=== PATIENT | female | born 1940 | race Caucasian/White ===

== ENCOUNTER 2018-06-25 12:13 | Inpatient (IN) | payer MEDICARE, SELFPAY ==
[2018-06-25] VITALS (18 sets, daily range): BP systolic 97–203; BP diastolic 53–118; PULSE 103–148; RESP 14–50; TEMP 36.4–36.7; O2SAT 97–100; BMI 19.2
--- NOTE | 2018-06-25 | DI.ECHO.S_ITS ---
[facility] +---------+ : : [address] : : : [place], [place] : : : : [id number] : : : : Phone: [phone]+ Echocardiogram Report + + :Name: TJ CACERES Study Date: 06/26/2018 Height: 62 in : :[facility] Exam Location: [facility] Weight: 105 lb : : Gender: Female BSA: 1.5 m2 : :: 1940 Age: 77 yrs BP: 168/95 mmHg: :Reason For Study: Atrial Fibrillation : :Ordering Physician: Yassine : :Hospitalist Performed By: Lea Ramirez : :Referring: JUNE CORTÉS : + + Interpretation Summary 1) Mild concentric left ventricular hypertrophy with normal size and low normal systolic function (EF 50-55%). 2) Mildly enlarged right ventricular size with normal function. 3) Both atria are severely dilated. 4) The right ventricular systolic pressure is estimated to be at least 41 mmHg based on an estimated right atrial pressure of 8 mm Hg. 5) No prior Echo available for comparison. Procedure: A two-dimensional transthoracic echocardiogram with color flow and Doppler was performed. The study quality was technically good. There is no prior echocardiogram noted for this patient. The patient was in atrial fibrillation with rapid ventricular response during the exam with a heart rate exceeding 100 bpm. Left Ventricle: The left ventricle is normal in size. There is mild concentric left ventricular hypertrophy. ([id number] variability due to atrial fibrillation). Left ventricular systolic function is low normal. The ejection fraction is estimated to be 50-55%. Diastolic function could not be accurately assessed due to atrial fibrillation. Right Ventricle: The right ventricle is mildly dilated. The right ventricular systolic function is normal. Atria: Both atria are severely dilated. The interatrial septum is intact with no evidence for an atrial septal defect. Mitral Valve: The mitral valve is normal in structure and function. There is mild mitral regurgitation. Aortic Valve: The aortic valve is trileaflet. The aortic valve opens well. There is no aortic valve stenosis. No aortic regurgitation is present. Tricuspid Valve: The tricuspid valve is normal in structure and function. There is mild tricuspid regurgitation. The right ventricular systolic pressure is estimated to be at least 41 mmHg based on an estimated right atrial pressure of 8 mm Hg. Pulmonic Valve: The pulmonic valve is normal in structure and function. There is a trace or physiologic amount of pulmonic regurgitation. Great Vessels: The aortic root is normal size. The ascending aorta is normal in size. The IVC is dilated (diameter is greater than 2.1 cm) yet it collapses greater than 50% with a sniff. This suggests a right atrial pressure of 8 mm Hg. Pericardium/ Pleura There is no pericardial effusion. There is no pleural effusion. MMode/2D Measurements & Calculations LVIDd: 4.7 cm LVOT diam: 2.1 cm LVIDs: 2.9 cm Ao root diam: 3.5 cm FS: 38.4 % Ao Arch Diam (Prox Trans): 3.3 cm IVSd: 0.88 cm LVPWd: 1.2 cm LV nelson. diameter/BSA (cm/m^2): 3.2 LV sys. diameter/BSA (cm/m^2): 2.0 LA A2 area: 25.9 cm2 RA long axis: 5.4 cm LA A4 area: 30.6 cm2 RA area: 21.0 cm2 LA length (vol): 6.3 cm RA vol: 69.3 ml LA vol: 106.8 ml RA : 47.7 ml/m2 LA vol index: 73.5 ml/m2 IVC diam: 2.1 cm TAPSE: 1.8 cm Doppler Measurements & Calculations Ao V2 max: 92.6 cm/sec LVOT Max Johnie: 82.7 cm/sec Ao V2 mean: 55.7 cm/sec LV V1 max P.7 mmHg Ao max P.4 mmHg LV V1 VTI: 13.3 cm Ao mean P.4 mmHg AGUSTÍN(I,D): 2.8 cm2 Ao V2 VTI: 15.8 cm AGUSTÍN(V,D): 3.0 cm2 sev ratio: 0.84 AGUSTÍN indexed to BSA (cm^2/m^2): 1.9 TR max johnie: 285.4 cm/sec TR max P.6 mmHg Reading Physician:05:44 PM
--- NOTE | 2018-06-25 12:35 | ED_ITS ---
HPI - Arrhythmia/Palpitations General Chief Complaint: Arrhythmia/Palpitations Stated Complaint: AFIB,SICK Time Seen by Provider: 06/25/18 12:34 Source: patient and family Mode of arrival: ambulatory Limitations: no limitations History of Present Illness HPI narrative: Patient is a 77-year-old female with a history of paroxysmal atrial fibrillation here for palpitations and shortness of breath and chest pressure. She states that she occasionally gets atrial fibrillation. She is unsure exactly when she went into her current episode of atrial fibrillation however has felt more symptoms today. Patient is on warfarin for this. She has had atrial fibrillation in the past requiring IV medications at admission to the hospital. She states she has been taking her medications. Related Data Home Medications Medication Instructions Recorded Confirmed amiodarone 1 tab PO DAILY 06/25/18 06/25/18 gabapentin 1 cap PO BEDTIME 06/25/18 06/25/18 metoprolol succinate 1 tab PO BID 06/25/18 06/25/18 ondansetron 1 tab PO Q4-6H PRN 06/25/18 06/25/18 oxycodone-acetaminophen 2 tab PO BID 06/25/18 06/25/18 paroxetine HCl 1 tab PO DAILY 06/25/18 06/25/18 warfarin 1 tab PO QPM 06/25/18 06/25/18 Allergies Allergy/AdvReac Type Severity Reaction Status Date / Time Latex, Natural Rubber Allergy Mild Hives Verified 06/25/18 12:33 Review of Systems Constitutional Reports fatigue and Denies fever(s) Cardiovascular Reports chest pain, Reports rapid heart rate, Reports irregular heart rhythm, Reports lightheadedness, Reports palpitations and Reports dyspnea Respiratory Reports dyspnea Gastrointestinal Gastrointestinal: Denies abdominal pain, Denies nausea and Denies vomiting Musculoskeletal Denies myalgias and Denies arthralgias Integumentary/Breasts Denies lesions and Denies rash Endocrine Reports fatigue and Reports palpitations Hematologic/Lymphatic Denies easy bleeding and Denies easy bruising [facility] Medical History Atrial fibrillation with RVR (Acute) Chronic anticoagulation (Acute) History of stroke (Acute) Expressive aphasia (Acute) Chronic back pain (Acute) CVA (cerebrovascular accident) (Acute) Dysarthria (Acute) Smoker (Acute) Surgical History Hx of cholecystectomy (Acute) Social History household members: family and children Smoking Status: Current some day smoker Exam Initial Vital Signs Initial Vital Signs: Vital Signs Temperature 97.5 F L 06/25/18 12:29 Pulse Rate 148 H 06/25/18 12:29 Respiratory Rate 50 H 06/25/18 12:29 Blood Pressure 179/103 H 06/25/18 12:29 Pulse Oximetry 97 06/25/18 12:29 Const General: cooperative and well groomed Orientation: alert, awake and oriented x3 HENMT Head: normal to inspection and normocephalic Resp Effort & Inspection: normal respiratory effort Auscultation: clear to auscultation bilaterally Cardio Rate: tachycardic Rhythm: abnormal rhythm irregularly irregular Pulses: radial pulses present GI Inspection: non-distended Palpation: soft and No tender Skin Lesions: no lesions Rashes: no rashes Neuro General: alert, awake and oriented x3 Extrem General: normal to inspection and capillary refill normal Psych Appearance: grossly normal and well kempt Course Orders Ordered: ED Orders 06/25/18 12:30 B Type Natriuretic Peptide Stat Basic Metabolic Panel Stat Complete Blood Count AUTO DIFF Stat Troponin I Stat 06/25/18 12:36 XR chest 1V Stat 06/25/18 13:02 Prothrombin Time INR Stat 06/25/18 16:20 Consult to Dietitian, Adult Routine 06/25/18 17:38 Hepatic (Liver) Panel Routine Magnesium Urgent 06/26/18 05:00 Basic Metabolic Panel Routine Complete Blood Count AUTO DIFF Routine Prothrombin Time INR Routine Acetaminophen (Tylenol) 650 mg PO Q6HR PRN PRN Reason: As Needed for Fever/Mild Pain Amiodarone HCl (Cordarone) 200 mg PO DAILY TEVIN Gabapentin (Neurontin) 300 mg PO BEDTIME TEVIN Sodium Chloride (Normal Saline 0.9%) 1,000 mls @ 50 mls/hr IV CONT TEVIN Last Infusion: 06/25/18 15:54 Dose: 100 mls/hr Admin: 06/25/18 12:49 Dose: 100 mls/hr Amiodarone HCl/Dextrose (Nexterone) 360 mg in 200 mls @ 33.333 mls/hr IV NOW ONE; Protocol Stop: 06/25/18 22:24 Last Admin: 06/25/18 16:52 Dose: 33.3 ml/hr, 33.3 mls/hr Amiodarone HCl/Dextrose (Nexterone) 360 mg in 200 mls @ 16.7 mls/hr IV CONT TEVIN ; Protocol Stop: 07/26/18 10:24 Potassium Chloride 40 meq/ (Sodium Chloride) 520 mls @ 130 mls/hr IV NOW ONE Stop: 06/25/18 20:29 Last Admin: 06/25/18 17:43 Dose: 130 mls/hr Magnesium Hydroxide (Milk Of Magnesia) 30 ml PO BID TEVIN Metoprolol Succinate (Toprol Xl) 50 mg PO BID [facility] Last Admin: 06/25/18 18:08 Dose: 50 mg Morphine Sulfate (Morphine) 1 mg IV Q4HR PRN PRN Reason: Pain, Moderate (4-6) Ondansetron HCl (Zofran) 4 mg IV Q4HR PRN PRN Reason: Nausea And Vomiting Last Admin: 06/25/18 17:43 Dose: 4 mg Oxycodone/Acetaminophen (Percocet 5/325) 2 tab PO BID [facility] Paroxetine HCl (Paxil) 10 mg PO DAILY [facility] Warfarin Sodium (Coumadin) 4 mg PO QPM [facility] Last Admin: 06/25/18 18:08 Dose: 4 mg Discontinued Medications Diltiazem HCl (Cardizem) 10 mg IV NOW ONE Stop: 06/25/18 12:36 Last Admin: 06/25/18 12:49 Dose: 10 mg Enoxaparin Sodium (Lovenox) 40 mg SUBCUT NOW ONE Stop: 06/25/18 18:16 Last Admin: 06/25/18 18:16 Dose: 40 mg Diltiazem HCl 125 mg/ Dextrose 125 mls @ 5 mls/hr IV TITRATE [facility]; Protocol Last Titration: 06/25/18 16:00 Dose: 0 mg/hr, 0 mls/hr Titration: 06/25/18 15:53 Dose: 25 mg/hr, 25 mls/hr Titration: 06/25/18 15:23 Dose: 25 mg/hr, 25 mls/hr Titration: 06/25/18 15:00 Dose: 20 mg/hr, 20 mls/hr Titration: 06/25/18 14:10 Dose: 15 mg/hr, 15 mls/hr Titration: 06/25/18 13:53 Dose: 10 mg/hr, 10 mls/hr Admin: 06/25/18 13:03 Dose: 5 mg/hr, 5 mls/hr Amiodarone HCl/Dextrose (Nexterone) 150 mg in 100 mls @ 600 mls/hr IV NOW ONE; Protocol Stop: 06/25/18 16:24 Last Infusion: 06/25/18 16:52 Dose: 0 mls/hr Admin: 06/25/18 16:21 Dose: 600 mls/hr Ondansetron HCl (Zofran) 4 mg IV NOW ONE Stop: 06/25/18 12:36 Last Admin: 06/25/18 12:49 Dose: 4 mg Ondansetron HCl (Zofran) 4 mg IV NOW ONE Stop: 06/25/18 13:56 Last Admin: 06/25/18 13:57 Dose: 4 mg Oxycodone/Acetaminophen (Percocet 5/325) 1 tab PO NOW ONE Stop: 06/25/18 15:33 Last Admin: 06/25/18 15:40 Dose: 1 tab Vital Signs - 8 hr 06/25/18 12:29 06/25/18 12:49 06/25/18 12:51 Temperature 97.5 F L Pulse Rate 148 H 129 H 137 H Respiratory Rate 50 H 28 H Blood Pressure 179/103 H 202/105 H Blood Pressure [Right Arm] 203/108 H Pulse Oximetry 97 98 06/25/18 13:03 06/25/18 14:07 06/25/18 15:07 Temperature Pulse Rate 120 H 134 H 115 H Respiratory Rate 18 14 Blood Pressure 171/100 H Blood Pressure [Right Arm] 186/111 H 97/53 L Pulse Oximetry 100 100 06/25/18 15:45 06/25/18 16:00 06/25/18 16:35 Temperature 98.0 F Pulse Rate 145 H 135 H 135 H Respiratory Rate 26 H Blood Pressure 163/92 H 159/107 H 184/104 H Blood Pressure [Right Arm] Pulse Oximetry 06/25/18 18:08 06/25/18 19:20 06/25/18 19:21 Temperature Pulse Rate 126 H 114 H Respiratory Rate Blood Pressure 158/118 H 168/103 H Blood Pressure [Right Arm] Pulse Oximetry 99 MDM - Arrhythmia/Palpitations Lab Data Attestation: I reviewed the patient's lab results. Result diagrams: 06/25/18 12:30 06/25/18 12:30 Lab Results 06/25/18 06/25/18 06/25/18 Range/Units 12:30 12:30 13:02 WBC 14.0 H (4.5-11.0) X10^3/uL RBC 4.69 (4.0-5.2) X10^6/uL Hgb 14.7 (12.0-16.0) g/dL Hct 43.3 (36-46) % MCV 92.2 (80-100) fL MCH 31.4 (26-34) PG MCHC 34.1 (30-36) % RDW 14.7 (11.6-14.8) % Plt Count 395 (150-400) X10^3/uL Neut % (Auto) 75.0 (50-75) % Lymph % (Auto) 16.4 L (25-40) % [place] % (Auto) 8.3 (3-14) % Eos % (Auto) 0.0 L (2-4) % Baso % (Auto) 0.3 (0-2) % Neut # (Auto) 61833 H (6387-2132) /uL PT 20.6 H (10.1-12.7) SECONDS INR 1.9 H (0.9-1.3) Sodium 140 (137-145) mmol/L Potassium 3.6 (3.4-5.1) mmol/L Chloride 100 (98-107) mmol/L Carbon Dioxide 18 L (22-32) mmol/L BUN 27 H (7-17) mg/dL Creatinine 1.00 (0.52-1.04) mg/dL Estimated GFR 53.8 L (>60) mL/min BUN/Creatinine Ratio 27.0 H (6-22) Glucose 164 H (80-110) mg/dL Calcium 10.0 (8.4-10.2) mg/dL Magnesium (1.6-2.3) mg/dL Total Bilirubin (0.2-1.3) mg/dL Conjugated Bilirubin (0.0-0.3) md/dL Unconjugated Bilirubin (0.0-1.1) mg/dL AST (14-36) IU/L ALT (9-52) IU/L Alkaline Phosphatase (38-126) U/L Troponin I < 0.012 (0.01-0.034) ng/mL B-Natriuretic Peptide 194.0 H (<100) Total Protein (6.3-8.2) g/dL Albumin (3.5-5.0) g/dL Globulin (1.7-4.1) g/dL Albumin/Globulin Ratio (1.0-2.8) 06/25/18 06/25/18 Range/Units 17:38 17:38 WBC (4.5-11.0) X10^3/uL RBC (4.0-5.2) X10^6/uL Hgb (12.0-16.0) g/dL Hct (36-46) % MCV (80-100) fL MCH (26-34) PG MCHC (30-36) % RDW (11.6-14.8) % Plt Count (150-400) X10^3/uL Neut % (Auto) (50-75) % Lymph % (Auto) (25-40) % [place] % (Auto) (3-14) % Eos % (Auto) (2-4) % Baso % (Auto) (0-2) % Neut # (Auto) (0900-0431) /uL PT (10.1-12.7) SECONDS INR (0.9-1.3) Sodium (137-145) mmol/L Potassium (3.4-5.1) mmol/L Chloride (98-107) mmol/L Carbon Dioxide (22-32) mmol/L BUN (7-17) mg/dL Creatinine (0.52-1.04) mg/dL Estimated GFR (>60) mL/min BUN/Creatinine Ratio (6-22) Glucose (80-110) mg/dL Calcium (8.4-10.2) mg/dL Magnesium 1.6 (1.6-2.3) mg/dL Total Bilirubin 0.8 (0.2-1.3) mg/dL Conjugated Bilirubin 0.0 (0.0-0.3) md/dL Unconjugated Bilirubin 0.6 (0.0-1.1) mg/dL AST 23 (14-36) IU/L ALT 22 (9-52) IU/L Alkaline Phosphatase 75 (38-126) U/L Troponin I (0.01-0.034) ng/mL B-Natriuretic Peptide (<100) Total Protein 7.5 (6.3-8.2) g/dL Albumin 4.5 (3.5-5.0) g/dL Globulin 3.0 (1.7-4.1) g/dL Albumin/Globulin Ratio 1.5 (1.0-2.8) Imaging Data Chest x-ray: Radiologist's impression: PROCEDURE: XR CHEST 1V INDICATIONS: Palpitations TECHNIQUE: One view of the chest was acquired. COMPARISON: None. FINDINGS: Surgical changes and devices: None. Lungs and pleura: Hyperinflation. There is mild diffuse interstitial prominence. No pleural effusions or pneumothorax. Lungs are clear. Mediastinum: Mediastinal contours appear normal. Heart size is normal. Bones and chest wall: No suspicious bony lesions. Overlying soft tissues appear unremarkable. Severe scoliosis. There is an old right eighth rib fracture. IMPRESSION: 1. No acute cardiopulmonary disease. 2. Hyperinflation suggesting COPD. 3. Mild diffuse interstitial prominence. Dictated by: Beltran Mckenzie M.D. on 06/25/2018 at 14:20 Approved by: Beltran Mckenzie M.D. on 06/25/2018 at 14:21 ECG Data Attestation: I personally reviewed and interpreted this ECG as follows: Prior ECG tracings: not available for review Interpretation: Atrial fibrillation Ventricular rate of 135 Normal axis Normal QRS Occasional PVCs Nonspecific ST T wave changes MDM Narrative Medical decision making narrative: 77-year-old female with known paroxysmal AFib currently in AFib with RVR. Parents and is on amiodarone. She states she has been taking his medication. Unsure as to when today's episode started. She is also taking Coumadin. She was started on diltiazem which improved her heart rate. Discussed the case with Dr. Cramer they will admit for further evaluation and treatment. I discussed the admission with the patient the family were bedside. They expressed understanding and agreement plan Discharge Plan Departure Patient Disposition: Admitted As Inpatient Clinical Impression: Atrial fibrillation with RVR Discharge Date/Time: 06/25/18 15:59 Interventions: ED Discharge Assessment Last Done: 06/25/18 15:56 Admit Date/Time: 06/25/18 14:36 Admit Provider: Dickson Cramer
[2018-06-25] MEDS: dilTIAZem 5 MG/ML SDV 10 MG IV (12:49)
[2018-06-25] MEDS: SODIUM CHLORIDE 0.9% 1,000 ML 100 ML IV (12:49)
[2018-06-25] MEDS: ONDANSETRON 4 MG/2 ML INJ IV ×3 (12:49→17:43)
[2018-06-25 12:56] LABS: Add Manual Diff / Slide Review NO; Basophils Percent Auto 0.3 % (0-2); Hematocrit 43.3 % (36-46); Hemoglobin 14.7 g/dL (12.0-16.0); Lymphocytes Percent Auto 16.4 % (25-40); Mean Corpuscular HGB Conc 34.1 % (30-36); Mean Corpuscular Hemoglobin 31.4 PG (26-34); Mean Corpuscular Volume 92.2 fL (80-100); Monocytes Percent Auto 8.3 % (3-14); Neutrophils Absolute Auto 10500 /uL (3000-5900); Platelet Count 395 X10^3/uL (150-400); Red Blood Cell Count 4.69 X10^6/uL (4.0-5.2); Red Cell Distribution Width 14.7 % (11.6-14.8)
[2018-06-25 13:02] LABS: Blood Urea Nitrogen 27 mg/dL (7-17); Carbon Dioxide 18 mmol/L (22-32); Chloride 100 mmol/L (98-107); Estimated Glomerular Filt Rate 53.8 mL/min (>60); Glucose 164 mg/dL (80-110); HEMOLYSIS 31 (0-50); Potassium 3.6 mmol/L (3.4-5.1); Sodium 140 mmol/L (137-145)
[2018-06-25] MEDS: dilTIAZem 125 MG in DEXTROSE 5 % IN WATER 100 ML IV (13:03)
[2018-06-25 13:15] LABS: Troponin I < 0.012 ng/mL (0.01-0.034)
[2018-06-25 13:16] LABS: INR 1.9 (0.9-1.3); Prothrombin Time 20.6 SECONDS (10.1-12.7)
[2018-06-25] MEDS: OXYCODONE/ACETAMINOPHEN 5/325 TABLET 1 TAB PO (15:40)
[2018-06-25] MEDS: AMIODARONE 150 MG/100 ML PIGGYBACK 600 MG IV (16:21)
[2018-06-25] MEDS: AMIODARONE 360 MG/200 ML PIGGYBACK 33.3 MG IV (16:52)
--- NOTE | 2018-06-25 17:11 | P.HP_ITS ---
History of Present Illness Date Patient Seen: 06/25/18 Time Patient Seen: 16:50 Chief complaint: AFIB,SICK Narrative: Patient is a 77-year-old female presented to emergency department due to complaints heart fluttering, nausea and vomiting. She has a history of paroxysmal atrial fibrillation for which she is on amiodarone, metoprolol and warfarin. She recently moved to the area and previously was living in [facility]. She has history of stroke back in January 2018 associated with atrial fibrillation and with resultant mild expressive aphasia. She has had 2 previous cardioversions. She denies history of coronary artery disease or CHF. Current symptoms began 2 days ago with sensation of fluttering in her chest, and recurrent nausea and vomiting. The nausea and vomiting has historically been present when she is in atrial fibrillation. She states she has missed a few medication doses recently. She has had fluctuations in INR with recent adjustment of her warfarin. Most recently INR was around 6.0 and PCP lowered her warfarin dose about 5 days ago. On initial ER evaluation, patient was noted to be very uncomfortable, tachypneic , hypertensive with ventricular rate in the 140s. She was given IV diltiazem and started on IV diltiazem drip titrated to 25 milligrams/hour but without improvement in her rate control. She had some more vomiting on way to the ICU. Also complaining of some chronic back pain for which she takes Percocet at home. Patient History Medical History Atrial fibrillation with RVR (Acute) Chronic anticoagulation (Acute) History of stroke (Acute) Expressive aphasia (Acute) Chronic back pain (Acute) CVA (cerebrovascular accident) (Acute) Dysarthria (Acute) Smoker (Acute) Surgical History Hx of cholecystectomy (Acute) Family & Social History Family History: Reviewed 06/25/18 by Dickson Cramer MD Social History: household members family,children Prior Living Arrangements House Safety & Behavioral: Feels Safe in Current Yes Environment Been Physically Hurt or No Threatened By a Person Suicidal Ideation Description None Tobacco & Substance use: Tobacco type cigarettes Smoking Status Current some day smoker alcohol intake frequency 0-2 drinks per day Substance Use Type does not use Meds Home Medications Medication Instructions Recorded Confirmed Type amiodarone 1 tab PO DAILY 06/25/18 06/25/18 History gabapentin 1 cap PO BEDTIME 06/25/18 06/25/18 History metoprolol succinate 1 tab PO BID 06/25/18 06/25/18 History ondansetron 1 tab PO Q4-6H PRN 06/25/18 06/25/18 History oxycodone-acetaminophen 1 tab PO BID 06/25/18 06/25/18 History paroxetine HCl 1 tab PO DAILY 06/25/18 06/25/18 History warfarin 1 tab PO QPM 06/25/18 06/25/18 History Allergies Allergy/AdvReac Type Severity Reaction Status Date / Time Latex, Natural Rubber Allergy Mild Hives Verified 06/25/18 12:33 Review of Systems Review of Systems All systems reviewed & are unremarkable except as noted in HPI and below Exam Vital Signs (past 8 hours): - 06/25/18 12:29 06/25/18 12:49 06/25/18 12:51 Temperature 97.5 F L Pulse Rate 148 H 129 H 137 H Respiratory Rate 50 H 28 H Blood Pressure 179/103 H 202/105 H Blood Pressure [Right Arm] 203/108 H Pulse Oximetry 97 98 06/25/18 13:03 06/25/18 14:07 06/25/18 15:07 Temperature Pulse Rate 120 H 134 H 115 H Respiratory Rate 18 14 Blood Pressure 171/100 H Blood Pressure [Right Arm] 186/111 H 97/53 L Pulse Oximetry 100 100 06/25/18 15:45 06/25/18 16:00 06/25/18 16:35 Temperature 98.0 F Pulse Rate 145 H 135 H 135 H Respiratory Rate 26 H Blood Pressure 163/92 H 159/107 H 184/104 H Blood Pressure [Right Arm] Pulse Oximetry Oxygen Delivery Method Room Air Narrative Exam Narrative: GENERAL: Thin alert elderly female in obvious distress, anxious appearing, labored breathing HEAD: Atraumatic. Normocephalic. EYES: Pupils equal, round and reactive. Extraocular motions intact. No scleral icterus. No injection or drainage. NECK: Trachea midline. No JVD or lymphadenopathy. CARDIOVASCULAR: Normal S1 and S2, irregularly irregular rhythm with rapid ventricular rate, no murmur RESPIRATORY: Clear to auscultation bilaterally. GASTROINTESTINAL: Abdomen nondistended, soft, non-tender. No hepato- splenomegaly, or palpable masses. EXTREMITIES: No edema. NEUROLOGICAL: Alert, well oriented, speech with mild expressive aphasia, normal bilateral upper and lower extremity strength SKIN: warm, dry, no rash Objective Imaging Chest x-ray: Radiologist's impression: 1. No acute cardiopulmonary disease. 2. Hyperinflation suggesting COPD. 3. Mild diffuse interstitial prominence. ECG: Atrial fibrillation with RVR, diffuse ST depression and T-wave abnormalities likely rate related Labs Result Diagrams: 06/25/18 12:30 06/25/18 12:30 Labs: Laboratory Results - last 24 hr 06/25/18 06/25/18 06/25/18 12:30 12:30 13:02 WBC 14.0 H RBC 4.69 Hgb 14.7 Hct 43.3 MCV 92.2 MCH 31.4 MCHC 34.1 RDW 14.7 Plt Count 395 Neut % (Auto) 75.0 Lymph % (Auto) 16.4 L [place] % (Auto) 8.3 Eos % (Auto) 0.0 L Baso % (Auto) 0.3 Neut # (Auto) 62060 H PT 20.6 H INR 1.9 H Sodium 140 Potassium 3.6 Chloride 100 Carbon Dioxide 18 L BUN 27 H Creatinine 1.00 Estimated GFR 53.8 L BUN/Creatinine Ratio 27.0 H Glucose 164 H Calcium 10.0 Troponin I < 0.012 B-Natriuretic Peptide 194.0 H Assessment & Plan Plan: Assessment/Plan Narrative: 1. Paroxysmal atrial fibrillation with RVR: Patient with severe symptoms associated with tachycardia, unsuccessful rate control with Cardizem drip. Plan : Admit to ICU. Ordered amiodarone bolus 150 mg IV followed by continuous infusion of 360 mg over 6 hr and then 360 mg over 12 hr. Continue oral amiodarone 200 mg daily and metoprolol XL 50 mg b.i.d. per home routine. Continue warfarin 4 mg q.p.m. which was a recent dose adjustment for her. Lovenox 40 mg subcu daily until her INR is above 2.0 due to her history of embolic stroke. Potassium chloride rider 40 mEq to get serum potassium above 4.0. Transthoracic echo. Add on labs for magnesium, TSH, and hepatic function panel. 2. Intractable nausea and vomiting due to atrial fibrillation: Provide maintenance IV fluids, Zofran 4 mg IV q.4 hours as needed. 3. Chronic back pain with opioid dependency: Continue routine Percocet twice daily. In addition morphine 2 mg IV every 4 hr as needed while unable to take p.o.. 4. Code status: Patient wishes full code 5. Leukocytosis, presumed acute due to nausea and vomiting: Recheck CBC in a.m.. 6. Acute nonfasting hyperglycemia: Likely stress related. Recheck metabolic panel in a.m.. Patient is critically ill and meets criteria for critical care management due to requirement of IV drip requiring continuous cardiac monitoring. Total critical care floor management of 60 min during course of today's encounter. Quality VTE Deep Vein Thrombosis/Pulmonary Embolism Present on Admission: No
[2018-06-25] MEDS: POTASSIUM CHLORIDE 40 MEQ in SODIUM CHLORIDE 0.9% 500 ML 130 ML IV (17:43)
[2018-06-25] MEDS: WARFARIN 2 MG TABLET 4 MG PO (18:08)
[2018-06-25] MEDS: METOPROLOL ER 50 MG TABLET PO (18:08)
[2018-06-25] MEDS: ENOXAPARIN 40 MG/0.4 ML SYRINGE SUBCUT (18:16)
[2018-06-25 18:32] LABS: Magnesium 1.6 mg/dL (1.6-2.3)
[2018-06-25 18:33] LABS: Alanine Aminotransferase 22 IU/L (9-52); Albumin 4.5 g/dL (3.5-5.0); Albumin Globulin Ratio 1.5 (1.0-2.8); Alkaline Phosphatase 75 U/L (38-126); Aspartate Aminotransferase 23 IU/L (14-36); Bilirubin Total 0.8 mg/dL (0.2-1.3); Bilirubin Unconjugated 0.6 mg/dL (0.0-1.1); HEMOLYSIS < 15 (0-50); Total Protein 7.5 g/dL (6.3-8.2)
--- NOTE | 2018-06-25 18:48 | PC.NURSE ---
Addendum entered by Bethany Eric R.N. 06/25/18 22:05: 2200 - Pt resting quietly. HR 100-110's. K-rider complete. Amiodarone gtt decreased to 16.7 ml/hr. Bed alarm on. Call light in reach. Original Note: 1545 - Pt to room from ER able to stand pivot transfer to bed. Tremulous. Reports feeling cold. Warm blankets provided. HR 130-140's, Cardizem gtt at 25mg/hr. Dr. Cramer at bedside. Pt reports occasionally forgetting to take meds. Also been feeling nauseated since Sunday. IV to right wrist. Orders to stop cardizem, start amiodarone gtt and K-rider. Sammie SAMAYOA called to assist with additional access. 1800 - Pt restless in bed, reports chronic back pain. Discussed pain control. Occasion waves of nausea with small amounts of bile-like emesis. IV zofran reported by pt to be helping. PO metoprolol given early, hr 126 BP 158/118, Pt reports not having taken her meds this a.m.
[2018-06-25] MEDS: OXYCODONE/ACETAMINOPHEN 5/325 TABLET 2 TAB PO (20:15)
[2018-06-25] MEDS: GABAPENTIN 300 MG CAPSULE PO (20:15)
[2018-06-25 20:53] LABS: TSH w/ Reflex to FT4 2.43 uIU/mL (0.47-4.68)
[2018-06-25] MEDS: AMIODARONE 360 MG/200 ML PIGGYBACK 16.7 MG IV (22:08)
[2018-06-26] VITALS (27 sets, daily range): BP systolic 103–190; BP diastolic 62–118; PULSE 73–117; RESP 10–21; TEMP 36.2–37.2; O2SAT 95–100
[2018-06-26] MEDS: SODIUM CHLORIDE 0.9% 1,000 ML 50 ML IV (02:53)
[2018-06-26 05:49] LABS: Add Manual Diff / Slide Review NO; Basophils Percent Auto 0.2 % (0-2); Hematocrit 36.3 % (36-46); Hemoglobin 12.4 g/dL (12.0-16.0); Lymphocytes Percent Auto 22.5 % (25-40); Mean Corpuscular HGB Conc 34.1 % (30-36); Mean Corpuscular Hemoglobin 31.8 PG (26-34); Mean Corpuscular Volume 93.1 fL (80-100); Monocytes Percent Auto 9.8 % (3-14); Neutrophils Absolute Auto 9900 /uL (3000-5900); Neutrophils Percent Auto 67.5 % (50-75); Platelet Count 291 X10^3/uL (150-400); Red Cell Distribution Width 14.4 % (11.6-14.8); White Blood Cell Count 14.7 X10^3/uL (4.5-11.0)
[2018-06-26 05:50] LABS: INR 1.9 (0.9-1.3); Prothrombin Time 20.3 SECONDS (10.1-12.7)
[2018-06-26 05:55] LABS: Blood Urea Nitrogen 24 mg/dL (7-17); Calcium 8.7 mg/dL (8.4-10.2); Carbon Dioxide 23 mmol/L (22-32); Chloride 106 mmol/L (98-107); Estimated Glomerular Filt Rate > 60.0 mL/min (>60); Glucose 93 mg/dL (80-110); HEMOLYSIS < 15 (0-50); Potassium 3.3 mmol/L (3.4-5.1); Sodium 139 mmol/L (137-145)
--- NOTE | 2018-06-26 08:42 | PM.PN.1 ---
Subjective Date Patient Seen: 06/26/18 Interval history: Patient much more comfortable with AFib rate controlled. No longer having nausea or and vomiting. Respirations much less labored and now normal. On salvage cutter she remains in AFib with rate in the 80s on IV amiodarone drip. Exam Vital Signs (past 8 hours): - 06/26/18 01:00 06/26/18 01:19 06/26/18 02:00 Temperature Pulse Rate 104 H 91 H Respiratory Rate 14 19 Blood Pressure 158/94 H 162/90 H Pulse Oximetry 99 99 96 06/26/18 03:00 06/26/18 03:17 06/26/18 04:15 Temperature 97.2 F L Pulse Rate 87 73 Respiratory Rate 13 14 Blood Pressure 103/62 114/70 Pulse Oximetry 98 98 96 06/26/18 05:00 06/26/18 06:00 06/26/18 06:26 Temperature Pulse Rate 88 77 Respiratory Rate 12 13 Blood Pressure 125/91 H 124/80 Pulse Oximetry 99 97 98 Oxygen Delivery Method Room Air Narrative Exam Narrative: GENERAL: Alert thin elderly female who is in no acute distress CHEST: Clear to auscultation bilaterally. CARDIAC: Irregularly irregular rhythm ABDOMEN: Nondistended, soft, nontender EXTREMITIES: no edema. NEUROLOGICAL: Well oriented, nonfocal SKIN: Warm, dry, no petechiae, no rash Objective Labs Result Diagrams: 06/26/18 05:00 06/26/18 05:00 Labs: Laboratory Results - last 24 hr 06/25/18 06/25/18 06/25/18 12:30 12:30 13:02 WBC 14.0 H RBC 4.69 Hgb 14.7 Hct 43.3 MCV 92.2 MCH 31.4 MCHC 34.1 RDW 14.7 Plt Count 395 Neut % (Auto) 75.0 Lymph % (Auto) 16.4 L [place] % (Auto) 8.3 Eos % (Auto) 0.0 L Baso % (Auto) 0.3 Neut # (Auto) 05264 H PT 20.6 H INR 1.9 H Sodium 140 Potassium 3.6 Chloride 100 Carbon Dioxide 18 L BUN 27 H Creatinine 1.00 Estimated GFR 53.8 L BUN/Creatinine Ratio 27.0 H Glucose 164 H Calcium 10.0 Magnesium Total Bilirubin Conjugated Bilirubin Unconjugated Bilirubin AST ALT Alkaline Phosphatase Troponin I < 0.012 B-Natriuretic Peptide 194.0 H Total Protein Albumin Globulin Albumin/Globulin Ratio TSH Nasal Screen MRSA (PCR) 06/25/18 06/25/18 06/25/18 16:50 17:35 17:38 WBC RBC Hgb Hct MCV MCH MCHC RDW Plt Count Neut % (Auto) Lymph % (Auto) [place] % (Auto) Eos % (Auto) Baso % (Auto) Neut # (Auto) PT INR Sodium Potassium Chloride Carbon Dioxide BUN Creatinine Estimated GFR BUN/Creatinine Ratio Glucose Calcium Magnesium Total Bilirubin 0.8 Conjugated Bilirubin 0.0 Unconjugated Bilirubin 0.6 AST 23 ALT 22 Alkaline Phosphatase 75 Troponin I B-Natriuretic Peptide Total Protein 7.5 Albumin 4.5 Globulin 3.0 Albumin/Globulin Ratio 1.5 TSH 2.43 Nasal Screen MRSA (PCR) Negative for mrsa 06/25/18 06/26/18 06/26/18 17:38 05:00 05:00 WBC 14.7 H RBC 3.90 L Hgb 12.4 Hct 36.3 MCV 93.1 MCH 31.8 MCHC 34.1 RDW 14.4 Plt Count 291 Neut % (Auto) 67.5 Lymph % (Auto) 22.5 L [place] % (Auto) 9.8 Eos % (Auto) 0.0 L Baso % (Auto) 0.2 Neut # (Auto) 9900 H PT 20.3 H INR 1.9 H Sodium Potassium Chloride Carbon Dioxide BUN Creatinine Estimated GFR BUN/Creatinine Ratio Glucose Calcium Magnesium 1.6 Total Bilirubin Conjugated Bilirubin Unconjugated Bilirubin AST ALT Alkaline Phosphatase Troponin I B-Natriuretic Peptide Total Protein Albumin Globulin Albumin/Globulin Ratio TSH Nasal Screen MRSA (PCR) 06/26/18 05:00 WBC RBC Hgb Hct MCV MCH MCHC RDW Plt Count Neut % (Auto) Lymph % (Auto) [place] % (Auto) Eos % (Auto) Baso % (Auto) Neut # (Auto) PT INR Sodium 139 Potassium 3.3 L Chloride 106 Carbon Dioxide 23 BUN 24 H Creatinine 0.80 Estimated GFR > 60.0 BUN/Creatinine Ratio 30.0 H Glucose 93 Calcium 8.7 Magnesium Total Bilirubin Conjugated Bilirubin Unconjugated Bilirubin AST ALT Alkaline Phosphatase Troponin I B-Natriuretic Peptide Total Protein Albumin Globulin Albumin/Globulin Ratio TSH Nasal Screen MRSA (PCR) Assessment & Plan Plan: Assessment/Plan Narrative: 1. Paroxysmal atrial fibrillation with RVR: Patient with much improved symptoms since on IV amiodarone drip with rate control. She remains in atrial fibrillation. She presented with severe symptoms associated with tachycardia, unsuccessful rate control with full-doses Cardizem bolus and drip in ER, and admitted to ICU. She received 150 mg amiodarone IV bolus followed by amiodarone infusion 360 mg over 6 hr and then 360 mg over 12 hr which will be completed at 10:00 a.m. this morning. TSH normal. Plan: Transthoracic echo pending. Continue IV amiodarone continuous infusion for another 360 mg over 12 hr which will be completed around 10:00 p.m. in hopes of converting the patient to normal rhythm. Continue oral amiodarone 200 mg daily and metoprolol XL 50 mg b.i.d. per home routine. Will discuss with clinical rehabilitation coordinator on further management in hospital including adjustment of oral medications, such as increase amiodarone to try to keep her in sinus rhythm. Patient states she has not had amiodarone or metoprolol dose adjusted recently. She moved here in April from [facility] and has not established yet with local cardiology. She has apparently had multiple hospitalizations and cardioversions while living in [place] and also had a stroke in January of this year. 2. Anticoagulation status: INR 1.9, unchanged from admission. Plan: Continue warfarin 4 mg q.p.m. which was a recent dose adjustment for her as she was over anticoagulated. Administer Lovenox 40 mg (1 milligram/kilogram) subcu daily at 6:00 p.m. until her INR is above 2.0 due to her history of embolic stroke. May need to up warfarin dose if INR still subtherapeutic on recheck 06/27/2018. 3. Electrolyte deficiency: Low K. Low-normal magnesium. Plan: Provide additional Potassium chloride rider 40 mEq and oral potassium 40 mEq to get serum k => 4.0. Serum magnesium 1.6, low normal-ordered 2 g IV magnesium sulfate. Recheck in a.m.. 4. Intractable nausea and vomiting due to atrial fibrillation: Resolved. Hep-Lock IV, Zofran 4 mg IV q.4 hours as needed. 5. Chronic back pain with opioid dependency: Continue routine Percocet twice daily. 5. Code status: Patient wishes full code 6. Leukocytosis, presumed acute due to nausea and vomiting: No fever or symptoms of obvious infection. Unchanged, Recheck CBC in a.m.. 7. Acute nonfasting hyperglycemia related to acute illness: Resolved, glucose down to normal. Patient is critically ill and meets criteria for critical care management due to requirement of IV drip requiring continuous cardiac monitoring. Total critical care floor management of 60 min during course of today's encounter. Quality VTE Deep Vein Thrombosis/Pulmonary Embolism Present on Admission: No
--- NOTE | 2018-06-26 09:02 | P.PN_ITS ---
Subjective Date Patient Seen: 06/26/18 Interval history: Patient much more comfortable with AFib rate controlled. No longer having nausea or and vomiting. Respirations much less labored and now normal. 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 Exam Vital Signs (past 8 hours): - 06/26/18 01:00 06/26/18 01:19 06/26/18 02:00 Temperature Pulse Rate 104 H 91 H Respiratory Rate 14 19 Blood Pressure 158/94 H 162/90 H Pulse Oximetry 99 99 96 06/26/18 03:00 06/26/18 03:17 06/26/18 04:15 Temperature 97.2 F L Pulse Rate 87 73 Respiratory Rate 13 14 Blood Pressure 103/62 114/70 Pulse Oximetry 98 98 96 06/26/18 05:00 06/26/18 06:00 06/26/18 06:26 Temperature Pulse Rate 88 77 Respiratory Rate 12 13 Blood Pressure 125/91 H 124/80 Pulse Oximetry 99 97 98 Oxygen Delivery Method Room Air Narrative Exam Narrative: GENERAL: Alert thin elderly female who is in no acute distress CHEST: Clear to auscultation bilaterally. CARDIAC: Irregularly irregular rhythm ABDOMEN: Nondistended, soft, nontender EXTREMITIES: no edema. NEUROLOGICAL: Well oriented, nonfocal SKIN: Warm, dry, no petechiae, no rash Objective Labs Result Diagrams: 06/26/18 05:00 06/26/18 05:00 Labs: Laboratory Results - last 24 hr 06/25/18 06/25/18 06/25/18 12:30 12:30 13:02 WBC 14.0 H RBC 4.69 Hgb 14.7 Hct 43.3 MCV 92.2 MCH 31.4 MCHC 34.1 RDW 14.7 Plt Count 395 Neut % (Auto) 75.0 Lymph % (Auto) 16.4 L [place] % (Auto) 8.3 Eos % (Auto) 0.0 L Baso % (Auto) 0.3 Neut # (Auto) 79098 H PT 20.6 H INR 1.9 H Sodium 140 Potassium 3.6 Chloride 100 Carbon Dioxide 18 L BUN 27 H Creatinine 1.00 Estimated GFR 53.8 L BUN/Creatinine Ratio 27.0 H Glucose 164 H Calcium 10.0 Magnesium Total Bilirubin Conjugated Bilirubin Unconjugated Bilirubin AST ALT Alkaline Phosphatase Troponin I < 0.012 B-Natriuretic Peptide 194.0 H Total Protein Albumin Globulin Albumin/Globulin Ratio TSH Nasal Screen MRSA (PCR) 06/25/18 06/25/18 06/25/18 16:50 17:35 17:38 WBC RBC Hgb Hct MCV MCH MCHC RDW Plt Count Neut % (Auto) Lymph % (Auto) [place] % (Auto) Eos % (Auto) Baso % (Auto) Neut # (Auto) PT INR Sodium Potassium Chloride Carbon Dioxide BUN Creatinine Estimated GFR BUN/Creatinine Ratio Glucose Calcium Magnesium Total Bilirubin 0.8 Conjugated Bilirubin 0.0 Unconjugated Bilirubin 0.6 AST 23 ALT 22 Alkaline Phosphatase 75 Troponin I B-Natriuretic Peptide Total Protein 7.5 Albumin 4.5 Globulin 3.0 Albumin/Globulin Ratio 1.5 TSH 2.43 Nasal Screen MRSA (PCR) Negative for mrsa 06/25/18 06/26/18 06/26/18 17:38 05:00 05:00 WBC 14.7 H RBC 3.90 L Hgb 12.4 Hct 36.3 MCV 93.1 MCH 31.8 MCHC 34.1 RDW 14.4 Plt Count 291 Neut % (Auto) 67.5 Lymph % (Auto) 22.5 L [place] % (Auto) 9.8 Eos % (Auto) 0.0 L Baso % (Auto) 0.2 Neut # (Auto) 9900 H PT 20.3 H INR 1.9 H Sodium Potassium Chloride Carbon Dioxide BUN Creatinine Estimated GFR BUN/Creatinine Ratio Glucose Calcium Magnesium 1.6 Total Bilirubin Conjugated Bilirubin Unconjugated Bilirubin AST ALT Alkaline Phosphatase Troponin I B-Natriuretic Peptide Total Protein Albumin Globulin Albumin/Globulin Ratio TSH Nasal Screen MRSA (PCR) 06/26/18 05:00 WBC RBC Hgb Hct MCV MCH MCHC RDW Plt Count Neut % (Auto) Lymph % (Auto) [place] % (Auto) Eos % (Auto) Baso % (Auto) Neut # (Auto) PT INR Sodium 139 Potassium 3.3 L Chloride 106 Carbon Dioxide 23 BUN 24 H Creatinine 0.80 Estimated GFR > 60.0 BUN/Creatinine Ratio 30.0 H Glucose 93 Calcium 8.7 Magnesium Total Bilirubin Conjugated Bilirubin Unconjugated Bilirubin AST ALT Alkaline Phosphatase Troponin I B-Natriuretic Peptide Total Protein Albumin Globulin Albumin/Globulin Ratio TSH Nasal Screen MRSA (PCR) Assessment & Plan Plan: Assessment/Plan Narrative: 1. Paroxysmal atrial fibrillation with RVR: Patient with much improved symptoms since on IV amiodarone drip with rate control. She remains in atrial fibrillation. She presented with severe symptoms associated with tachycardia, unsuccessful rate control with full-doses Cardizem bolus and drip in ER, and admitted to ICU. She received 150 mg amiodarone IV bolus followed by amiodarone infusion 360 mg over 6 hr and then 360 mg over 12 hr which will be completed at 10:00 a.m. this morning. TSH normal. Plan: Transthoracic echo pending. Continue IV amiodarone continuous infusion for another 360 mg over 12 hr which will be completed around 10:00 p.m. in hopes of converting the patient to normal rhythm. Continue oral amiodarone 200 mg daily and metoprolol XL 50 mg b.i.d. per home routine. Will discuss with hot roll laminator on further management in hospital including adjustment of oral medications, such as increase amiodarone to try to keep her in sinus rhythm. Patient states she has not had amiodarone or metoprolol dose adjusted recently. She moved here in April from [facility] and has not established yet with local cardiology. She has apparently had multiple hospitalizations and cardioversions while living in [place] and also had a stroke in January of this year. 2. Anticoagulation status: INR 1.9, unchanged from admission. Plan: Continue warfarin 4 mg q.p.m. which was a recent dose adjustment for her as she was over anticoagulated. Administer Lovenox 40 mg (1 milligram/kilogram ) subcu daily at 6:00 p.m. until her INR is above 2.0 due to her history of embolic stroke. May need to up warfarin dose if INR still subtherapeutic on recheck 06/27/2018. 3. Electrolyte deficiency: Low K. Low-normal magnesium. Plan: Provide additional Potassium chloride rider 40 mEq and oral potassium 40 mEq to get serum k => 4.0. Serum magnesium 1.6, low normal-ordered 2 g IV magnesium sulfate. Recheck in a.m.. 4. Intractable nausea and vomiting due to atrial fibrillation: Resolved. Hep- Lock IV, Zofran 4 mg IV q.4 hours as needed. 5. Chronic back pain with opioid dependency: Continue routine Percocet twice daily. 5. Code status: Patient wishes full code 6. Leukocytosis, presumed acute due to nausea and vomiting: No fever or symptoms of obvious infection. Unchanged, Recheck CBC in a.m.. 7. Acute nonfasting hyperglycemia related to acute illness: Resolved, glucose down to normal. Patient is critically ill and meets criteria for critical care management due to requirement of IV drip requiring continuous cardiac monitoring. Total critical care floor management of 60 min during course of today's encounter. Quality VTE Deep Vein Thrombosis/Pulmonary Embolism Present on Admission: No
[2018-06-26] MEDS: MAGNESIUM SULFATE 2 GM/50 ML PIGGYBACK IV (09:07)
[2018-06-26] MEDS: POTASSIUM CHLORIDE 40 MEQ in SODIUM CHLORIDE 0.9% 500 ML 130 ML IV (09:08)
[2018-06-26] MEDS: PARoxetine 10 MG TABLET PO (09:08)
[2018-06-26] MEDS: METOPROLOL ER 50 MG TABLET PO ×2 (09:08→20:55)
[2018-06-26] MEDS: AMIODARONE 200 MG TABLET PO ×2 (09:08→20:56)
[2018-06-26] MEDS: OXYCODONE/ACETAMINOPHEN 5/325 TABLET 2 TAB PO (09:10)
--- NOTE | 2018-06-26 09:12 | CM.DANOTE ---
Addendum entered by Shala Morejon R.N. 06/26/18 13:58: Left message for patient's daughter, Charity to call. Has not been in patient's room, and would like to discuss plan. Original Note: DCP:Case received, EMR reviewed and wrote name on board, patient sleeping. DCP template completed with information currently available. Patient is a 77 year old female who admitted yesterday afternoon to the care of the hospitalist team. Payer: confirmed: Medicare. Patient came to hospital with symptoms of heart fluttering. Patient carries diagnosis of A-Fib. Patient sleeping, but received some history from patient's nurse. Patient used to reside in [place], but moved here, for daughter lives here as well. Patient resides with daughter. P: DCP to continue to follow closely, and offer any resources that patient may need before discharge. Shala Morejon RN/Reconstructive Surgeon
[2018-06-26] MEDS: AMIODARONE 360 MG/200 ML PIGGYBACK 16.7 MG IV (10:11)
[2018-06-26] MEDS: ONDANSETRON 4 MG/2 ML INJ IV ×3 (10:28→18:52)
--- NOTE | 2018-06-26 10:46 | PC.NURSE ---
Addendum entered by Ozzie Rosen R.N. 06/26/18 14:10: Called to Dr. Cramer. Reported elevated BP, Pt c/o nausea and back pain, poor PO intake, held noon PO K+. Dr. Cramer states he will enter orders. Original Note: HTN noted. Pt resting. Awoke pt to adjust BP cuff. Pt c/o mild nausea. Zofran given. Remains hypertensive with HR 90s-110s Afib RVR. Called to Dr. Cramer. Instructs to recheck BP in one hour as HTN may be r/t nausea and notify if needed. Will monitor.
--- NOTE | 2018-06-26 14:12 | CM.DPC ---
DCP Cont: Called and spoke to daughter, Charity. Has same number as patient, . Patient lives with her, and they both came from [place]. Daughter is an RN. Stated that her mom has been independent, has her own room in their home. Stated that her A-Fib is what has slowed her down. Discussed goals. Stated that she does not want her mom to go to skilled, but is ok with home health. She is aware that the nurse could check her INRs at home. P: DCP to continue to follow. Will touch base with daughter, and will look into home health for discharge. Shala Morejon RN/Farm Assistant
[2018-06-26] MEDS: OXYCODONE IR 5 MG TABLET PO ×2 (14:51→18:56)
[2018-06-26] MEDS: AMLODIPINE 5 MG TABLET PO (14:52)
[2018-06-26] MEDS: WARFARIN 2 MG TABLET 4 MG PO (17:18)
[2018-06-26] MEDS: ENOXAPARIN 40 MG/0.4 ML SYRINGE SUBCUT (18:51)
[2018-06-26] MEDS: GABAPENTIN 300 MG CAPSULE PO (20:55)
--- NOTE | 2018-06-26 22:01 | PC.NURSE ---
Addendum entered by Bethany Eric R.N. 06/26/18 22:24: 2220 - Pt amiodarone gtt bag complete. D/c'd per verbal order from Dr. Cramer and as per progress note. Pt hr in the 70's. Remains a-fib. BP 124/80. Pt reports feeling well and currently denies nausea. Monitor. Original Note: Pt with intermittent nausea this evening. Taking sips of clears, however declines food. Pt has gagging and spitting like action however no measurable emesis. Able to take PO HS meds without difficulty. Hr remain tachycardic in the 110's. Hypertension 181/86. Denies headache. Reports feeling weak and tired. Able to get up to [facility] SBA. Bed alarm on at rest. Amiodarone gtt nearly complete. Monitor.
[2018-06-27] VITALS (15 sets, daily range): BP systolic 110–138; BP diastolic 40–99; PULSE 73–85; RESP 10–20; TEMP 35.8–37.2; O2SAT 95–99; BMI 17.8
[2018-06-27] MEDS: OXYCODONE IR 5 MG TABLET PO ×4 (00:22→19:11)
[2018-06-27 05:36] LABS: INR 3.1 (0.9-1.3); Prothrombin Time 34.5 SECONDS (10.1-12.7)
[2018-06-27 05:42] LABS: Add Manual Diff / Slide Review NO; BUN Creatinine Ratio 26.3 (6-22); Basophils Percent Auto 0.2 % (0-2); Blood Urea Nitrogen 21 mg/dL (7-17); Calcium 8.5 mg/dL (8.4-10.2); Carbon Dioxide 24 mmol/L (22-32); Chloride 105 mmol/L (98-107); Eosinophils Percent Auto 0.7 % (2-4); Estimated Glomerular Filt Rate > 60.0 mL/min (>60); Glucose 91 mg/dL (80-110); HEMOLYSIS < 15 (0-50); Hematocrit 35.6 % (36-46); Lymphocytes Percent Auto 29.8 % (25-40); Mean Corpuscular HGB Conc 33.8 % (30-36); Mean Corpuscular Hemoglobin 31.2 PG (26-34); Mean Corpuscular Volume 92.3 fL (80-100); Monocytes Percent Auto 8.2 % (3-14); Neutrophils Absolute Auto 6500 /uL (3000-5900); Neutrophils Percent Auto 61.1 % (50-75); Platelet Count 275 X10^3/uL (150-400); Potassium 3.3 mmol/L (3.4-5.1); Red Blood Cell Count 3.86 X10^6/uL (4.0-5.2); Red Cell Distribution Width 14.5 % (11.6-14.8); Sodium 136 mmol/L (137-145); White Blood Cell Count 10.6 X10^3/uL (4.5-11.0)
[2018-06-27] MEDS: AMIODARONE 200 MG TABLET PO ×2 (08:54→21:13)
[2018-06-27] MEDS: AMLODIPINE 5 MG TABLET PO (08:56)
[2018-06-27] MEDS: PARoxetine 10 MG TABLET PO (08:56)
[2018-06-27] MEDS: SODIUM CHLORIDE 0.9% FLUSH 10 ML IV ×2 (08:57→21:30)
[2018-06-27] MEDS: METOPROLOL ER 50 MG TABLET PO ×2 (08:57→21:09)
[2018-06-27] MEDS: POTASSIUM CHLORIDE 20 MEQ TAB PO ×2 (09:07→17:26)
[2018-06-27] MEDS: OXYCODONE/ACETAMINOPHEN 5/325 TABLET 2 TAB PO ×2 (09:09→21:12)
--- NOTE | 2018-06-27 10:07 | PC.NURSE ---
PT TAKING PO RX FOR CHRONIC PAIN- PT DECLINES TO GET UP FROM BED FOR AM MEAL- VERY MINIMAL MOVEMENT INDEPENDENTLY- TAKES VERY LITTLE AMOUNTS OF PO, REMAINS AFIB CVR
--- NOTE | 2018-06-27 11:30 | PM.PN.1 ---
Subjective Date Patient Seen: 06/27/18 Time Patient Seen: 11:30 Interval history: Less nausea feeling better Exam Vital Signs (past 8 hours): - 06/27/18 04:11 06/27/18 05:15 06/27/18 06:22 Temperature 96.4 F L Pulse Rate 78 73 Respiratory Rate 10 L 14 Blood Pressure 124/80 128/80 Pulse Oximetry 97 98 96 06/27/18 07:00 06/27/18 07:27 Temperature 98.4 F Pulse Rate 75 Respiratory Rate 12 Blood Pressure 120/73 Pulse Oximetry 95 98 Oxygen Delivery Method Room Air Oxygen Flow Rate 0 Narrative Exam Narrative: Resting comfortably in bed HEENT exam unremarkable Neck is supple Heart irregular Lungs clear Abdomen soft nontender Lower extremities no edema Skin warm and dry Neuro exam unremarkable Objective Labs Result Diagrams: 06/27/18 05:10 06/27/18 05:10 Labs: Laboratory Results - last 24 hr 06/27/18 06/27/18 06/27/18 05:10 05:10 05:10 WBC 10.6 RBC 3.86 L Hgb 12.0 Hct 35.6 L MCV 92.3 MCH 31.2 MCHC 33.8 RDW 14.5 Plt Count 275 Neut % (Auto) 61.1 Lymph % (Auto) 29.8 [place] % (Auto) 8.2 Eos % (Auto) 0.7 L Baso % (Auto) 0.2 Neut # (Auto) 6500 H PT 34.5 H D INR 3.1 H Sodium 136 L Potassium 3.3 L Chloride 105 Carbon Dioxide 24 BUN 21 H Creatinine 0.80 Estimated GFR > 60.0 BUN/Creatinine Ratio 26.3 H Glucose 91 Calcium 8.5 Magnesium 2.0 Assessment & Plan Plan: Assessment/Plan Narrative: 1. Paroxysmal atrial fibrillation with RVR: Patient with much improved symptoms since on IV amiodarone drip with rate control. She remains in atrial fibrillation. She presented with severe symptoms associated with tachycardia, unsuccessful rate control with full-doses Cardizem bolus and drip in ER, and admitted to ICU. She has completed the amiodarone drip and now is on oral amiodarone 200 b.i.d. She moved here in April from [facility] and has not established yet with local cardiology. She has apparently had multiple hospitalizations and cardioversions while living in [place] and also had a stroke in January of this year. If she remains stable possible discharge home on Sunday 2. Anticoagulation status: This bumped up to 3.1. Plan to hold Coumadin today Recheck INR in the morning 3. Electrolyte deficiency: Low K. Low-normal magnesium. Magnesium normal but her potassium still low plan to place increase her potassium orally 4. Intractable nausea and vomiting due to atrial fibrillation: Resolved. Hep-Lock IV, Zofran 4 mg IV q.4 hours as needed. 5. Chronic back pain with opioid dependency: Continue routine Percocet twice daily. 5. Code status: Patient wishes full code 6. Leukocytosis, presumed acute due to nausea and vomiting: No fever or symptoms of obvious infection. Plan to recheck on Sunday 7. Acute nonfasting hyperglycemia related to acute illness: Resolved, glucose down to normal. Quality VTE Deep Vein Thrombosis/Pulmonary Embolism Present on Admission: No
--- NOTE | 2018-06-27 11:36 | P.PN_ITS ---
Subjective Date Patient Seen: 06/27/18 Time Patient Seen: 11:30 Interval history: Less nausea feeling better Exam Vital Signs (past 8 hours): - 06/27/18 04:11 06/27/18 05:15 06/27/18 06:22 Temperature 96.4 F L Pulse Rate 78 73 Respiratory Rate 10 L 14 Blood Pressure 124/80 128/80 Pulse Oximetry 97 98 96 06/27/18 07:00 06/27/18 07:27 Temperature 98.4 F Pulse Rate 75 Respiratory Rate 12 Blood Pressure 120/73 Pulse Oximetry 95 98 Oxygen Delivery Method Room Air Oxygen Flow Rate 0 Narrative Exam Narrative: Resting comfortably in bed HEENT exam unremarkable Neck is supple Heart irregular Lungs clear Abdomen soft nontender Lower extremities no edema Skin warm and dry Neuro exam unremarkable Objective Labs Result Diagrams: 06/27/18 05:10 06/27/18 05:10 Labs: Laboratory Results - last 24 hr 06/27/18 06/27/18 06/27/18 05:10 05:10 05:10 WBC 10.6 RBC 3.86 L Hgb 12.0 Hct 35.6 L MCV 92.3 MCH 31.2 MCHC 33.8 RDW 14.5 Plt Count 275 Neut % (Auto) 61.1 Lymph % (Auto) 29.8 [place] % (Auto) 8.2 Eos % (Auto) 0.7 L Baso % (Auto) 0.2 Neut # (Auto) 6500 H PT 34.5 H D INR 3.1 H Sodium 136 L Potassium 3.3 L Chloride 105 Carbon Dioxide 24 BUN 21 H Creatinine 0.80 Estimated GFR > 60.0 BUN/Creatinine Ratio 26.3 H Glucose 91 Calcium 8.5 Magnesium 2.0 Assessment & Plan Plan: Assessment/Plan Narrative: 1. Paroxysmal atrial fibrillation with RVR: Patient with much improved symptoms since on IV amiodarone drip with rate control. She remains in atrial fibrillation. She presented with severe symptoms associated with tachycardia, unsuccessful rate control with full-doses Cardizem bolus and drip in ER, and admitted to ICU. She has completed the amiodarone drip and now is on oral amiodarone 200 b.i.d. She moved here in April from [facility] and has not established yet with local cardiology. She has apparently had multiple hospitalizations and cardioversions while living in [place] and also had a stroke in January of this year. If she remains stable possible discharge home on Sunday 2. Anticoagulation status: This bumped up to 3.1. Plan to hold Coumadin today Recheck INR in the morning 3. Electrolyte deficiency: Low K. Low-normal magnesium. Magnesium normal but her potassium still low plan to place increase her potassium orally 4. Intractable nausea and vomiting due to atrial fibrillation: Resolved. Hep- Lock IV, Zofran 4 mg IV q.4 hours as needed. 5. Chronic back pain with opioid dependency: Continue routine Percocet twice daily. 5. Code status: Patient wishes full code 6. Leukocytosis, presumed acute due to nausea and vomiting: No fever or symptoms of obvious infection. Plan to recheck on Sunday 7. Acute nonfasting hyperglycemia related to acute illness: Resolved, glucose down to normal. Quality VTE Deep Vein Thrombosis/Pulmonary Embolism Present on Admission: No
--- NOTE | 2018-06-27 15:59 | PT.IIE ---
Current Diagnoses Paroxysmal atrial fibrillation (06/25/18) Surgical History (Last Reviewed 06/25/18 @ 19:19 by Dank Sanders DO) Hx of cholecystectomy (Acute) Medical History (Last Reviewed 06/25/18 @ 19:19 by Dank Sanders DO) Atrial fibrillation with RVR (Acute) Chronic anticoagulation (Acute) History of stroke (Acute) Expressive aphasia (Acute) Chronic back pain (Acute) CVA (cerebrovascular accident) (Acute) Dysarthria (Acute) Smoker (Acute) Physical Therapy Inpatient Evaluation/Re-Eval M1 PT/OT-IP Prior Functional Status Start: 06/27/18 15:59 Freq: NEEDED Status: Active Protocol: Document 06/27/18 15:59 DLM (Rec: 06/27/18 16:17 [facility] [id number]) Medical Review Prior Functional Status Medical History Reviewed Yes Diet/Fluid Consistency Regular Communication mild expressive aphasia since stroke 01/2018 Mobility and Gait Independent without device, often reaches out to guzman or furniture to steady herself, no falls at home, uses grocery cart in the store, able to do light errands in community with her family Activities of Daily Living and IADL's Independent in ADL's, has been managing her own meds Prior Functional Level (Other details) moved from [place] to live with her Daughter Social History Household Members family children Living Arrangements House Number of Floors (Floors) One Floor Number of Stairs To Enter/Railing? none reported Employment Status Retired Additional Social History Comment her Daughter is an RN, Son-in- law is also involved in her care as needed M2 PT-IP Current Condition Start: 06/27/18 15:59 Freq: NEEDED Status: Active Protocol: Document 06/27/18 15:59 DLM (Rec: 06/27/18 16:17 [facility] [id number]) Physical Therapy Current Condition Current Condition Evaluation Date 06/27/18 Treatment Diagnosis weakness Onset Date 06/25/18 Precautions Other Precautions cardiac precautions M3 PT-IP Subjective Start: 06/27/18 15:59 Freq: NEEDED Status: Active Protocol: Document 06/27/18 15:59 DLM (Rec: 06/27/18 16:17 DL [id number]) Subjective Physical Therapy Visit Type Type Initial Evaluation Visit Start Time 15:29 Visit Stop Time 15:59 Total Visit Minutes 30 Number of EMPLOYMENT PROGRAM REPRESENTATIVE Visits 0 Physical Therapy Visit Comments Patient Comments She is feeling better, no longer nauseated, no light- headedness Patient Goals go home with her Daughter Therapy Pain Assessment Pain When Pain Assessed At Rest Pain Present Pain Present Pain Reported Location Back Intensity 3 Scale Used Numeric (1 - 10) Description Aching M4 PT-IP Mobility and Gait Start: 06/27/18 15:59 Freq: NEEDED Status: Active Protocol: Document 06/27/18 15:59 [facility] (Rec: 06/27/18 16:17 [facility] [id number]) PT-Bed Mobility Assessment Rolling Type of Rolling Bilateral Level of Assist Independent Supine to Sit Supine to Sit Independent Sit to Supine Sit to Supine Independent Scooting Scooting to Edge of Bed Independent PT-Transfer Assessment Sit to and From Stand Sit to and from Stand Independent Equipment Transfer Assistive Device None Transfers Transfer Destination Chair Transfer Technique Stand Step Pivot Transfer Ability Level of Assist Independent Comments Mobility Comments helped her with lines and cleared her path Gait Assessment Gait Gait Assistance Required: Standby Assistance Distance (Feet) 160 Assistive Devices Assistive Device None Factors Limiting Gait Function Factors Limiting Gait Function Decreased Activity Tolerance Comments Gait Comments Path is not straight, wanders laterally, she can independently recover her balance, she often reaches out for furniture or guzman, pt does not want to use a cane. She reports she had a cane in the past but never used it and does not know where it is now . PT-Balance Assessment Sitting Balance and Reactions Static Sitting Balance Ability Normal Dynamic Sitting Balance Ability Normal Standing Balance and Reactions Static Standing Balance Ability Good Dynamic Standing Balance Ability Fair Device Used no device M5 PT-IP Objective Assessments Start: 06/27/18 15:59 Freq: NEEDED Status: Active Protocol: Document 06/27/18 15:59 [facility] (Rec: 06/27/18 16:17 [facility] [id number]) Orientation Orientation/Cognition Level of Alertness Alert Orientation Name Age Birthday Month Date Year Day of Week Place Situation Language Function Ability Expressive Aphagia Hard of Hearing Safety Awareness Understands Safety Issues Memory Description No Deficits Noted Comments very mild expressive issues Gross Range of Motion Upper Extremity ROM Assessment Within Functional Limits Lower Extremity ROM Assessment Within Functional Limits Strength Upper Extremity Strength Assessment Within Functional Limits Lower Extremity Strength Hip flexion 4+/5 Knee 5/5 Ankle DF 5/5 Coordination Assessment Gross Coordination Gross Coordination Impaired Assessment Coordination Comments tremors right hand worse during manual muscle testing, mild to no tremor at rest Sensation Assessment Sensation Gross Sensation WNL Muscle Tone Muscle Tone WNL Yes M6 PT-IP Treatment Start: 06/27/18 15:59 Freq: NEEDED Status: Active Protocol: Document 06/27/18 15:59 DLM (Rec: 06/27/18 16:17 DLM [id number]) Physical Therapy Treatment Education Education Provided Safety M7 PT-IP Assessment and Plan Start: 06/27/18 15:59 Freq: NEEDED Status: Active Protocol: Document 06/27/18 15:59 DLM (Rec: 06/27/18 16:17 DLM [id number]) PT Summary Assessment and Plan Potential Rehabilitation Potential Good Status of Condition at Evaluation Evolving Summary Impairments Activity Tolerance Progress Towards Goals Safe For Discharge Assessment Summary She appears to be close to her baseline functionally. She appears to have decreased activity tolerance due to recent medical issues. She appears safe to discharge home home with family support. She tolerated gait in the chambers well with fatigue. Will defer further gait to nursing supervision while hospitalized . No skilled PT needs identified at this time. Recommend she continue to gradually increase her activity to improve her endurance. Frequency of Treatment Frequency Of Treatment Discharge Recommendations To Nursing Amount of Assist Needed Standby Assistance Discharge Recommendations PT Discharge Recommendations Home with Assistance
[2018-06-27] MEDS: GABAPENTIN 300 MG CAPSULE PO (21:14)
[2018-06-27] MEDS: ONDANSETRON 4 MG/2 ML INJ IV (21:30)
--- NOTE | 2018-06-27 22:02 | PC.NURSE ---
Student Nurse Approximately 10 minutes after pt took bedtime meds she complained of nausea. She refused anny sherita and a snack. RN administered IV antiemetic. Pt still reports pain at a 6 or 7 after receiving pain meds at 2100. Repositioning and floating her hips with pillows were offered, but she refused. She stated that The pain is skeletal, not muscular. Moving around won't help.
[2018-06-28] MEDS: OXYCODONE IR 5 MG TABLET PO ×2 (00:03→04:03)
[2018-06-28 00:05] VITALS: BP 110/82; PULSE 85; RESP 20; TEMP 37.1; O2SAT 92
[2018-06-28 00:45] VITALS: O2SAT 95
[2018-06-28 04:05] VITALS: BP 139/96; PULSE 89; RESP 16; TEMP 36.6; O2SAT 100
--- NOTE | 2018-06-28 04:05 | PC.NURSE ---
Pt. transferred from ICU to M/S for afib which is now controlled in the 60's-70's. Pt. is alert and oriented who c/o generalized weakness as well as back pain which is chronic. Pt. transferred to the floor via w/c and able to transfer from w/c to bed independently. Pt. oriented to rm, bed control, and call light with personal belongings on the bedside table within reach. Pt. medicated with Percolone for back pain.
[2018-06-28 04:15] VITALS: O2SAT 100
[2018-06-28 06:54] LABS: Add Manual Diff / Slide Review NO; Basophils Percent Auto 0.7 % (0-2); Eosinophils Percent Auto 1.5 % (2-4); Hematocrit 37.7 % (36-46); Hemoglobin 12.7 g/dL (12.0-16.0); Lymphocytes Percent Auto 27.8 % (25-40); Mean Corpuscular HGB Conc 33.6 % (30-36); Mean Corpuscular Hemoglobin 31.1 PG (26-34); Mean Corpuscular Volume 92.5 fL (80-100); Monocytes Percent Auto 8.1 % (3-14); Neutrophils Absolute Auto 5900 /uL (3000-5900); Neutrophils Percent Auto 61.9 % (50-75); Platelet Count 272 X10^3/uL (150-400); Red Blood Cell Count 4.07 X10^6/uL (4.0-5.2); Red Cell Distribution Width 14.3 % (11.6-14.8); White Blood Cell Count 9.5 X10^3/uL (4.5-11.0)
[2018-06-28 06:57] LABS: INR 2.8 (0.9-1.3); Prothrombin Time 30.3 SECONDS (10.1-12.7)
[2018-06-28 07:01] LABS: Alanine Aminotransferase 25 IU/L (9-52); Albumin 3.4 g/dL (3.5-5.0); Albumin Globulin Ratio 1.3 (1.0-2.8); Alkaline Phosphatase 50 U/L (38-126); Aspartate Aminotransferase 19 IU/L (14-36); BUN Creatinine Ratio 31.3 (6-22); Bilirubin Total 0.6 mg/dL (0.2-1.3); Blood Urea Nitrogen 25 mg/dL (7-17); Calcium 8.6 mg/dL (8.4-10.2); Carbon Dioxide 21 mmol/L (22-32); Chloride 106 mmol/L (98-107); Estimated Glomerular Filt Rate > 60.0 mL/min (>60); Globulin 2.7 g/dL (1.7-4.1); Glucose 84 mg/dL (80-110); HEMOLYSIS < 15 (0-50); Magnesium 1.8 mg/dL (1.6-2.3); Potassium 3.8 mmol/L (3.4-5.1); Sodium 137 mmol/L (137-145); Total Protein 6.1 g/dL (6.3-8.2)
[2018-06-28 08:00] VITALS: BP 123/70; PULSE 80; RESP 15; TEMP 36.8; O2SAT 99
[2018-06-28] MEDS: OXYCODONE/ACETAMINOPHEN 5/325 TABLET 2 TAB PO (08:37)
[2018-06-28] MEDS: METOPROLOL ER 50 MG TABLET PO (08:38)
[2018-06-28] MEDS: AMIODARONE 200 MG TABLET PO (08:38)
[2018-06-28] MEDS: SODIUM CHLORIDE 0.9% FLUSH 10 ML IV (08:38)
[2018-06-28] MEDS: PARoxetine 10 MG TABLET PO (08:38)
[2018-06-28] MEDS: AMLODIPINE 5 MG TABLET PO (08:38)
[2018-06-28] MEDS: POTASSIUM CHLORIDE 20 MEQ TAB PO (08:40)
--- NOTE | 2018-06-28 10:51 | P.DS_ITS ---
History of Present Illness Date Patient Seen: 06/28/18 Time Patient Seen: 10:49 Chief complaint: AFIB,SICK Narrative: Patient is a 77-year-old female presented to emergency department due to complaints heart fluttering, nausea and vomiting. She has a history of paroxysmal atrial fibrillation for which she is on amiodarone, metoprolol and warfarin. She recently moved to the area and previously was living in [facility]. She has history of stroke back in January 2018 associated with atrial fibrillation and with resultant mild expressive aphasia. She has had 2 previous cardioversions. She denies history of coronary artery disease or CHF. Current symptoms began 2 days ago with sensation of fluttering in her chest, and recurrent nausea and vomiting. The nausea and vomiting has historically been present when she is in atrial fibrillation. She states she has missed a few medication doses recently. She has had fluctuations in INR with recent adjustment of her warfarin. Most recently INR was around 6.0 and PCP lowered her warfarin dose about 5 days ago. On initial ER evaluation, patient was noted to be very uncomfortable, tachypneic , hypertensive with ventricular rate in the 140s. She was given IV diltiazem and started on IV diltiazem drip titrated to 25 milligrams/hour but without improvement in her rate control. She had some more vomiting on way to the ICU. Also complaining of some chronic back pain for which she takes Percocet at home. Discharge Providers Date of admission: 06/25/18 14:36 Consults: 06/25/18 16:20 Consult to Dietitian, Adult Routine Comment: Reason For Exam: assessed at high risk 06/27/18 11:30 Consult to Physical Therapy Evaluate & Treat Comment: weak Physician Instructions: Evaluate and Treat Discharge provider: See Alicea MD Discharge Date: 06/28/18 Summary Discharge Diagnosis: One. Paroxysmal atrial fibrillation with rapid ventricular response 2. Chronic anticoagulation for AFib 3. Hypokalemia resolved 4. Intractable nausea and vomiting resolved 5. Chronic back pain with opioid dependency 6. Leukocytosis secondary to the acute nausea and vomiting resolved Hospital Course: Patient admitted to the hospital with AFib in rapid ventricular response hypokalemia and persistent nausea and vomiting. The nausea and vomiting improved with hydration. She had a very difficult time controlling the rate we ended up putting her on amiodarone infusion and that coupled with the beta-elizabeth finally got the rate back under control. We have increased her amiodarone from 200 once a day to 200 twice a day. Also have placed her on potassium supplement. Her INR was 2.8 this should be checked again on Sunday as we have changed the amiodarone. Nausea and vomiting have improved but she does have problems swallowing all her pills. The patient will follow up with her primary care physician Dr. melendrez next week Status at Discharge Cognitive/behavioral status at discharge: At baseline Functional status at discharge: independent ambulation Overall status at discharge: patient is back to baseline Time Spent with Patient Greater than 30 minutes Exam Vital Signs (past 8 hours): - 06/28/18 04:05 06/28/18 04:15 06/28/18 08:00 Temperature 97.8 F 98.2 F Pulse Rate 89 80 Respiratory Rate 16 15 Blood Pressure 139/96 H 123/70 Pulse Oximetry 100 100 99 Oxygen Delivery Method Room Air Oxygen Flow Rate 0 Narrative Exam Narrative: She is resting comfortably no acute distress Heart irregular Lungs clear Abdomen soft nontender Neuro exam unremarkable Objective Labs Result Diagrams: 06/28/18 06:40 06/28/18 06:40 Labs: Laboratory Results - last 24 hr 06/28/18 06/28/18 06/28/18 06:40 06:40 06:40 WBC 9.5 RBC 4.07 Hgb 12.7 Hct 37.7 MCV 92.5 MCH 31.1 MCHC 33.6 RDW 14.3 Plt Count 272 Neut % (Auto) 61.9 Lymph % (Auto) 27.8 [place] % (Auto) 8.1 Eos % (Auto) 1.5 L Baso % (Auto) 0.7 Neut # (Auto) 5900 PT 30.3 H INR 2.8 H Sodium 137 Potassium 3.8 Chloride 106 Carbon Dioxide 21 L BUN 25 H Creatinine 0.80 Estimated GFR > 60.0 BUN/Creatinine Ratio 31.3 H Glucose 84 Calcium 8.6 Magnesium 1.8 Total Bilirubin 0.6 AST 19 ALT 25 Alkaline Phosphatase 50 Total Protein 6.1 L Albumin 3.4 L Globulin 2.7 Albumin/Globulin Ratio 1.3 Discharge Plan Discharge Plan Patient Disposition: Home Discharge Med Rec/Prescriptions Prescriptions: New amiodarone 200 mg Tablet 200 mg PO BID Qty: 60 RF: 0 potassium chloride [Klor-Con M20] 20 mEq Tablet,Er Particles/Crystals 20 meq PO DAILY Qty: 30 RF: 0 Continue paroxetine HCl 10 mg tablet 1 tab PO DAILY RF: 0 warfarin 4 mg tablet 1 tab PO QPM RF: 0 oxycodone-acetaminophen 10-325 mg tablet 1 tab PO BID RF: 0 gabapentin 300 mg capsule 1 cap PO BEDTIME RF: 0 ondansetron 4 mg tablet,disintegrating 1 tab PO Q4-6H PRN (Reason: Nausea) RF: 0 metoprolol succinate 50 mg tablet extended release 24 hr 1 tab PO BID RF: 0 Discontinued amiodarone 200 mg tablet 1 tab PO DAILY RF: 0 Follow up/Referrals: Bob Andrade MD [Non-Staff] - 3-5 Days (*appt:07/02 @ noon with dr andrade [phone] please check @ 11:45) Provider Discharge Instructions Other treatments: Protime INR needed on SundayJul 01 Visit Report/Discharge Packet Visit Report Forms: Stroke Signs & Symptoms Discharge Data Attending Provider: Dickson Cramer Admit Date/Time: 06/25/18 14:36 Quality VTE Deep Vein Thrombosis/Pulmonary Embolism Present on Admission: No
== END 2018-06-28 12:20 | disposition home or self-care (01) | DRG 309 ==
LOC: ED 13:58 → AC 14:37 → ICU 16:14 → AC 06-28 10:47 → ICU 05-05 14:06
PROVIDERS: Internal Medicine; Admitting Provider Internal Medicine; Emergency Provider Emergency Medicine; Visit Provider Internal Medicine
DX: I48.0 Paroxysmal atrial fibrillation (principal); F11.20 Opioid dependence, uncomplicated; E44.0 Moderate protein-calorie malnutrition; Z68.1 Body mass index [BMI] 19.9 or less, adult; Z79.01 Long term (current) use of anticoagulants; R11.2 Nausea with vomiting, unspecified; M54.9 Dorsalgia, unspecified; G89.29 Other chronic pain; I69.320 Aphasia following cerebral infarction; E87.6 Hypokalemia; R73.9 Hyperglycemia, unspecified
CPT/HCPCS: 36415; 36591; 36592; 71045; 80048; 80053; 80076; 83735; 83880; 84443; 84484; 85025; 85610; 87797; 93005; 93306; 96365; 96366; 96375; 96376; 97162; 99285; J0282; J1642; J1650; J2405; J3480

== ENCOUNTER 2018-09-29 10:03 | Inpatient (IN) | payer MEDICARE, SELFPAY ==
[2018-06-25 16:09] VITALS: BMI 19.2
[2018-09-29] VITALS (8 sets, daily range): BP systolic 85–132; BP diastolic 52–88; PULSE 81–92; RESP 13–27; TEMP 35.4–36.4; O2SAT 95–100; BMI 14.8
--- NOTE | 2018-09-29 11:01 | ED_ITS ---
HPI - General Adult General Chief complaint: Abdominal Pain Stated complaint: Abd pain, N/V Time Seen by Provider: 09/29/18 10:48 Source: patient and family Mode of arrival: EMS Limitations: no limitations History of Present Illness HPI narrative: Patient is a 77-year-old female who lives with family here for evaluation of several days of nausea and vomiting. No abdominal pain. No diarrhea. She states that for the past several years she has had episodes where she gets spells of nausea and vomiting. She does have Reglan and Zofran at home. She states that she currently is in 1 of these spells. States it has been going on for the past couple days. No fevers. No change in her diet. She has been taking her Zofran and Reglan without any relief of her symptoms. She states that just about anything she drinks or eats she will throw up shortly afterwards. She has been able to keep her other medications down however she states has been very difficult to do this. She states she feels dehydrated is very weak Related Data Home Medications Medication Instructions Recorded Confirmed gabapentin 1 cap PO BEDTIME 06/25/18 09/29/18 metoprolol succinate 1 tab PO BID 06/25/18 09/29/18 ondansetron 1 tab PO Q4-6H PRN 06/25/18 09/29/18 oxycodone-acetaminophen 1 tab PO BID 06/25/18 09/29/18 paroxetine HCl 1 tab PO DAILY 06/25/18 09/29/18 warfarin 2 mg PO QPM 06/25/18 09/29/18 amiodarone 200 mg PO DAILY 09/29/18 09/29/18 metoclopramide HCl [Reglan] 5 mg PO DIRECTED PRN 09/29/18 09/29/18 Allergies Allergy/AdvReac Type Severity Reaction Status Date / Time Latex, Natural Rubber Allergy Mild Hives Verified 06/25/18 12:33 Review of Systems Constitutional Denies fever(s), Denies headache(s) and Reports weakness ENT Ears, Nose, Mouth, and Throat: Denies vertigo, Denies dizziness, Denies headache (s) and Denies disequilibrium Cardiovascular Denies chest pain, Denies syncope, Denies palpitations and Denies dyspnea Respiratory Denies cough and Denies dyspnea Gastrointestinal Gastrointestinal: Denies abdominal pain, Denies change in bowel habits, Denies constipation, Denies diarrhea, Reports nausea and Reports vomiting Genitourinary Denies dysuria Musculoskeletal Denies back pain, Denies myalgias and Denies arthralgias Integumentary/Breasts Denies lesions and Denies rash Neurologic Denies behavioral changes, Denies vertigo, Denies dizziness, Denies syncope, Denies headache(s), Denies disequilibrium and Reports weakness Psychiatric Denies behavioral changes Endocrine Denies palpitations Hematologic/Lymphatic Comments: Currently on Coumadin Allergic/Immunologic Denies urticaria [facility] Social History household members: family and children Smoking Status: Former smoker Exam Initial Vital Signs Initial Vital Signs: Vital Signs Temperature 95.8 F L 09/29/18 10:11 Pulse Rate 81 09/29/18 10:11 Respiratory Rate 26 H 09/29/18 10:11 Blood Pressure 113/82 09/29/18 10:11 Pulse Oximetry 100 09/29/18 10:11 Const General: cooperative, well developed, well groomed, No acute distress and ill appearing Orientation: alert, awake and oriented x3 HENMT Head: normal to inspection and normocephalic Mouth: No moist mucous membranes Resp Effort & Inspection: normal respiratory effort Auscultation: clear to auscultation bilaterally Cardio Rate: regular rate Pulses: radial pulses present GI Inspection: non-distended Palpation: soft, No firm, No guarding, No rigid and No tender Back/Spine/Pelvis Back: No CVA tenderness Skin Lesions: no lesions Rashes: no rashes Neuro General: alert, awake and oriented x3 Cognition: normal cognition Speech: speech normal Motor: muscle tone normal throughout Extrem General: normal to inspection and capillary refill normal Psych Appearance: grossly normal and well kempt Course Orders Ordered: ED Orders 09/29/18 10:49 Complete Blood Count AUTO DIFF Stat Comprehensive Metabolic Panel Stat Magnesium Stat Partial Thromboplastin Time Stat Phosphorous Stat Prothrombin Time INR Stat 09/29/18 10:50 Troponin I Stat 09/29/18 11:40 Lipase Stat Procalcitonin Stat 09/29/18 12:16 CT abdomen pelvis w con Stat 09/29/18 16:03 Consult to Physician Routine 09/29/18 16:38 Consult to Dietitian, Adult Routine Sodium Chloride (Normal Saline 0.9%) 1,000 mls @ 125 mls/hr IV CONT TEVIN Last Admin: 09/29/18 17:31 Dose: 125 mls/hr Discontinued Medications Sodium Chloride (Normal Saline 0.9%) 1,000 mls @ 1,000 mls/hr IV BOLUS ONE Stop: 09/29/18 11:48 Last Infusion: 09/29/18 13:45 Dose: 0 mls/hr Admin: 09/29/18 11:25 Dose: 1,000 mls/hr Sodium Chloride (Normal Saline 0.9%) 1,000 mls @ 125 mls/hr IV CONT TEVIN Last Admin: 09/29/18 13:46 Dose: 125 mls/hr Piperacillin/Tazobactam/Dextrose (Zosyn) 3.375 gm in 50 mls @ 100 mls/hr IV NOW ONE Stop: 09/29/18 13:44 Last Infusion: 09/29/18 14:29 Dose: 0 mls/hr Admin: 09/29/18 13:45 Dose: 100 mls/hr Vital Signs - 8 hr 09/29/18 11:00 09/29/18 12:00 09/29/18 13:00 Temperature Pulse Rate 92 H 84 84 Respiratory Rate 19 27 H 19 Blood Pressure Blood Pressure [Left Arm] 85/52 L 127/84 122/86 Pulse Oximetry 100 99 95 09/29/18 14:00 09/29/18 16:20 Temperature 97.5 F L Pulse Rate 82 86 Respiratory Rate 13 18 Blood Pressure 122/83 Blood Pressure [Left Arm] 100/61 Pulse Oximetry 95 96 Medical Decision Making Medical Records Medical records reviewed: Yes I reviewed the patient's medical records. Lab Data Lab results reviewed: Yes I reviewed the patient's lab results. Result diagrams: 09/29/18 10:49 09/29/18 10:49 Lab Results 09/29/18 09/29/18 09/29/18 Range/Units 10:49 10:49 10:49 WBC 19.2 H (4.5-11.0) X10^3/uL RBC 5.44 H (4.0-5.2) X10^6/uL Hgb 16.9 H (12.0-16.0) g/dL Hct 50.6 H (36-46) % MCV 93.1 (80-100) fL MCH 31.0 (26-34) PG MCHC 33.3 (30-36) % RDW 15.0 H (11.6-14.8) % Plt Count 511 H (150-400) X10^3/uL Neut % (Auto) 81.8 H (50-75) % Lymph % (Auto) 9.3 L (25-40) % Faulk % (Auto) 8.7 (3-14) % Eos % (Auto) 0.0 L (2-4) % Baso % (Auto) 0.2 (0-2) % Neut # (Auto) 51193 H (1365-4240) /uL Lymph # (Auto) 1800 (1974-1152) /uL Faulk # (Auto) 1700 H (0-900) /uL Eos # (Auto) 0 (0-450) /uL Baso # (Auto) 0 (0-100) /uL PT 49.5 H (10.1-12.7) SECONDS INR 4.2 H (0.9-1.3) APTT 46 H (26.4-36.2) SECONDS Sodium 133 L (137-145) mmol/L Potassium 3.6 (3.4-5.1) mmol/L Chloride 94 L (98-107) mmol/L Carbon Dioxide 25 (22-32) mmol/L BUN 62 H (7-17) mg/dL Creatinine 1.20 H (0.52-1.04) mg/dL Estimated GFR 43.6 L (>60) mL/min BUN/Creatinine Ratio 51.7 H (6-22) Glucose 114 H (80-110) mg/dL Calcium 9.6 (8.4-10.2) mg/dL Phosphorus 3.9 (2.8-4.1) mg/dL Magnesium 2.2 (1.6-2.3) mg/dL Total Bilirubin 1.0 (0.2-1.3) mg/dL AST 641 H (14-36) IU/L ALT 1306 H (9-52) IU/L Alkaline Phosphatase 133 H (38-126) U/L Troponin I (0.01-0.034) ng/mL Total Protein 7.6 (6.3-8.2) g/dL Albumin 4.1 (3.5-5.0) g/dL Globulin 3.5 (1.7-4.1) g/dL Albumin/Globulin Ratio 1.2 (1.0-2.8) Lipase (23-300) U/L Procalcitonin (<0.5) ng/mL 09/29/18 09/29/18 09/29/18 Range/Units 10:50 11:40 11:40 WBC (4.5-11.0) X10^3/uL RBC (4.0-5.2) X10^6/uL Hgb (12.0-16.0) g/dL Hct (36-46) % MCV (80-100) fL MCH (26-34) PG MCHC (30-36) % RDW (11.6-14.8) % Plt Count (150-400) X10^3/uL Neut % (Auto) (50-75) % Lymph % (Auto) (25-40) % Faulk % (Auto) (3-14) % Eos % (Auto) (2-4) % Baso % (Auto) (0-2) % Neut # (Auto) (4172-2922) /uL Lymph # (Auto) (9826-6745) /uL Faulk # (Auto) (0-900) /uL Eos # (Auto) (0-450) /uL Baso # (Auto) (0-100) /uL PT (10.1-12.7) SECONDS INR (0.9-1.3) APTT (26.4-36.2) SECONDS Sodium (137-145) mmol/L Potassium (3.4-5.1) mmol/L Chloride (98-107) mmol/L Carbon Dioxide (22-32) mmol/L BUN (7-17) mg/dL Creatinine (0.52-1.04) mg/dL Estimated GFR (>60) mL/min BUN/Creatinine Ratio (6-22) Glucose (80-110) mg/dL Calcium (8.4-10.2) mg/dL Phosphorus (2.8-4.1) mg/dL Magnesium (1.6-2.3) mg/dL Total Bilirubin (0.2-1.3) mg/dL AST (14-36) IU/L ALT (9-52) IU/L Alkaline Phosphatase (38-126) U/L Troponin I 0.022 (0.01-0.034) ng/mL Total Protein (6.3-8.2) g/dL Albumin (3.5-5.0) g/dL Globulin (1.7-4.1) g/dL Albumin/Globulin Ratio (1.0-2.8) Lipase 127 (23-300) U/L Procalcitonin 0.11 (<0.5) ng/mL Imaging Data CT scan - abdomen: Radiologist's impression: PROCEDURE: CT ABDOMEN PELVIS W CON INDICATIONS: Left-sided abdominal pain TECHNIQUE: After the administration of intravenous contrast, 5 mm thick sections acquired from the diaphragm to the symphysis. 5 mm coronal and sagittal reformats were acquired. For radiation dose reduction, the following was used: automated exposure control, adjustment of mA and/or kV according to patient size. COMPARISON: None. FINDINGS: Image quality: Excellent. ABDOMEN: Lung bases: Lung bases are clear. Heart size is normal. Solid organs: Liver is normal in size and enhancement. Gallbladder is not seen as a discrete entity, but surgical clips at the gallbladder fossa are not found.. Biliary system is prominent in caliber at 13 mm at the common hepatic duct and slightly smaller within the pancreatic head area and a pancreatic mass or distal common duct calculus is not found.. Pancreas enhances normally. Spleen is normal in size and enhancement. No adrenal nodules. Kidneys demonstrate normal size and enhancement, without hydronephrosis. Peritoneum and bowel: Bowel loops demonstrate normal wall thickness and caliber. No free fluid or air. Nodes and vessels: No retroperitoneal or mesenteric adenopathy by size criteria. Aorta and inferior vena cava are normal in size. Miscellaneous: No ventral hernias. PELVIS: Genitourinary: Bladder wall thickness is normal. Miscellaneous: No inguinal hernias or adenopathy. Bones: No suspicious bony lesions. No vertebral body compression fractures. IMPRESSION: A distal common bile duct calculus is not seen. There is a 13 mm caliber of the common bile duct but a gallbladder is not seen and metallic surgical clips are not identified. This may reflect post-cholecystectomy change. Please correlate with the patient for whether the gallbladder has been resected. Correlation with liver function tests likely would be warranted if the gallbladder remains in place but is contracted in a position that is not visible by CT scanning. Convex leftward scoliosis is prominent in this patient but no acute spine disease is suspected. No intestinal obstruction or perforation is seen, no renal or ureteral calculus or urinary tract obstruction is found. Dictated by: Gregory Diamond M.D. on 09/29/2018 at 12:54 Approved by: Gregory Diamond M.D. on 09/29/2018 at 12:59 MDM Narrative Medical decision making narrative: Patient appears clinically dehydrated. She has dry mucous membranes. She states she felt much better after receiving fluids here in the emergency department. Patient's CT scan shows no acute pathology. She does have elevated liver enzymes and a normal lipase. She has had her gallbladder removed in the past. She has no abdominal pain. She denies the use of Tylenol. Denies alcohol use. States she has never been tested before for hepatitis-C. She has had a blood transfusion in the past. Her INR is elevated however she is on Coumadin. She does have a leukocytosis however also has elevated hemoglobin and hematocrit also elevated platelets. I do suspect that the majority of this is related to hemoconcentration due to her dehydration. She was not given antibiotics here in the emergency department. I discussed the case with the hospitalist who asked me to talk with GI providers about her elevated transaminases. I talked to the GI provider at [facility] who stated that he did not feel that the patient had an emergent procedural condition. He recommended workup for other elevated causes of elevation in transaminases. Will admit the provider here to this hospital. I discussed the admission with the patient the family. They all expressed understanding and agreement with plan. Discharge Plan Departure Patient Disposition: Admitted as Observation Clinical Impression: Acute dehydration, Nausea & vomiting, Transaminitis Discharge Date/Time: 09/29/18 16:27 Interventions: ED Discharge Assessment Last Done: 09/29/18 16:24 Admit Date/Time: 09/29/18 16:04 Admit Provider: Simin Allred
[2018-09-29] MEDS: SODIUM CHLORIDE 0.9% 1,000 ML 1000 ML IV (11:25)
[2018-09-29 11:56] LABS: INR 4.2 (0.9-1.3); Prothrombin Time 49.5 SECONDS (10.1-12.7)
[2018-09-29 11:57] LABS: Add Manual Diff / Slide Review NO; Basophils Absolute Auto 0 /uL (0-100); Basophils Percent Auto 0.2 % (0-2); Eosinophils Absolute Auto 0 /uL (0-450); Hematocrit 50.6 % (36-46); Hemoglobin 16.9 g/dL (12.0-16.0); Lymphocytes Absolute Auto 1800 /uL (1100-4500); Lymphocytes Percent Auto 9.3 % (25-40); Mean Corpuscular HGB Conc 33.3 % (30-36); Mean Corpuscular Volume 93.1 fL (80-100); Monocytes Absolute Auto 1700 /uL (0-900); Monocytes Percent Auto 8.7 % (3-14); Neutrophils Absolute Auto 15700 /uL (1500-7000); Neutrophils Percent Auto 81.8 % (50-75); Platelet Count 511 X10^3/uL (150-400); Red Blood Cell Count 5.44 X10^6/uL (4.0-5.2); White Blood Cell Count 19.2 X10^3/uL (4.5-11.0)
[2018-09-29 11:59] LABS: PTT Partial Thromboplastin Tim 46 SECONDS (26.4-36.2)
[2018-09-29 12:02] LABS: Albumin 4.1 g/dL (3.5-5.0); Albumin Globulin Ratio 1.2 (1.0-2.8); Alkaline Phosphatase 133 U/L (38-126); Aspartate Aminotransferase 641 IU/L (14-36); BUN Creatinine Ratio 51.7 (6-22); Blood Urea Nitrogen 62 mg/dL (7-17); Calcium 9.6 mg/dL (8.4-10.2); Carbon Dioxide 25 mmol/L (22-32); Chloride 94 mmol/L (98-107); Estimated Glomerular Filt Rate 43.6 mL/min (>60); Globulin 3.5 g/dL (1.7-4.1); Glucose 114 mg/dL (80-110); HEMOLYSIS 29 (0-50); Magnesium 2.2 mg/dL (1.6-2.3); Phosphorous 3.9 mg/dL (2.8-4.1); Potassium 3.6 mmol/L (3.4-5.1); Sodium 133 mmol/L (137-145); Total Protein 7.6 g/dL (6.3-8.2)
[2018-09-29 12:11] LABS: Alanine Aminotransferase 1306 IU/L (9-52)
[2018-09-29 12:14] LABS: Troponin I 0.022 ng/mL (0.01-0.034)
--- NOTE | 2018-09-29 12:16 | DI.CT.S_ITS ---
PROCEDURE: CT ABDOMEN PELVIS W CON INDICATIONS: Left-sided abdominal pain TECHNIQUE: After the administration of intravenous contrast, 5 mm thick sections acquired from the diaphragm to the symphysis. 5 mm coronal and sagittal reformats were acquired. For radiation dose reduction, the following was used: automated exposure control, adjustment of mA and/or kV according to patient size. COMPARISON: None. FINDINGS: Image quality: Excellent. ABDOMEN: Lung bases: Lung bases are clear. Heart size is normal. Solid organs: Liver is normal in size and enhancement. Gallbladder is not seen as a discrete entity, but surgical clips at the gallbladder fossa are not found.. Biliary system is prominent in caliber at 13 mm at the common hepatic duct and slightly smaller within the pancreatic head area and a pancreatic mass or distal common duct calculus is not found.. Pancreas enhances normally. Spleen is normal in size and enhancement. No adrenal nodules. Kidneys demonstrate normal size and enhancement, without hydronephrosis. Peritoneum and bowel: Bowel loops demonstrate normal wall thickness and caliber. No free fluid or air. Nodes and vessels: No retroperitoneal or mesenteric adenopathy by size criteria. Aorta and inferior vena cava are normal in size. Miscellaneous: No ventral hernias. PELVIS: Genitourinary: Bladder wall thickness is normal. Miscellaneous: No inguinal hernias or adenopathy. Bones: No suspicious bony lesions. No vertebral body compression fractures. IMPRESSION: A distal common bile duct calculus is not seen. There is a 13 mm caliber of the common bile duct but a gallbladder is not seen and metallic surgical clips are not identified. This may reflect post-cholecystectomy change. Please correlate with the patient for whether the gallbladder has been resected. Correlation with liver function tests likely would be warranted if the gallbladder remains in place but is contracted in a position that is not visible by CT scanning. Convex leftward scoliosis is prominent in this patient but no acute spine disease is suspected. No intestinal obstruction or perforation is seen, no renal or ureteral calculus or urinary tract obstruction is found. Dictated by: Gregory Diamond M.D. on 09/29/2018 at 12:54 Approved by: Gregory Diamond M.D. on 09/29/2018 at 12:59
[2018-09-29 12:17] LABS: Procalcitonin 0.11 ng/mL (<0.5)
[2018-09-29 12:22] LABS: Lipase 127 U/L (23-300)
[2018-09-29] MEDS: PIPERACILLIN-TAZO 3.375 GM/50 ML FROZ.PIGGY IV (13:45)
[2018-09-29] MEDS: SODIUM CHLORIDE 0.9% 1,000 ML 125 ML IV ×2 (13:46→17:31)
--- NOTE | 2018-09-29 18:27 | PC.NURSE ---
Admission/Evening Shift Note_ Patient arrived to room via stretcher from ER at 1620. Patient admission questions done, home medications reviewed, and physical assessment completed. oriented patient to bed and bed controlsl, room, bathroom, menu, lights, phone, and call rosenthal/tv remote. Patient agrees to call for assistance. bed alarm actiavted for safety. safety measures in place. call rosenthal and phone within reach. will continue to monitor.
[2018-09-29] MEDS: OXYCODONE/ACETAMINOPHEN 5/325 TABLET 1 TAB PO (22:25)
[2018-09-29 22:57] LABS: Appearance Urine UA CLEAR; Bilirubin Urine UA NEGATIVE (NEGATIVE); Color Urine UA YELLOW; Glucose Urine UA NEGATIVE (Negative); Ketones Urine UA 1+ (NEGATIVE); Leukocyte Esterase Urine UA NEGATIVE (NEGATIVE); Nitrite Urine UA NEGATIVE (Negative); Occult Blood Urine UA 1+ (Negative); Protein Urine UA NEGATIVE (Negative); Urobilinogen Urine UA 0.2 E.U./dL (0.2); pH Urine UA 6.5 (4.5-8.0)
[2018-09-29 23:21] LABS: Bacteria Urine Few (2-10); RBC Urine 0-1/HPF (0-5/HPF); Squamous Epithelial Cell Urine >30 /HPF; WBC Urine 0-1/HPF (0-5/HPF)
[2018-09-29 23:22] LABS: Culture Indicated Urine Cult Not Indicated
[2018-09-30] VITALS (10 sets, daily range): BP systolic 92–153; BP diastolic 47–79; PULSE 63–89; RESP 16–19; TEMP 36.4–37.4; O2SAT 96–98
--- NOTE | 2018-09-30 | DI.US.S_ITS ---
PROCEDURE: US ABDOMEN COMPLETE INDICATIONS: HEPATITIS; NAUSEA, VOMITING TECHNIQUE: Real-time scanning was performed of the abdominal and retroperitoneal organs, with image documentation. COMPARISON: [facility], CT, CT ABDOMEN PELVIS W CON, 09/29/2018, 12:32. FINDINGS: Liver: Liver is normal in size and homogeneous in echotexture. Gallbladder: Has been removed Biliary ducts: Intrahepatic bile ducts are non-dilated. Extrahepatic bile duct caliber measures 9 mm. Normal is 6-7 mm or less in diameter, or 10 mm or less post-cholecystectomy. Pancreas: Visualized portions of the pancreas are sonographically normal. Spleen: Spleen is normal in size and homogeneous in echotexture. Kidneys: Kidneys are normal in size and echotexture. Right kidney measures 9.7 cm long; left kidney measures 10.2 cm long. No hydronephrosis or nephrolithiasis. No solid masses. Aorta: Visualized aorta is normal in caliber at less than 3 cm. Iliacs: Proximal common iliac arteries are normal in caliber at less than 2.5 cm. IVC: Intrahepatic inferior vena cava is patent. Miscellaneous: No free abdominal fluid. IMPRESSION: Cholecystectomy. The common bile duct measures near the upper limits of normal for a post cholecystectomy patient. Dictated by: Delmer Warner M.D. on 09/30/2018 at 13:17 Approved by: Delmer Warner M.D. on 09/30/2018 at 13:18
[2018-09-30] MEDS: ACETAMINOPHEN 325 MG TABLET 650 MG PO (01:40)
--- NOTE | 2018-09-30 02:05 | PM.HP.1 ---
History of Present Illness Date Patient Seen: 09/29/18 Time Patient Seen: 21:45 Chief complaint: Abd pain, N/V Narrative: This is a 74-year-old female patient with a prior history atrial fibrillation on long-term anticoagulation with warfarin, CVA, expressive aphasia, dysarthria, chronic back, and depression presents to the ER today for several days of nausea vomiting. The patient is a difficult historian however reports that she has not been able to eat or drink fluids. She takes Reglan and Zofran home has done so for 3-4 years. She lives with her daughter and son-in-law were not available for additional history. She reports having nausea is constant but will wax and wane and describes ?a lot? of abdominal pain related to frequent vomiting. She reports no complaints of fevers or chills, headaches or dizziness, chest pain or shortness of breath and denies diarrhea or constipation. In the ER the patient underwent an abdominal CT which was significant for dilated common duct with no evidence of calculi. Exam noted nonvisualization of gallbladder which by history has been surgically removed. The laboratory analysis the patient has evidence of hemoconcentration with an H&H of 16.9 and hematocrit of 50.6. She does have an elevated white count 19 2 and platelets of 511. She has a a procalcitonin 0 11. On chemistry she has a BUN and creatinine of 62 and 1.2 respectively. She also demonstrates elevated transaminases with AST of 641, ALT of 1306, alkaline phosphatase 533. Her lipase within normal range. She has a supratherapeutic INR at 4.1 Patient History Medical History Atrial fibrillation with RVR (Acute) Chronic anticoagulation (Acute) History of stroke (Acute) Expressive aphasia (Acute) Chronic back pain (Acute) Atrial fibrillation (Acute) CVA (cerebrovascular accident) (Acute) Dysarthria (Acute) Smoker (Acute) Surgical History Hx of cholecystectomy (Acute) Family History Mother Cardiac disease Father Cardiac disease Social History household members: family and children Smoking Status: Former smoker Family & Social History Social History: household members family,children Prior Living Arrangements House Safety & Behavioral: Feels Safe in Current Yes Environment Been Physically Hurt or No Threatened By a Person Suicidal Ideation Description None Suicide Plan Description No Plan Tobacco & Substance use: Tobacco type cigarettes Smoking Status Former smoker alcohol intake frequency holiday/special occasion Substance Use Type marijuana Comment: The patient was previously for 15 years and subsequently for 30 years. She currently lives with her daughter and son-in-law in a single-level single family home. Both her parents are and has stepsiblings . Smoking: Patient states she has smoked off and on for many years and reports having last quit 4 years ago. She endorses smoking a couple of cigarettes a day Alcohol: Occasional on special occasions Substance abuse: Denies use of recreational pharmaceuticals or cannabis products Advanced directives: Patient wishes to be a full code her surrogate decision maker. Med Home Medications Medication Instructions Recorded Confirmed Type gabapentin 1 cap PO BEDTIME 06/25/18 09/29/18 History metoprolol succinate 1 tab PO BID 06/25/18 09/29/18 History ondansetron 1 tab PO Q4-6H PRN 06/25/18 09/29/18 History oxycodone-acetaminophen 1 tab PO BID 06/25/18 09/29/18 History paroxetine HCl 1 tab PO DAILY 06/25/18 09/29/18 History warfarin 2 mg PO QPM 06/25/18 09/29/18 History amiodarone 200 mg PO DAILY 09/29/18 09/29/18 History metoclopramide HCl [Reglan] 5 mg PO DIRECTED PRN 09/29/18 09/29/18 History Allergies Allergy/AdvReac Type Severity Reaction Status Date / Time Latex, Natural Rubber Allergy Mild Hives Verified 06/25/18 12:33 Review of Systems Review of Systems Constitutional: Positive for feeling hot and cold Denies sweats, fatigue, good appetite reports stable weight Eyes: Denies visual changes, denies floaters, diplopia ENT: Denies headaches, hearing changes, ear pain, no nasal congestion, rhinorrhea, no dysphagia, sore throat, no neck stiffness or pain Respiratory: Denies SOB, cough, exertional dyspnea, wheezing Cardiovascular: Positive for history of atrial fibrillation Denies chest pain, palpitations, orthostatic dizziness, syncope, edema Gastrointestinal: Positive for gastric problems, nausea vomiting, abdominal pain Denies no reflux or bloating, constipation or diarrhea, denies blood in stool. Genitourinary: denies discharge, no complains of frequency, burning or urgency, hematuria on voiding Musculoskeletal: denies falls, weakness, limited movement, cramps, edema, myalgia or joint swelling. Integumentary: denies skin lesions, masses, rashes, hives, itching Neurological: Positive for CVA, dysarthria, expressive aphasia, denies dizziness, confusion, numbness or tingling, seizures Psychiatric: denies disturbances in thought, attentions or mood, denies substance abuse Endocrine: Positive for feeling hot and cold, denies goiter, lethargy, abnormal sweating, and heat/cold intolerance. Heme/lymph: Denies lymphadenopathy, abnormal bleeding or bruising Exam Vital Signs (past 8 hours): - 09/29/18 19:45 09/29/18 23:00 09/30/18 00:05 Temperature 97.6 F 97.6 F Pulse Rate 82 86 Respiratory Rate 19 16 Blood Pressure 132/88 111/79 Pulse Oximetry 98 98 98 Oxygen Delivery Method Room Air Narrative Exam Narrative: General: Well developed, well nourished, in no acute distress. Skin: Warm, dry, pink, poor skin turgor, no rashes, no visible lesions HEENT: Normocephalic, symmetrical facies , no ptosis PERRLA, EOMs intact without nystagmus, conjunctiva moist, sclera is anicteric, no ear pain, hearing grossly normal, no sinus tenderness to percussion, no rhinorrhea, oropharynx is moist and pink without lesions or exudate, no cervical lymphadenopathy Neck: Supple, no masses, no thyromegaly, trachea midline, no carotid bruits or JVD, no supraclavicular lymphadenopathy Cardiac: Irregularly irregular rhythm, controlled rate, S1-S2, no murmur, no gallops or rubs, 2+ radial pulse, 1+ dorsalis pedis pulse, capillary refill is brisk, no edema Chest: Symmetrical movement, no pain to AP and lateral compression, breathing non labored, no cough present, BS equal bilateral without coarseness, crackles or wheezes Abdomen: Soft, bilateral upper quadrant tenderness on palpation without guarding, no palpable masses or organomegaly, no suprapubic pain, BS normal. Back: Pronounced scoliosis with leftward lumbar and rightward thoracic curves, tenderness on palpation without nolberto spinal muscular spasms Extremities: Preserved range of motion, no synovial effusions or deformities, strength 4/5 and symmetrical Neuro: AAOx4, speech is clear, no evidence of expressive aphasia solution lead and doriplantar flexion are equal bilateral distal sensation intact to light touch, no paresthesias Psych: pleasant, thought coherent, stable mood and congruent affect Objective Labs Result Diagrams: 09/29/18 10:49 09/29/18 10:49 Labs: Laboratory Results - last 24 hr 09/29/18 09/29/18 09/29/18 10:49 10:49 10:49 WBC 19.2 H RBC 5.44 H Hgb 16.9 H Hct 50.6 H MCV 93.1 MCH 31.0 MCHC 33.3 RDW 15.0 H Plt Count 511 H Neut % (Auto) 81.8 H Lymph % (Auto) 9.3 L [place] % (Auto) 8.7 Eos % (Auto) 0.0 L Baso % (Auto) 0.2 Neut # (Auto) 34746 H Lymph # (Auto) 1800 [place]linger # (Auto) 1700 H Eos # (Auto) 0 Baso # (Auto) 0 PT 49.5 H INR 4.2 H APTT 46 H Sodium 133 L Potassium 3.6 Chloride 94 L Carbon Dioxide 25 BUN 62 H Creatinine 1.20 H Estimated GFR 43.6 L BUN/Creatinine Ratio 51.7 H Glucose 114 H Calcium 9.6 Phosphorus 3.9 Magnesium 2.2 Total Bilirubin 1.0 AST 641 H ALT 1306 H Alkaline Phosphatase 133 H Troponin I Total Protein 7.6 Albumin 4.1 Globulin 3.5 Albumin/Globulin Ratio 1.2 Lipase Procalcitonin Urine Color Urine Appearance Urine pH Ur Specific [place] Urine Protein Urine Glucose (UA) Urine Ketones Urine Occult Blood Urine Nitrate Urine Bilirubin Urine Urobilinogen Ur Leukocyte Esterase Urine RBC Urine WBC Ur Squamous Epith Cells Urine Bacteria Ur Culture Indicated? Micro UA Comment 09/29/18 09/29/18 09/29/18 10:50 11:40 11:40 WBC RBC Hgb Hct MCV MCH MCHC RDW Plt Count Neut % (Auto) Lymph % (Auto) [place]linger % (Auto) Eos % (Auto) Baso % (Auto) Neut # (Auto) Lymph # (Auto) Bollinger # (Auto) Eos # (Auto) Baso # (Auto) PT INR APTT Sodium Potassium Chloride Carbon Dioxide BUN Creatinine Estimated GFR BUN/Creatinine Ratio Glucose Calcium Phosphorus Magnesium Total Bilirubin AST ALT Alkaline Phosphatase Troponin I 0.022 Total Protein Albumin Globulin Albumin/Globulin Ratio Lipase 127 Procalcitonin 0.11 Urine Color Urine Appearance Urine pH Ur Specific [place] Urine Protein Urine Glucose (UA) Urine Ketones Urine Occult Blood Urine Nitrate Urine Bilirubin Urine Urobilinogen Ur Leukocyte Esterase Urine RBC Urine WBC Ur Squamous Epith Cells Urine Bacteria Ur Culture Indicated? Micro UA Comment 09/29/18 22:45 WBC RBC Hgb Hct MCV MCH MCHC RDW Plt Count Neut % (Auto) Lymph % (Auto) Bollinger % (Auto) Eos % (Auto) Baso % (Auto) Neut # (Auto) Lymph # (Auto) Bollinger # (Auto) Eos # (Auto) Baso # (Auto) PT INR APTT Sodium Potassium Chloride Carbon Dioxide BUN Creatinine Estimated GFR BUN/Creatinine Ratio Glucose Calcium Phosphorus Magnesium Total Bilirubin AST ALT Alkaline Phosphatase Troponin I Total Protein Albumin Globulin Albumin/Globulin Ratio Lipase Procalcitonin Urine Color Yellow Urine Appearance Clear Urine pH 6.5 Ur Specific [place] 1.010 Urine Protein Negative Urine Glucose (UA) Negative Urine Ketones 1+ H Urine Occult Blood 1+ H Urine Nitrate Negative Urine Bilirubin Negative Urine Urobilinogen 0.2 Ur Leukocyte Esterase Negative Urine RBC 0-1/hpf Urine WBC 0-1/hpf Ur Squamous Epith Cells >30 /hpf H Urine Bacteria Few (2-10) H Ur Culture Indicated? Cult not indicated Micro UA Comment * [place] [address] CT Scan Report Signed Patient: Christie Kong MR#: [id number] : 1940 Acct:[id number] Age/Sex: 77 / F Date of Service: 09/29/18 Loc: ED Accession Number: [id number] Procedure: CT abdomen pelvis w con Ordering Provider: Dank Sanders D.O. PROCEDURE: CT ABDOMEN PELVIS W CON INDICATIONS: Left-sided abdominal pain TECHNIQUE: After the administration of intravenous contrast, 5 mm thick sections acquired from the diaphragm to the symphysis. 5 mm coronal and sagittal reformats were acquired. For radiation dose reduction, the following was used: automated exposure control, adjustment of mA and/or kV according to patient size. COMPARISON: None. FINDINGS: Image quality: Excellent. ABDOMEN: Lung bases: Lung bases are clear. Heart size is normal. Solid organs: Liver is normal in size and enhancement. Gallbladder is not seen as a discrete entity, but surgical clips at the gallbladder fossa are not found.. Biliary system is prominent in caliber at 13 mm at the common hepatic duct and slightly smaller within the pancreatic head area and a pancreatic mass or distal common duct calculus is not found.. Pancreas enhances normally. Spleen is normal in size and enhancement. No adrenal nodules. Kidneys demonstrate normal size and enhancement, without hydronephrosis. Peritoneum and bowel: Bowel loops demonstrate normal wall thickness and caliber. No free fluid or air. Nodes and vessels: No retroperitoneal or mesenteric adenopathy by size criteria. Aorta and inferior vena cava are normal in size. Miscellaneous: No ventral hernias. PELVIS: Genitourinary: Bladder wall thickness is normal. Miscellaneous: No inguinal hernias or adenopathy. Bones: No suspicious bony lesions. No vertebral body compression fractures. IMPRESSION: A distal common bile duct calculus is not seen. There is a 13 mm caliber of the common bile duct but a gallbladder is not seen and metallic surgical clips are not identified. This may reflect post-cholecystectomy change. Please correlate with the patient for whether the gallbladder has been resected. Correlation with liver function tests likely would be warranted if the gallbladder remains in place but is contracted in a position that is not visible by CT scanning. Convex leftward scoliosis is prominent in this patient but no acute spine disease is suspected. No intestinal obstruction or perforation is seen, no renal or ureteral calculus or urinary tract obstruction is found. Dictated by: Gregory Diamond M.D. on 09/29/2018 at 12:54 Approved by: Gregory Diamond M.D. on 09/29/2018 at 12:59 Assessment & Plan (1) Acute dehydration: Problem details: Patient hemoconcentrated with elevated BUN creatinine ratio. Rehydrate cautiously with normal saline at 125 cc per Current visit: Yes Status: Acute (2) Nausea & vomiting: Problem details: Patient with longstanding history of nausea and vomiting with chronic use of Reglan and Zofran Dehydration likely related to decreased oral intake and nausea vomiting. Will continue antiemetics Will rehydrate as above Qualifiers: Vomiting Intractability: unspecified Vomiting type: unspecified Qualified Code(s): R11.2 - Nausea with vomiting, unspecified Current visit: Yes Status: Acute (3) Transaminitis: Problem details: Patient with elevated transaminase with dilated common duct at 13 mm without evidence calculi or blockage on CT exam Status post cholecystectomy Unclear etiology will evaluate response to fluids Current visit: Yes Status: Acute (4) Chronic anticoagulation: Problem details: History of atrial fibrillation on chronic warfarin therapy 2 mg daily INR supratherapeutic at 4.2 Will hold warfarin and recheck INR in the morning Current visit: No Status: Acute (5) History of stroke: Problem details: History of stroke with expressive aphasia and dysarthria not appreciated on exam today Current visit: No Status: Acute (6) Chronic back pain: Problem details: Patient was severe scoliosis and chronic back pain Oxycodone-acetaminophen 5/325 every 6 hr as needed for pain Current visit: Yes Status: Acute (7) Atrial fibrillation: Problem details: Chronic history of atrial fibrillation Current visit: Yes Status: Acute Plan: Assessment/Plan Narrative: This is a 77-year-old female patient who is cachectic in appearance who was acutely dehydrated and presents with elevated liver functions and is admitted observation due to risks potential complications need for close monitoring. The patient's length of stay is not expected to exceed 2 midnights. Scores GCS [place] coma scale eye opening: Spontaneous [place] coma scale verbal response: Orientated [place] coma scale motor response: Obey commands [place] coma scale total score: 15 Quality VTE Deep Vein Thrombosis/Pulmonary Embolism Present on Admission: No
[2018-09-30] MEDS: ONDANSETRON 4 MG ODT PO (03:08)
[2018-09-30] MEDS: PANTOPRAZOLE 20 MG TABLET PO (05:53)
[2018-09-30] MEDS: OXYCODONE/ACETAMINOPHEN 5/325 TABLET 1 TAB PO (05:53)
[2018-09-30] MEDS: SODIUM CHLORIDE 0.9% 1,000 ML 125 ML IV (05:53)
[2018-09-30 06:59] LABS: Add Manual Diff / Slide Review NO; Basophils Absolute Auto 0 /uL (0-100); Eosinophils Absolute Auto 0 /uL (0-450); Eosinophils Percent Auto 0.2 % (2-4); Hematocrit 42.7 % (36-46); Hemoglobin 14.5 g/dL (12.0-16.0); Lymphocytes Absolute Auto 1700 /uL (1100-4500); Lymphocytes Percent Auto 10.9 % (25-40); Mean Corpuscular HGB Conc 33.9 % (30-36); Mean Corpuscular Hemoglobin 31.2 PG (26-34); Mean Corpuscular Volume 92.1 fL (80-100); Monocytes Absolute Auto 1200 /uL (0-900); Monocytes Percent Auto 7.9 % (3-14); Neutrophils Absolute Auto 12400 /uL (1500-7000); Platelet Count 418 X10^3/uL (150-400); Red Blood Cell Count 4.63 X10^6/uL (4.0-5.2); Red Cell Distribution Width 15.1 % (11.6-14.8); White Blood Cell Count 15.3 X10^3/uL (4.5-11.0)
--- NOTE | 2018-09-30 07:09 | PC.NURSE ---
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 Lethargic this morning, but AOx4. Chronic back pain controlled with PRN percocet
[2018-09-30 07:10] LABS: Prothrombin Time 60.2 SECONDS (10.1-12.7)
[2018-09-30 07:13] LABS: Albumin 3.4 g/dL (3.5-5.0); Albumin Globulin Ratio 1.1 (1.0-2.8); Alkaline Phosphatase 104 U/L (38-126); Aspartate Aminotransferase 497 IU/L (14-36); BUN Creatinine Ratio 43.3 (6-22); Bilirubin Total 0.8 mg/dL (0.2-1.3); Blood Urea Nitrogen 39 mg/dL (7-17); Calcium 8.8 mg/dL (8.4-10.2); Carbon Dioxide 25 mmol/L (22-32); Chloride 102 mmol/L (98-107); Estimated Glomerular Filt Rate > 60.0 mL/min (>60); Glucose 90 mg/dL (80-110); HEMOLYSIS < 15 (0-50); Magnesium 1.9 mg/dL (1.6-2.3); Potassium 3.3 mmol/L (3.4-5.1); Sodium 134 mmol/L (137-145); Total Protein 6.4 g/dL (6.3-8.2)
[2018-09-30 07:21] LABS: Alanine Aminotransferase 1028 IU/L (9-52)
--- NOTE | 2018-09-30 07:40 | PC.NURSE ---
JACKIE Hendricks advised of this mornings' INR of 5.0.
[2018-09-30] MEDS: AMIODARONE 200 MG TABLET PO (09:07)
[2018-09-30] MEDS: PARoxetine 10 MG TABLET PO (09:07)
[2018-09-30] MEDS: METOCLOPRAMIDE HCL 5 MG TABLET PO (09:08)
[2018-09-30] MEDS: DEXTROSE 5%-0.9% NS 1,000 ML 125 ML IV (12:05)
[2018-09-30] MEDS: LORazepam 0.5 MG TABLET 0.25 MG PO ×2 (12:15→16:59)
--- NOTE | 2018-09-30 13:24 | PC.NURSE ---
significant leaking occurred around IV site to patient's left arm, had to discontinue. Unable to place new IV (2 unsuccessful attempts) at this time. ICU nurse will be coming to attempt placement, waiting at this time. Patient NPO for abdominal ultrasound at this time. Resting comfortably in bed, call light within reach, bed alarm on for safety.
[2018-09-30] MEDS: POTASSIUM CHLORIDE 40 MEQ in SODIUM CHLORIDE 0.9% 500 ML 130 ML IV (14:25)
--- NOTE | 2018-09-30 15:44 | DIET.PN ---
Consult received for nutrition assessment. Pt not yet eating-NPO for abdominal CT. Sleeping during rounds; unable to interview/did not disturb. BMI is very low placing pt at high risk for malnourishment. Plan to visit tomorrow to complete assessment.
[2018-10-01] VITALS (8 sets, daily range): BP systolic 113–139; BP diastolic 65–83; PULSE 70–94; RESP 16–20; TEMP 36.3–37; O2SAT 93–97; BMI 15.6
--- NOTE | 2018-10-01 | DI.NM.S_ITS ---
PROCEDURE: NM GASTRIC EMPTYING STUDY RADIOPHARMACEUTICAL: 1.0 mCi Tc-99m sulfur colloid in an egg sandwich. INDICATIONS: Cyclic Vomitting, Cachexia TECHNIQUE: A Tc-99m labeled sulfur colloid labeled egg sandwich or oatmeal was served to the patient. Anterior and posterior planar images of the abdomen were obtained at 0 minutes and 30 minutes, then at hourly intervals up to 4 hours. The patient was upright and ambulating during the interval. COMPARISON: None. FINDINGS: The stomach has normal size, morphology, and position. There is normal emptying of solid gastric contents from the stomach by visual inspection. No gastroesophageal reflux is visualized. The percentage of tracer retained at specific time points are as follows: Time point Percent gastric retention Normal range 30 minutes 36% 70% or more 1 hour 15% 30% to 90% IMPRESSION: Abnormally rapid gastric emptying. Dictated by: Gregory Diamond M.D. on 10/02/2018 at 12:14 Approved by: Gregory Diamond M.D. on 10/02/2018 at 12:15
[2018-10-01] MEDS: ONDANSETRON 4 MG ODT PO ×4 (00:44→22:35)
[2018-10-01] MEDS: OXYCODONE/ACETAMINOPHEN 5/325 TABLET 1 TAB PO ×5 (00:47→18:58)
--- NOTE | 2018-10-01 02:57 | PC.NURSE ---
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 Pt sleeping between care. Will continue to monitor for needs and safety.
[2018-10-01] MEDS: DEXTROSE 5%-0.9% NS 1,000 ML 125 ML IV (03:30)
--- NOTE | 2018-10-01 06:31 | P.PN_ITS ---
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 The patient is sitting up in bed comfortably and eating her morning breakfast. She endorses low-back pain related to her scoliosis which is not reproducible with palpation. She continues to endorse intermittent nausea and vomiting. Discussed hyperemesis cannabis in detail and recommended abstaining from smoking marijuana or consuming any marijuana products altogether. She denies headache, chest pain, shortness of breath, abdominal pain, fever, chills, dysuria, diarrhea or constipation. She is quite emaciated and cachectic in appearance. She reports she has had significant weight loss over the last 1 year but has been gradual over the last 3 years total. Exam Vital Signs (past 8 hours): - 09/30/18 23:00 09/30/18 23:40 10/01/18 04:36 Temperature 98.4 F 98.0 F Pulse Rate 89 83 Respiratory Rate 16 16 Blood Pressure 125/74 125/76 Pulse Oximetry 98 98 97 Oxygen Delivery Method Room Air Narrative Exam Narrative: General: Elderly cachectic and emaciated female sitting in bed, appears comfortable, appropriately interactive. HEENT: Normocephalic, atraumatic. External ears without defect. Pupils equal, round, and reactive to light. Anicteric sclerae, moist conjunctivae, and no lid lag. Neck: Supple with full range of motion. No lymphadenopathy or thyromegaly. Cardiovascular: Regular rate and rhythm without murmurs, rubs, or gallops appreciated Pulmonary: Difficult to auscultate heart sounds due to inability to make contact with skin as patient is thin and ribs protrude. Appears clear to auscultation bilaterally without crackles, wheezes, or rhonchi. Normal respiratory effort with no use of accessory muscles. Abdomen: Soft, bowel sounds present, non-tender, nondistended. No hepatosplenomegaly or masses appreciated. Extremities: No clubbing, cyanosis, or edema. Skin: Normal temperature, turgor, and texture; no rash, ulcers, or subcutaneous nodules appreciated. Neurological: Cranial nerves grossly intact. Pill rolling tremor, cogwheel rigidity, tardive dyskinesia/repetitive mouth movement all consistent with parkinsonian like presentation. Psychiatric: Normal mood and affect. Alert and oriented to person, place, and time. Objective Labs Result Diagrams: 10/01/18 07:05 10/01/18 07:05 Labs: Laboratory Results - last 24 hr 09/30/18 09/30/18 09/30/18 06:06 06:06 06:06 WBC 15.3 H RBC 4.63 Hgb 14.5 Hct 42.7 MCV 92.1 MCH 31.2 MCHC 33.9 RDW 15.1 H Plt Count 418 H Neut % (Auto) 81.0 H Lymph % (Auto) 10.9 L Motley % (Auto) 7.9 Eos % (Auto) 0.2 L Baso % (Auto) 0.0 Neut # (Auto) 43160 H Lymph # (Auto) 1700 Motley # (Auto) 1200 H Eos # (Auto) 0 Baso # (Auto) 0 PT 60.2 H D INR 5.0 H* Sodium 134 L Potassium 3.3 L Chloride 102 Carbon Dioxide 25 BUN 39 H Creatinine 0.90 Estimated GFR > 60.0 BUN/Creatinine Ratio 43.3 H Glucose 90 Calcium 8.8 Magnesium 1.9 Total Bilirubin 0.8 AST 497 H ALT 1028 H Alkaline Phosphatase 104 Total Protein 6.4 Albumin 3.4 L Globulin 3.0 Albumin/Globulin Ratio 1.1 TSH 09/30/18 06:06 WBC RBC Hgb Hct MCV MCH MCHC RDW Plt Count Neut % (Auto) Lymph % (Auto) Motley % (Auto) Eos % (Auto) Baso % (Auto) Neut # (Auto) Lymph # (Auto) Motley # (Auto) Eos # (Auto) Baso # (Auto) PT INR Sodium Potassium Chloride Carbon Dioxide BUN Creatinine Estimated GFR BUN/Creatinine Ratio Glucose Calcium Magnesium Total Bilirubin AST ALT Alkaline Phosphatase Total Protein Albumin Globulin Albumin/Globulin Ratio TSH 2.40 Assessment & Plan Plan: Assessment/Plan Narrative: Christie Kong is a 74-year-old female patient with a prior history atrial fibrillation on long-term anticoagulation with warfarin, 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 1. Acute severe dehydration secondary to acute on chronic nausea and vomiting, present on admission. Active. -Patient has history of cannabis use and there is a high possibility that this represents hyperemesis cannabis alone or with some other smoldering and unapparent process. -Patient hemoconcentrated with elevated BUN/creatinine ratio. -Continue to rehydrate with D5 normal saline 125 mL/hr. -Abdominal CT 13 mm caliber of the common bile duct but a gallbladder is not seen and metallic surgical clips are not identified but patient reports history of cholecystectomy, therefore, CBD normal in caliber. -Abdominal ultrasound demonstrated normal viscera. -Previous EGD/colonoscopy 3 years ago in [place] reportedly normal. -Patient has history of cannabis use and there is a possibility that this represents hyperemesis cannabis versus some other smoldering process. 2. Acute on chronic severe protein calorie malnutrition with severe failure to thrive, present on admission. Active. -patient presented with weight of 38 kg/BMI 14 placing her in less than 60% of the 50th percentile for weight and age per [facility] [place] Guidelines for severe failure to thrive. -Patient with longstanding history of nausea and vomiting with chronic use of Reglan and Zofran. -Continue Zofran and added Ativan 0.25 mg p.o. 3 times daily as needed. Discontinued Reglan as patient has signs of tardive dyskinesia. -Will rehydrate as above. -Ordered high-calorie diet. -Consulted dietitian for evaluation and treatment. 3. Acute transaminitis, present on admission. Active. -Patient with elevated transaminases and with CBD of 13 mm without evidence calculi or blockage on CT exam and status post cholecystectomy so CBD normal in caliber. -Likely secondary to acute dehydration and biliary stasis. 4. Acute leukocytosis, present on admission. Active. -No apparent signs infection (Afebrile, UA negative, abdomen soft, procalcitonin <0.05, CT negative). Due to chronic nausea and vomiting this may possibly be due to an acute stress response and dehydration. -Continue to monitor WBC daily. 5. Paroxysmal atrial fibrillation on chronic anticoagulation, present on admission. Active. -History of atrial fibrillation on chronic warfarin therapy 2 mg daily -Initial INR supratherapeutic at 4.2. Trending up to 5.0 today likely due to vitamin K deficiency from acute on chronic protein malnutrition. -Continue to hold warfarin and recheck INR daily. 6. History of CVA. -History of stroke with expressive aphasia and dysarthria not appreciated on exam today. -Patient does have signs of tardive dyskinesia and discontinued Reglan indefinitely as above. 7. Chronic back pain, present on admission. Stable. -Patient was severe scoliosis and chronic back pain. -Continue Oxycodone-acetaminophen 5/325 every increased to every 4 hr as needed for pain. 8. Parkinsonian like features, chronic, present on admission. Stable. -Patient will need outpatient neurology consultation. Disposition: Patient likely to discharge once acute dehydration with hemoconcentration and transaminitis resolve and nausea and vomiting improved with close outpatient follow-up. Quality VTE Deep Vein Thrombosis/Pulmonary Embolism Present on Admission: No
[2018-10-01] MEDS: PANTOPRAZOLE 20 MG TABLET PO (06:43)
[2018-10-01 07:27] LABS: Add Manual Diff / Slide Review NO; Basophils Absolute Auto 0 /uL (0-100); Basophils Percent Auto 0.1 % (0-2); Eosinophils Absolute Auto 0 /uL (0-450); Hematocrit 40.6 % (36-46); Hemoglobin 13.3 g/dL (12.0-16.0); Lymphocytes Absolute Auto 1400 /uL (1100-4500); Lymphocytes Percent Auto 8.4 % (25-40); Mean Corpuscular HGB Conc 32.7 % (30-36); Mean Corpuscular Hemoglobin 30.3 PG (26-34); Mean Corpuscular Volume 92.5 fL (80-100); Monocytes Absolute Auto 1100 /uL (0-900); Monocytes Percent Auto 6.2 % (3-14); Neutrophils Absolute Auto 14700 /uL (1500-7000); Neutrophils Percent Auto 85.3 % (50-75); Platelet Count 384 X10^3/uL (150-400); Red Blood Cell Count 4.39 X10^6/uL (4.0-5.2); Red Cell Distribution Width 15.4 % (11.6-14.8); White Blood Cell Count 17.3 X10^3/uL (4.5-11.0)
[2018-10-01 07:32] LABS: Prothrombin Time 64.1 SECONDS (10.1-12.7)
--- NOTE | 2018-10-01 07:32 | PC.NURSE ---
Day shift: Pt c/o back pain. Pt was given percocet by ALEXIA Horne at 0645. Pt is convinced that she was only given Tylenol though. Was told three times by this teletypewriter operator that it was percocet but Pt still certain it was just Tylenol. Agrees to not get OOB without help from staff.
[2018-10-01 07:38] LABS: Alanine Aminotransferase 649 IU/L (9-52); Albumin 2.7 g/dL (3.5-5.0); Alkaline Phosphatase 85 U/L (38-126); Aspartate Aminotransferase 185 IU/L (14-36); BUN Creatinine Ratio 31.7 (6-22); Bilirubin Total 0.7 mg/dL (0.2-1.3); Blood Urea Nitrogen 19 mg/dL (7-17); Calcium 8.3 mg/dL (8.4-10.2); Carbon Dioxide 22 mmol/L (22-32); Chloride 107 mmol/L (98-107); Estimated Glomerular Filt Rate > 60.0 mL/min (>60); Globulin 2.6 g/dL (1.7-4.1); Glucose 161 mg/dL (80-110); HEMOLYSIS < 15 (0-50); Potassium 3.2 mmol/L (3.4-5.1); Sodium 136 mmol/L (137-145); Total Protein 5.3 g/dL (6.3-8.2)
[2018-10-01 07:42] LABS: INR 5.4 (0.9-1.3)
[2018-10-01 07:56] LABS: Procalcitonin < 0.05 ng/mL (<0.5)
[2018-10-01] MEDS: LORazepam 0.5 MG TABLET PO (08:56)
[2018-10-01] MEDS: AMIODARONE 200 MG TABLET PO (08:56)
[2018-10-01] MEDS: PARoxetine 10 MG TABLET PO (08:56)
--- NOTE | 2018-10-01 10:38 | CM.DANOTE ---
Addendum entered by Destiny Garcia LPN 10/01/18 14:38: Met now with Charity and her Ravinder. Pt sleeping. SNF choice list: given: decision: [facility] Referral: [facility]: reviewing and expects to accept. P: [facility] when stable for d/c to snf level care. Confirm with Charity when [facility] accepts. 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 Confirms: PCP: Bob Briceno She reports her mother moved from [place] about 3 months ago to live with her and her . She is committed to caring for her mother for the group home but says short snf stay would seem very appropriate and then a follow to her home and [facility]. Pt currently has Medicare only. She was under a managed Medicare plan in [place] and has now switched. They are in process of applying for JANET assist. She will be here today at 1400. Dr. Allred is aware but at this point does not have time to see her for update on the dx and treatment options. Charity also confirms she is very aware of the [facility] program and is walking a fine line between what I think might be best and what my mother wants. At this point she is hopeful her mother will accept the short snf stay to help with rehab and recovery before the return home with family. Original Note: Addendum entered by Destiny aGrcia LPN 10/01/18 11:02: Went to room to meet pt. She was lying in bed, snoring. No rouse to voice. THOMAS Campos agrees to alert this CM if/when family arrive. Called DPOA daughter Charity [place]: [phone]. No identifier on so left a general message without pt's name requesting a call back to discuss d/c planning issues. Spoke with PT Saira who plans now to see pt today. P: consider short snf, HH if indicated. Original Note: Discharge Planning/Care Management DCP: assessment: case received, EMR reviewed. Discussed in Team Rounds this morning. Pt is a 77 year old female who admitted to care of hospitalist team late aftern09/29. Dr. Allred is seeing pt today. ? PCP Payer: Medicare . No supplement listed on face sheet info. Dr. Allred notes that full dx and tx plan remain in process but much of pt's medical issues will need to be followed up in the outpt setting. PT and OT are ordered now at request of Dr. Allred. Pt does carry hx of CVA with some expressive aphasia. Dr. Allred also notes she shows s/s that appear to be Parkinson type of process. P: see pt today and follow. May benefit from a short snf stay before home. POA is Charity [place], daughter, with whom she lives....will also follow up with her. CM Discharge Assessment Start: 10/01/18 10:36 Freq: Status: Active Protocol: Document 10/01/18 10:36 ITV (Rec: 10/01/18 10:38 ITV [id number]) Discharge Planning Assessment Advance Directives? Yes: DPOA Advance Directives on File Yes History Provided By Patient Family Member Prior Living Arrangements House Household Members family children Whiteboard Updated in Patient Room with Yes name and ext. # of Air Tool Operator Review Status In Process Next Review Type Continued Stay Review
[2018-10-01] MEDS: SODIUM CHLORIDE 0.9% 1,000 ML 125 ML IV (11:32)
--- NOTE | 2018-10-01 11:45 | PT.IIE ---
Current Diagnoses Dehydration (09/29/18) Other chronic pain (09/29/18) Unspecified atrial fibrillation (09/29/18) Dorsalgia, unspecified (09/29/18) Nausea with vomiting, unspecified (09/29/18) Nonspecific elevation of levels of transaminase and lactic acid dehydrogenase [LDH] (09/29/18) roasterman (current) use of anticoagulants (09/29/18) Personal history of transient ischemic attack (TIA), and cerebral infarction without residual deficits (09/29/18) Surgical History (Last Reviewed 09/30/18 @ 02:32 by JACKIE Yu) Hx of cholecystectomy (Acute) Medical History (Last Updated 09/30/18 @ 03:08 by JACKIE Yu) Atrial fibrillation with RVR (Acute) Chronic anticoagulation (Acute) History of stroke (Acute) Expressive aphasia (Acute) Chronic back pain (Acute) Atrial fibrillation (Acute) CVA (cerebrovascular accident) (Acute) Dysarthria (Acute) Smoker (Acute) Physical Therapy Inpatient Evaluation/Re-Eval M1 PT/OT-IP Prior Functional Status Start: 10/01/18 12:26 Freq: NEEDED Status: Active Protocol: Document 10/01/18 11:45 AB (Rec: 10/01/18 12:41 AB [id number]) Medical Review Prior Functional Status Medical History Reviewed Yes Communication able to make needs known Mobility and Gait stated that she was independent with all mobilities and ambulation without AD but was needing assistance for the last week due to her not feeling well Social History Household Members family children Living Arrangements House Number of Floors (Floors) One Floor Number of Stairs To Enter/Railing? no steps to enter Home Environment Walk in Shower Home Equipment Shower Seat with Backrest Hand Held Shower Grab Bars Near Toilet Grab Bars In Shower Employment Status Retired M2 PT-IP Current Condition Start: 10/01/18 12:26 Freq: NEEDED Status: Active Protocol: Document 10/01/18 11:45 AB (Rec: 10/01/18 12:41 AB [id number]) Physical Therapy Current Condition Current Condition Evaluation Date 10/01/18 Treatment Diagnosis dehydration; difficulty in walkinig Onset Date 09/29/18 Precautions Other Precautions falls M3 PT-IP Subjective Start: 10/01/18 12:26 Freq: NEEDED Status: Active Protocol: Document 10/01/18 11:45 AB (Rec: 10/01/18 12:41 AB [id number]) Subjective Physical Therapy Visit Type Type Initial Evaluation Visit Start Time 11:45 Visit Stop Time 12:20 Total Visit Minutes 35 Number of TREE TAPPING LABORER Visits 0 Physical Therapy Visit Comments Patient Comments Don't make me get up stated that she is not feeling well; pt educated and agreed to get up M4 PT-IP Mobility and Gait Start: 10/01/18 12:26 Freq: NEEDED Status: Active Protocol: Document 10/01/18 11:45 AB (Rec: 10/01/18 12:41 AB [id number]) PT-Bed Mobility Assessment Supine to Sit Supine to Sit Standby Assistance Scooting Scooting to Edge of Bed Standby Assistance PT-Transfer Assessment Sit to and From Stand Sit to and from Stand Contact Guard Assistance Equipment Transfer Assistive Device Gait Belt Front Wheeled Walker Orthotic/Prosthetic Devices or Brace: No Transfers Transfer Destination Bedside Commode Transfer Technique pt ambulated to the bedside commode using FWW Transfer Ability Level of Assist Minimal Assistance Use of Upper Extremities Comments Mobility Comments pt requested to use the toilet but refused to walk to the toilet and prefers to use the bedside commode. pt ambulated from the bed to the bedside commode using FWW min A and cues. pt can be impulsive. pt was able to maintain standing balance using FWW for support min A while managing pants. pt completed sit to stand from bedside commode CGA and ambulated the chair using FWW min A ~ 10 ft. set up pt for lunch. Gait Assessment Gait Gait Assistance Required: Minimum Assistance Distance (Feet) 15 Able to Maintain Weight Bearing Status Yes During Gait Assistive Devices Assistive Device Gait Belt Front Wheeled Walker Orthotic/Prosthetic Devices or Brace: No Gait Deviations General Gait Pattern Antalgic Decreased Stride Length Decreased Feet Clearance Factors Limiting Gait Function Factors Limiting Gait Function Decreased Activity Tolerance Decreased Strength Poor Balance Poor Safety Awareness Comments Gait Comments pls refer to mobility section. PT-Balance Assessment Sitting Balance and Reactions Static Sitting Balance Ability Good Dynamic Sitting Balance Ability Fair Standing Balance and Reactions Static Standing Balance Ability Fair Dynamic Standing Balance Ability Fair Device Used FWW M5 PT-IP Objective Assessments Start: 10/01/18 12:26 Freq: NEEDED Status: Active Protocol: Document 10/01/18 11:45 AB (Rec: 10/01/18 12:41 AB [id number]) Orientation Orientation/Cognition Level of Alertness Alert Orientation Name Age Situation Language Function Ability Hard of Hearing Safety Awareness Decreased Safety Awareness Memory Description Short Term Impaired Scientific 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 Project Leader Impaired Gross Range of Motion Lower Extremity ROM Assessment Within Functional Limits Strength Lower Extremity Strength Assessment Left Impaired Knee 3+/5 Muscle Tone Muscle Tone WNL Yes M6 PT-IP Treatment Start: 10/01/18 12:26 Freq: NEEDED Status: Active Protocol: Document 10/01/18 11:45 AB (Rec: 10/01/18 12:41 AB [id number]) Physical Therapy Treatment Education Education Provided Safety M7 PT-IP Assessment and Plan Start: 10/01/18 12:26 Freq: NEEDED Status: Active Protocol: Document 10/01/18 11:45 AB (Rec: 10/01/18 12:41 AB [id number]) PT Summary Assessment and Plan Potential Rehabilitation Potential Fair Status of Condition at Evaluation Evolving Summary Impairments Pain ROM Strength Balance Coordination Sensation Tone Cognition Bed Mobility Transfers Gait Activity Tolerance Assessment Summary pt requiring min A with mobility and unable to tolerate much activity and c/o not feeling well. pt require SNF rehab to improve strength and activity tolerance prior to d/c home. Goals Bed Mobility Goal Independent Transfer Goal Standby Assistance Front Wheeled Walker Gait Goal Standby Assistance Front Wheel Walker Gait Distance 100 Days to Meet Goals 5 Frequency of Treatment Frequency Of Treatment Once a Day Treatment Plan Physical Therapy Treatment Plan Bed Mobility Training Transfer Training Gait Training Therapeutic Exercise Balance Retraining Discharge Planning Hot or Cold Pack Neuromuscular Re-ed Coordination Retraining Manual Therapy Other Recommendations and Next Treatment ambulation Focus Recommendations To Nursing Amount of Assist Needed 1 Person Assist Discharge Recommendations PT Discharge Recommendations SNF Rehab Equipment Needed for Home Before FWW Discharge
[2018-10-01] MEDS: PHYTONADIONE (VIT K1) 5 MG TABLET 2.5 MG PO (12:11)
[2018-10-01] MEDS: POTASSIUM CHLORIDE 60 MEQ in SODIUM CHLORIDE 0.9% 500 ML 88.333 ML IV (12:11)
--- NOTE | 2018-10-01 20:33 | PC.NURSE ---
Christie has requested to rest tonight, sleeping, turning self [id number]. VS stable. Tele Afib. She sat up for dinner & took one bite of mashed potatoes & spit it into blue emesis bag. Zofran and Percocet given per her request. C/o lower back pain 03/05. IVF infusing to right hand with no difficulty, site patent with no redness or swelling. She is oriented to situation & using call button appropriately for needs.
[2018-10-01] MEDS: ACETAMINOPHEN 325 MG TABLET 650 MG PO (22:34)
[2018-10-02] VITALS (8 sets, daily range): BP systolic 113–145; BP diastolic 71–94; PULSE 82–110; RESP 16–19; TEMP 36.6–36.8; O2SAT 91–98
[2018-10-02] MEDS: ONDANSETRON 4 MG ODT PO ×3 (01:06→21:05)
[2018-10-02] MEDS: OXYCODONE/ACETAMINOPHEN 5/325 TABLET 1 TAB PO ×4 (01:08→23:26)
[2018-10-02] MEDS: LORazepam 0.5 MG TABLET PO (01:09)
[2018-10-02] MEDS: SODIUM CHLORIDE 0.9% 1,000 ML 125 ML IV ×2 (01:11→10:54)
--- NOTE | 2018-10-02 07:58 | PM.PN.1 ---
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 The patient is sitting up in bed comfortably and eating her morning breakfast. She endorses low-back pain related to her scoliosis which is not reproducible with palpation. She continues to endorse intermittent nausea and vomiting. Discussed hyperemesis cannabis in detail and recommended abstaining from smoking marijuana or consuming any marijuana products altogether. She denies headache, chest pain, shortness of breath, abdominal pain, fever, chills, dysuria, diarrhea or constipation. She is quite emaciated and cachectic in appearance. She reports she has had significant weight loss over the last 1 year but has been gradual over the last 3 years total. Exam Vital Signs (past 8 hours): - 10/02/18 00:55 10/02/18 03:35 Temperature 97.9 F Pulse Rate 93 H Respiratory Rate 19 Blood Pressure 120/72 Pulse Oximetry 93 95 Oxygen Delivery Method Room Air Oxygen Flow Rate 0 Narrative Exam Narrative: General: Elderly cachectic and emaciated female sitting in bed, appears comfortable, appropriately interactive. HEENT: Normocephalic, atraumatic. External ears without defect. Pupils equal, round, and reactive to light. Anicteric sclerae, moist conjunctivae, and no lid lag. Neck: Supple with full range of motion. No lymphadenopathy or thyromegaly. Cardiovascular: Regular rate and rhythm without murmurs, rubs, or gallops appreciated Pulmonary: Difficult to auscultate heart sounds due to inability to make contact with skin as patient is thin and ribs protrude. Appears clear to auscultation bilaterally without crackles, wheezes, or rhonchi. Normal respiratory effort with no use of accessory muscles. Abdomen: Soft, scaphoid, bowel sounds present, non-tender, nondistended. No hepatosplenomegaly or masses appreciated. Extremities: No clubbing, cyanosis, or edema. Skin: Normal temperature, turgor, and texture; no rash, ulcers, or subcutaneous nodules appreciated. Neurological: Cranial nerves grossly intact. Pill rolling tremor, cogwheel rigidity, tardive dyskinesia/repetitive mouth movement all consistent with parkinsonian like presentation. Psychiatric: Normal mood and affect. Alert and oriented to person, place, and time. 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 1. Acute severe dehydration secondary to acute on chronic cyclic vomiting syndrome, present on admission. Active. -Patient has history of cannabis use and there is a high possibility that this represents hyperemesis cannabis in conjunction with Parkinson's disease with autonomic dysfunction. Differential diagnosis is vast and also includes: psychogenic vs smoldering malignant process. -Patient intially hemoconcentrated with elevated BUN/creatinine ratio. -Continue to rehydrate with normal saline 125 mL/hr. -Abdominal CT 13 mm caliber of the common bile duct but a gallbladder is not seen and metallic surgical clips are not identified but patient reports history of cholecystectomy, therefore, CBD normal in caliber. -Abdominal ultrasound demonstrated normal viscera and no acute process. -Previous EGD/colonoscopy 3 years ago in [place], [place] reportedly normal. -Ordered nuclear medicine gastric emptying study, pending. 2. Acute on chronic severe protein calorie malnutrition with severe failure to thrive, present on admission. Active. -Patient presented with weight of 38 kg/BMI 14 placing her in less than 60% of the 50th percentile for weight and age per [facility] Guidelines for severe failure to thrive. -Patient with longstanding history of nausea and vomiting with chronic use of Reglan and Zofran. -Continue Zofran and added Ativan 0.5 mg p.o. 3 times daily as needed. Discontinued Reglan as patient has signs of tardive dyskinesia. -Will rehydrate as above. -Ordered high-calorie diet. -Consulted dietitian for evaluation and treatment who also has assessed the patient with severe acute protein calorie malnutrition. -Ordered speech therapy evaluation and treatment, pending. 3. Acute transaminitis, present on admission. Resolved. -Patient with elevated transaminases and with CBD of 13 mm without evidence calculi or blockage on CT exam and status post cholecystectomy so CBD normal in caliber. -Likely secondary to acute dehydration and biliary stasis. -Ordered acute hepatitis panel, pending. 4. Acute on chronic leukocytosis, present on admission. Acute portion resolved. -No apparent signs infection (Afebrile, UA negative, abdomen soft, procalcitonin<0.05, CT negative). Due to chronic nausea and vomiting acute portion likely related to stress response and dehydration. -Review of WBC trend reveals WBC in the 14 range chronically. Continue to monitor WBC daily. 5. Paroxysmal atrial fibrillation on chronic anticoagulation, present on admission. Active. -History of atrial fibrillation on chronic warfarin therapy 2 mg daily -Initial INR supratherapeutic at 4.2. Trending up to 5.0 today likely due to vitamin K deficiency from acute on chronic protein malnutrition. Received vitamin K 2.5 mg yesterday. INR today 2.2 and will restart warfarin. Discussed with her PCP, Dr. Briceno, who indicated he would continue warfarin and place her on low-dose vitamin K if her INR continues to trend up as she is high risk of CVA. 6. History of CVA. -History of stroke with expressive aphasia and dysarthria not appreciated on exam. -Patient does have signs of tardive dyskinesia and discontinued Reglan (possibly has been on in past) indefinitely as above. 7. Chronic back pain, present on admission. Stable. -Patient was severe scoliosis and chronic back pain. -Continue Oxycodone-acetaminophen 5/325 every every 6 hr as needed for pain. -Started bowel regimen with Colace 100 mg twice daily and MiraLax 17 g daily. 8. Probable Parkinsons, chronic, present on admission. Stable. -Patient will need outpatient neurology consultation. Disposition: Patient likely to discharge in the next 1-2 days once adequately rehydrated, transaminitis resolves and nausea and vomiting are improved with close outpatient follow-up. Objective Labs Result Diagrams: 10/02/18 08:30 10/02/18 08:30 Quality VTE Deep Vein Thrombosis/Pulmonary Embolism Present on Admission: No
[2018-10-02 08:57] LABS: INR 2.2 (0.9-1.3)
[2018-10-02 09:19] LABS: Add Manual Diff / Slide Review NO; Basophils Absolute Auto 0 /uL (0-100); Basophils Percent Auto 0.1 % (0-2); Eosinophils Absolute Auto 0 /uL (0-450); Eosinophils Percent Auto 0.2 % (2-4); Hematocrit 33.9 % (36-46); Hemoglobin 11.6 g/dL (12.0-16.0); Lymphocytes Absolute Auto 1400 /uL (1100-4500); Lymphocytes Percent Auto 9.8 % (25-40); Mean Corpuscular HGB Conc 34.1 % (30-36); Mean Corpuscular Hemoglobin 31.4 PG (26-34); Monocytes Absolute Auto 900 /uL (0-900); Monocytes Percent Auto 6.1 % (3-14); Neutrophils Absolute Auto 11800 /uL (1500-7000); Neutrophils Percent Auto 83.8 % (50-75); Platelet Count 323 X10^3/uL (150-400); Red Blood Cell Count 3.69 X10^6/uL (4.0-5.2); Red Cell Distribution Width 15.1 % (11.6-14.8)
[2018-10-02 09:25] LABS: Blood Urea Nitrogen 12 mg/dL (7-17); Carbon Dioxide 20 mmol/L (22-32); Chloride 111 mmol/L (98-107); Estimated Glomerular Filt Rate > 60.0 mL/min (>60); Glucose 97 mg/dL (80-110); HEMOLYSIS < 15 (0-50); Magnesium 1.4 mg/dL (1.6-2.3); Potassium 3.5 mmol/L (3.4-5.1); Sodium 137 mmol/L (137-145)
[2018-10-02] MEDS: AMIODARONE 200 MG TABLET PO (10:47)
[2018-10-02] MEDS: PARoxetine 10 MG TABLET PO (10:47)
--- NOTE | 2018-10-02 12:54 | CM.DPC ---
Addendum entered by Shala Morejon R.N. 10/02/18 15:54: Was able to talk to daughter, Nya, who has experience as a palliative care nurse. Gave her a blank POLST form, for she has POA directives, but not a POLST. Discussed [facility], she is wanting her mother to go there. Let them know that they are expecting her. Discussed potential feeding tube as well, since patient is nutritionally challenged . Stated, this has to be my mom's decision, just like hospice. She feels that her mother is not ready for hospice, but she is pretty sure that she would qualify. Let her know that this mental health case manager would update her on any changes. Patient sleeping at this time. Original Note: DCP Cont: Left message for daughter, Charity, to touch base with her on plan. Had already spoke to Adeel, storage and backup administrator at [facility] who stated that they can accept her. Patient not yet stable for discharge yet today, but if tomorrow, [facility] can accept. P: DCP to continue to assess. Plan is for [facility] for short stay before going home with daughter. Shala Morejon RN/Character Actress
--- NOTE | 2018-10-02 13:32 | OT.IP.EVAL ---
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 (09/29/18) Personal history of transient ischemic attack (TIA), and cerebral infarction without residual deficits (09/29/18) Past Medical History (Last Updated 09/30/18 @ 03:08 by JACKIE Yu) Atrial fibrillation with RVR (Acute) Chronic anticoagulation (Acute) History of stroke (Acute) Expressive aphasia (Acute) Chronic back pain (Acute) Atrial fibrillation (Acute) CVA (cerebrovascular accident) (Acute) Dysarthria (Acute) Smoker (Acute) Surgical History (Last Reviewed 09/30/18 @ 02:32 by JACKIE Yu) Hx of cholecystectomy (Acute) Occupational Therapy Inpatient Evaluation/Re-Eval M1 PT/OT-IP Prior Functional Status Start: 10/01/18 12:26 Freq: NEEDED Status: Active Protocol: Document 10/02/18 13:32 PJM (Rec: 10/02/18 17:05 PJJean [id number]) Medical Review Prior Functional Status Medical History Reviewed Yes Communication WNL although APACHE interferes at times, pt states she cannot afford hearing aids Mobility and Gait stated that she was independent with all mobilities and ambulation without AD but was needing assistance for the last week due to her not feeling well Activities of Daily Living and IADL's Pt states she was independent with all self care including showering until 1 week ago then daughter assisting pt with dressing and bathing due to general weakness. Pt had fall off toilet just prior to admit and has skin tears on R forearm that are bandaged. Prior Functional Level (Other details) Daughter, son and law assist with all IADLS and transport. NO family here to confirm home situation. Social History Household Members family children Living Arrangements House Number of Floors (Floors) One Floor Number of Stairs To Enter/Railing? no steps to enter Home Environment Standard Height Toilet Walk in Shower Home Equipment Shower Seat with Backrest Hand Held Shower Grab Bars Near Toilet Grab Bars In Shower Employment Status Retired Additional Social History Comment Pt's daughter is retired per pt. M2 OT-IP Current Condition Start: 10/02/18 16:43 Freq: Status: Active Protocol: Document 10/02/18 13:32 PJM (Rec: 10/02/18 17:05 PJ [id number]) Occupational Therapy Current Condition Current Condition Evaluation Date 10/02/18 Treatment Diagnosis decr'd self care,mobility DX: possible hyperemesis cannabis, severe failure to thrive Diagnosis Onset Date 09/29/18 Post Operative Precautions Other Precautions fall risk, bed/chair alarm M3 OT- IP Subjective and Pain Start: 10/02/18 16:43 Freq: Status: Active Protocol: Document 10/02/18 13:32 PJM (Rec: 10/02/18 17:05 PJ NRTM) OT- Subjective Occupational Therapy Visit Type Type Initial Evaluation Visit Start Time 12:05 Visit Stop Time 13:32 Notes Pt awake and alert; agreeable to tx. Occupational Therapy Visit Comments Patient/Caregiver Goals to get stronger and go back to daughter's home when able OT Pain Assessment Pain When Pain Assessed After Treatment Pain Present Pain Present Pain Reported Location Back Intensity 7 Scale Used chronic LBP from scoliosis Description Aching Chronic M4 OT- IP ADL's Start: 10/02/18 16:43 Freq: Status: Active Protocol: Document 10/02/18 13:32 PJM (Rec: 10/02/18 17:05 PJ NRTM) OT [id number] Comments OT Self-Feeding Comments pt was NPO for study this AM and has not yet resumed diet OT ADL-Grooming General Evaluation Grooming Ability Contact Guard Assistance Comments OT Grooming Comments pt declined face washing or hair care this session OT ADL-Oral Care General Eval Oral Care Ability Contact Guard Assistance Devices Oral Care Devices Sponge/Foam Tipped Swab Comments Oral Care Comments CGA for standing balance needed; pt does not wear her dentures OT ADL-Dressing General Eval Lower Body Dressing Ability Standby Assistance Areas Needing Assistance Socks OT ADL-Toileting General Evaluation Toileting Ability Contact Guard Assistance Areas Needing Assistance Manage Clothing Perform Perineal Hygiene Devices Toileting Assistive Devices Grab Bars Raised Toilet Seat OT ADL-Bathing Comments OT Bathing Comments to be assessed as activity tolerance improves M5 OT- IP IADL's Start: 10/02/18 16:43 Freq: Status: Active Protocol: Document 10/02/18 13:32 PJM (Rec: 10/02/18 17:05 [facility] [id number]) OT-Instrumental Activities of Daily Living Deficits IADL Deficits Identified Deficits Home Safety Awareness Awareness of Need for Assistance at Home Good Awareness Medication Management Medication Management Caregiver Provides Supervision Money Management Money Management Caregiver Provides Supervision Meal Preparation Meal Preparation Caregiver Provides Assist Urban Sociologist Urban Sociologist Caregiver Provides Assist Driving Driving Caregiver Provides Assist M6 OT- IP Functional Cognition Start: 10/02/18 16:43 Freq: Status: Active Protocol: Document 10/02/18 13:32 PJM (Rec: 10/02/18 17:05 [facility] NRTM) Cognitive Factors Limiting Selfcare Function Cognitive Ability Level of Alertness Alert Patient Orientation Name Month Year Place Situation Attention Span Ability Capable of Focused Attention Ability to Follow Commands Able to Follow One Step Commands Problem Solving Ability Needs Assist to Identify Solutions Cognitive Comments Cognitive Assessment Comments Pt has decreased insight into current medical situation; needs encouragement to increase activity level. OT- Vision and Hearing OT- Hearing Assessment OT- Hearing Assessment Hearing Impaired OT- Vision Assessment Visual Acuity WFL Glasses For Reading Vision Assessment Comments Pt states she cannot afford hearing aids. Pt denies any recent vision changes. M7 OT- IP Mobility and Balance Start: 10/02/18 16:43 Freq: Status: Active Protocol: Document 10/02/18 13:32 PJM (Rec: 10/02/18 17:05 [facility] [id number]) OT- Bed Mobility Assessment Rolling Type of Rolling Roll to Left Level of Assistance Minimal Assistance 1 Person Assistance Supine to Sit Supine to Sit Assist Minimal Assistance 1 Person Assistance Scooting Scooting to Edge of Bed Standby Assistance 1 Person Assistance OT-Transfer Assessment Sit to and From Stand Sit to and from Stand Contact Guard Assistance 1 Person Assistance Transfers Transfer Ability Contact Guard Assistance 1 Person Assistance Technique Transfer Destination Chair Toilet Transfer Technique Stand Step Pivot Devices Transfer Assistive Devices Gait Belt Front Wheeled Walker Comments Mobility Comments Pt needs close CGA for balance . OT- Gait Assessment Gait Gait Assistance Required: Contact Guard Assist Minimum Assistance Distance (Feet) 30 Assistive Devices Assistive Device Gait Belt Front Wheeled Walker Comments Gait Ability Comments Pt walked from bed to sink, stood 2-3 min at sink, then walked to bathroom for seated rest on toilet. Then return to recliner. She is unsteady especially on turns and needs min assist to guide FWW. OT- Balance Assessment Sitting Balance and Reactions Static Sitting Balance Ability Good Dynamic Sitting Balance Ability Fair Standing Balance and Reactions Static Standing Balance Ability Fair Dynamic Standing Balance Ability Fair M8 OT- IP Objective Assessments Start: 10/02/18 16:43 Freq: Status: Active Protocol: Document 10/02/18 13:32 PJM (Rec: 10/02/18 17:05 PJ [id number]) OT Gross Range of Motion Upper Extremity Range of Motion Assessment Within Functional Limits ROM Impairments B shoulder scaption limited to about 90 degrees; R clavicle more prominent than L. 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 Strength Hand Dominance Right OT- Coordination Assessment Comments Coordination Comments R hand tremor noted when using FWW OT-Muscle Tone Assessment Muscle Tone WNL Yes OT Sensation Assessment Comments Summary Comments Pt denies sensory deficits in either UE Edema Edema Absent M9 OT- IP Assessment and Plan Start: 10/02/18 16:43 Freq: Status: Active Protocol: Document 10/02/18 13:32 PJM (Rec: 10/02/18 17:05 [facility] [id number]) OT Summary Assessment and Plan Potential Analytic Complexity at Evaluation Low Summary OT Impairments Pain Strength Balance Coordination Functional Mobility Grooming Dressing Toileting Bathing Toilet Transfers Shower Transfers Assessment Summary Low complexity OT assessment completed on this cachectic pt with severe failure to thrive and generalized weakness with possible hyperemesis cannabis. Pt has significant performance deficits in activity tolerance and currently needs CGA to min assist for safety with all self care and functional mobility. She also has performance deficits in all standing grooming, dressing, bathing and toileting. Recommend SNF at d/c for further rehab services due to current high care needs and nutritional status. Goals Grooming Goal Standby Assistance Dressing Goal Standby Assistance Toileting Goal Standby Assistance Bathing Goal Standby Assistance Toilet Transfer Goal Standby Assistance ADA High Toilet Grab Bars Shower Transfer Goal Standby Assistance Grab Bars Patient/Caregiver Education Goal Demonstrate Energy Conservation and Pacing Days to Meet Goals 7 Frequency of Treatment Frequency Of Treatment Once a Day Treatment Plan OT Treatment Plan ADL Training Functional Mobility Patient/Family Education Discharge Planning Discharge Recommendations OT Discharge Recommendations SNF Rehab Home Equipment Needs to be determined pending progress in next rehab setting
--- NOTE | 2018-10-02 15:29 | ST.IPCSEOM ---
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 (09/29/18) Personal history of transient ischemic attack (TIA), and cerebral infarction without residual deficits (09/29/18) Past Medical History (Last Updated 09/30/18 @ 03:08 by JACKIE Yu) Atrial fibrillation with RVR (Acute Medical) Chronic anticoagulation (Acute Medical) History of atrial fibrillation on chronic warfarin therapy 2 mg daily INR supratherapeutic at 4.2 Will hold warfarin and recheck INR in the morning History of stroke (Acute Medical) History of stroke with expressive aphasia and dysarthria not appreciated on exam today Expressive aphasia (Acute Medical) Chronic back pain (Acute Medical) Patient was severe scoliosis and chronic back pain Oxycodone-acetaminophen 5/325 every 6 hr as needed for pain Atrial fibrillation (Acute Medical) CVA (cerebrovascular accident) (Acute Medical) Dysarthria (Acute Medical) Smoker (Acute Medical) Speech-Language Pathology Swallow 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 Allred Reason for Referral Swallow eval Setting Assessment Location Acute Care Visit Type Note Type Initial Evaluation Patient Information Identification Type Name History Patient was brought in for nausea and vomiting likely related to severe dehydration vs hyperemesis cannabis as patient has history of cannabis use. She has a history of CVA with residual dysarthria and aphasia. Her medical history is also significant for gradual 3 year weight loss with significant weight loss in the last year, atrial fibrillation on long- term anticoagulation with warfarin, chronic back, depression, and chronic abdominal pain with nausea and vomiting x3 years. Physician note reports neurological exam revealed pill rolling tremor, cogwheel rigidity, tardive dyskinesia/repetitive mouth movement all consistent with parkinsonian like presentation and a neurology referral will be made at time of discharge. Subjective Observations Patient was asleep when I entered the room. Her daughter and son-in-law were present. She awoke to my voice and agreed to sit up and participate in a swallow evaluation. Her speech was 100 % intelligible. Evaluation Liquids Trialed Thin Solids Trialed Puree Regular Administration Type Straw Self-Feeding Oral Impairment WFL Oral Phase Comments Patient is edentulous. She wears dentures, but does not have them here at the hospital with her and stated she did not want them brought here. Her daughter reports she typically eats softer foods which she does need her dentures for. Patient's uvula was accidentally cut off during a tonsillectomy when she was 6 years old. Oral motor examination was within functional limits with the exception of absence of a uvula. Patient self fed trials of water and milk from a straw, jell-o and ovi crackers. Oral prep and oral phase were within functional limits. No oral residue observed follow trials. Pharyngeal Impairment WFL Pharyngeal Phase Comments Patient reports she has had swallow issues since she was 6 years old. When asked about the type of difficulty she has , she was unable to verbalize any specific issues. She did say she eats slowly and her throat isn't ready to swallow until it's ready to swallow. Her daughter denies any difficulty or signs or symptoms of aspiration during meals. Patient consumed all trials without signs of aspiration. She did not have history of dysphagia following her stroke. She does not have a history of pneumonia. No concern for aspiration at this time. Pharyngeal phase appears WFL. 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 She does not show signs of aspiration. Diet Recommendations Liquids Order Thin Diet Order Regular Medication Recommendations As Tolerated Treatment Plan Appropriate for Therapy No Therapy Recommendations No signs of oral or pharyngeal dysphagia. Recommend family assist patient in ordering meals during hospital stay to ensure patient is brought softer foods she can manage without her dentures.
--- NOTE | 2018-10-02 15:59 | PT.IPTN ---
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 (09/29/18) Personal history of transient ischemic attack (TIA), and cerebral infarction without residual deficits (09/29/18) Physical Therapy Treatment Note M2 PT-IP Current Condition Start: 10/01/18 12:26 Freq: NEEDED Status: Active Protocol: Document 10/01/18 11:45 AB (Rec: 10/01/18 12:41 AB [id number]) Physical Therapy Current Condition Current Condition Evaluation Date 10/01/18 Treatment Diagnosis dehydration; difficulty in walkinig Onset Date 09/29/18 Precautions Other Precautions falls M3 PT-IP Subjective Start: 10/01/18 12:26 Freq: NEEDED Status: Active Protocol: Document 10/02/18 15:58 LJ (Rec: 10/02/18 15:59 LJ [id number]) Subjective Physical Therapy Visit Type Type Patient Refusal Notes Family in room. Pt sleeping. Daughter reports that pt has been up several times to use the toilet. Requested that pt be allowed to sleep. M4 PT-IP Mobility and Gait Start: 10/01/18 12:26 Freq: NEEDED Status: Active Protocol: Document 10/01/18 11:45 AB (Rec: 10/01/18 12:41 AB [id number]) PT-Bed Mobility Assessment Supine to Sit Supine to Sit Standby Assistance Scooting Scooting to Edge of Bed Standby Assistance PT-Transfer Assessment Sit to and From Stand Sit to and from Stand Contact Guard Assistance Equipment Transfer Assistive Device Gait Belt Front Wheeled Walker Orthotic/Prosthetic Devices or Brace: No Transfers Transfer Destination Bedside Commode Transfer Technique pt ambulated to the bedside commode using FWW Transfer Ability Level of Assist Minimal Assistance Use of Upper Extremities Comments Mobility Comments pt requested to use the toilet but refused to walk to the toilet and prefers to use the bedside commode. pt ambulated from the bed to the bedside commode using FWW min A and cues. pt can be impulsive. pt was able to maintain standing balance using FWW for support min A while managing pants. pt completed sit to stand from bedside commode CGA and ambulated the chair using FWW min A ~ 10 ft. set up pt for lunch. Gait Assessment Gait Gait Assistance Required: Minimum Assistance Distance (Feet) 15 Able to Maintain Weight Bearing Status Yes During Gait Assistive Devices Assistive Device Gait Belt Front Wheeled Walker Orthotic/Prosthetic Devices or Brace: No Gait Deviations General Gait Pattern Antalgic Decreased Stride Length Decreased Feet Clearance Factors Limiting Gait Function Factors Limiting Gait Function Decreased Activity Tolerance Decreased Strength Poor Balance Poor Safety Awareness Comments Gait Comments pls refer to mobility section. PT-Balance Assessment Sitting Balance and Reactions Static Sitting Balance Ability Good Dynamic Sitting Balance Ability Fair Standing Balance and Reactions Static Standing Balance Ability Fair Dynamic Standing Balance Ability Fair Device Used FWW M5 PT-IP Objective Assessments Start: 10/01/18 12:26 Freq: NEEDED Status: Active Protocol: Document 10/01/18 11:45 AB (Rec: 10/01/18 12:41 AB [id number]) Orientation Orientation/Cognition Level of Alertness Alert Orientation Name Age Situation Language Function Ability Hard of Hearing Safety Awareness Decreased Safety Awareness Memory Description Short Term Impaired Custodial Impaired Gross Range of Motion Lower Extremity ROM Assessment Within Functional Limits Strength Lower Extremity Strength Assessment Left Impaired Knee 3+/5 Muscle Tone Muscle Tone WNL Yes M6 PT-IP Treatment Start: 10/01/18 12:26 Freq: NEEDED Status: Active Protocol: Document 10/01/18 11:45 AB (Rec: 10/01/18 12:41 AB [id number]) Physical Therapy Treatment Education Education Provided Safety M7 PT-IP Assessment and Plan Start: 10/01/18 12:26 Freq: NEEDED Status: Active Protocol: Document 10/01/18 11:45 AB (Rec: 10/01/18 12:41 AB [id number]) PT Summary Assessment and Plan Potential Rehabilitation Potential Fair Status of Condition at Evaluation Evolving Summary Impairments Pain ROM Strength Balance Coordination Sensation Tone Cognition Bed Mobility Transfers Gait Activity Tolerance Assessment Summary pt requiring min A with mobility and unable to tolerate much activity and c/o not feeling well. pt require SNF rehab to improve strength and activity tolerance prior to d/c home. Goals Bed Mobility Goal Independent Transfer Goal Standby Assistance Front Wheeled Walker Gait Goal Standby Assistance Front Wheel Walker Gait Distance 100 Days to Meet Goals 5 Frequency of Treatment Frequency Of Treatment Once a Day Treatment Plan Physical Therapy Treatment Plan Bed Mobility Training Transfer Training Gait Training Therapeutic Exercise Balance Retraining Discharge Planning Hot or Cold Pack Neuromuscular Re-ed Coordination Retraining Manual Therapy Other Recommendations and Next Treatment ambulation Focus Recommendations To Nursing Amount of Assist Needed 1 Person Assist Discharge Recommendations PT Discharge Recommendations SNF Rehab Equipment Needed for Home Before FWW Discharge
--- NOTE | 2018-10-02 17:08 | PC.NURSE ---
Addendum entered by Reyna Baker R.N. 10/02/18 22:34: Unable to obtain IV site after several attempts from several departments. Pt refuses any further attempts. Order for midline in am. Holding Mg rider at this time. Original Note: Addendum entered by Reyna Baker R.N. 10/02/18 21:14: Pt watching TV. Med w/Tylenol for back discomfort. Tele showing a-fib per ICU staff. Mg 1.9, order for Mg 2mg rider. Call light w/in reach, bed alarm on for pt safety. Continue w/plan of care. Original Note: Addendum entered by Reyna Baker R.N. 10/02/18 17:47: Tele shows a-fib peer ICU staff Original Note: Pt watching TV. Med at 1710 for discomfort. SpO2 95% RA. Tele in place. Call light w/in reach, bed alarm on for pt safety.
[2018-10-02 19:21] LABS: Alanine Aminotransferase 432 IU/L (9-52); Albumin 2.6 g/dL (3.5-5.0); Albumin Globulin Ratio 0.9 (1.0-2.8); Alkaline Phosphatase 78 U/L (38-126); Aspartate Aminotransferase 105 IU/L (14-36); Bilirubin Total 0.6 mg/dL (0.2-1.3); Bilirubin Unconjugated 0.4 mg/dL (0.0-1.1); Globulin 2.8 g/dL (1.7-4.1); HEMOLYSIS < 15 (0-50); Total Protein 5.4 g/dL (6.3-8.2)
[2018-10-02] MEDS: ACETAMINOPHEN 325 MG TABLET 650 MG PO (21:04)
[2018-10-02] MEDS: MAGNESIUM SULFATE 2 GM/50 ML PIGGYBACK IV (21:26)
[2018-10-02] MEDS: WARFARIN 2 MG TABLET PO (21:26)
[2018-10-03 00:21] VITALS: BP 131/70; PULSE 89; RESP 16; TEMP 36.8; O2SAT 97
[2018-10-03] MEDS: ONDANSETRON 4 MG ODT PO (03:21)
[2018-10-03] MEDS: LORazepam 0.5 MG TABLET PO (04:17)
[2018-10-03 05:26] VITALS: BP 137/99; PULSE 95; RESP 16; TEMP 36.5; O2SAT 96
[2018-10-03] MEDS: PANTOPRAZOLE 20 MG TABLET PO (05:36)
[2018-10-03 06:17] LABS: Add Manual Diff / Slide Review NO; Basophils Absolute Auto 0 /uL (0-100); Basophils Percent Auto 0.3 % (0-2); Eosinophils Absolute Auto 0 /uL (0-450); Eosinophils Percent Auto 0.3 % (2-4); Hematocrit 32.9 % (36-46); Hemoglobin 11.3 g/dL (12.0-16.0); Lymphocytes Absolute Auto 1500 /uL (1100-4500); Lymphocytes Percent Auto 11.5 % (25-40); Mean Corpuscular HGB Conc 34.3 % (30-36); Mean Corpuscular Hemoglobin 31.3 PG (26-34); Mean Corpuscular Volume 91.3 fL (80-100); Monocytes Absolute Auto 1000 /uL (0-900); Monocytes Percent Auto 7.6 % (3-14); Neutrophils Absolute Auto 10200 /uL (1500-7000); Neutrophils Percent Auto 80.3 % (50-75); Platelet Count 319 X10^3/uL (150-400); Red Cell Distribution Width 15.1 % (11.6-14.8); White Blood Cell Count 12.7 X10^3/uL (4.5-11.0)
[2018-10-03 06:25] LABS: INR 1.7 (0.9-1.3)
[2018-10-03 06:33] LABS: Alanine Aminotransferase 340 IU/L (9-52); Albumin 2.8 g/dL (3.5-5.0); Alkaline Phosphatase 83 U/L (38-126); Aspartate Aminotransferase 55 IU/L (14-36); BUN Creatinine Ratio 21.7 (6-22); Bilirubin Total 0.8 mg/dL (0.2-1.3); Blood Urea Nitrogen 13 mg/dL (7-17); Calcium 8.1 mg/dL (8.4-10.2); Carbon Dioxide 21 mmol/L (22-32); Chloride 107 mmol/L (98-107); Estimated Glomerular Filt Rate > 60.0 mL/min (>60); Globulin 2.8 g/dL (1.7-4.1); Glucose 104 mg/dL (80-110); HEMOLYSIS < 15 (0-50); Magnesium 1.4 mg/dL (1.6-2.3); Potassium 3.2 mmol/L (3.4-5.1); Sodium 135 mmol/L (137-145); Total Protein 5.6 g/dL (6.3-8.2)
--- NOTE | 2018-10-03 07:50 | PM.DS.1 ---
History of Present Illness Chief complaint: Abd pain, N/V Narrative: This is a 74-year-old female patient with a prior history atrial fibrillation on long-term anticoagulation with warfarin, CVA, expressive aphasia, dysarthria, chronic back, and depression presents to the ER today for several days of nausea vomiting. The patient is a difficult historian however reports that she has not been able to eat or drink fluids. She takes Reglan and Zofran home has done so for 3-4 years. She lives with her daughter and son-in-law were not available for additional history. She reports having nausea is constant but will wax and wane and describes ?a lot? of abdominal pain related to frequent vomiting. She reports no complaints of fevers or chills, headaches or dizziness, chest pain or shortness of breath and denies diarrhea or constipation. In the ER the patient underwent an abdominal CT which was significant for dilated common duct with no evidence of calculi. Exam noted nonvisualization of gallbladder which by history has been surgically removed. The laboratory analysis the patient has evidence of hemoconcentration with an H&H of 16.9 and hematocrit of 50.6. She does have an elevated white count 19 2 and platelets of 511. She has a a procalcitonin 0 11. On chemistry she has a BUN and creatinine of 62 and 1.2 respectively. She also demonstrates elevated transaminases with AST of 641, ALT of 1306, alkaline phosphatase 533. Her lipase within normal range. She has a supratherapeutic INR at 4.1 Discharge Providers Date of admission: 09/29/18 16:04 Consults: 09/29/18 16:03 Consult to Physician Routine Comment: Consulting Provider: Simin Allred Reason for consultation: admission Has provider been notified: Yes 09/29/18 16:38 Consult to Dietitian, Adult Routine Comment: Reason For Exam: failure to thrive with recent wt loss 09/29/18 22:30 Consult to Dietitian, Adult Routine Comment: Reason For Exam: uderweight, BMI 14.8 Consult to Discharge Planning Routine Comment: 10/01/18 10:31 Consult to Occupational Therapy Evaluate & Treat Comment: Physician Instructions: Evaluate and treat Consult to Physical Therapy Evaluate & Treat Comment: Physician Instructions: Evaluate and Treat 10/02/18 14:42 Consult to Speech Therapy Evaluate & Treat Comment: parkinsons, anorexia, no teeth Physician Instructions: Evaluate and treat Discharge provider: Dickson Cramer MD Discharge Date: 10/03/18 Summary Discharge Diagnosis: 1. Acute dehydration secondary to vomiting 2. Chronic cyclic vomiting, rule out hyperemesis cannabis syndrome 3. Acute on chronic severe protein calorie malnutrition 4. Acute transaminitis, resolved 5. Chronic leukocytosis 6. Warfarin over anticoagulation 7. Paroxysmal atrial fibrillation 8. Chronic opioid dependency for back pain 9. Parkinsonism, possibly iatrogenic due to chronic use of metoclopramide Procedures: 1. Abdomen and pelvic CT with contrast:A distal common bile duct calculus is not seen. There is a 13 mm caliber of the common bile duct but a gallbladder is not seen and metallic surgical clips are not identified. This may reflect post-cholecystectomy change. Please correlate with the patient for whether the gallbladder has been resected. Correlation with liver function tests likely would be warranted if the gallbladder remains in place but is contracted in a position that is not visible by CT scanning. Convex leftward scoliosis is prominent in this patient but no acute spine disease is suspected. No intestinal obstruction or perforation is seen, no renal or ureteral calculus or urinary tract obstruction is found. 2. Abdominal ultrasound:Cholecystectomy. The common bile duct measures near the upper limits of normal for a post cholecystectomy patient. 3. Gastric emptying study:The stomach has normal size, morphology, and position. There is normal emptying of solid gastric contents from the stomach by visual inspection. No gastroesophageal reflux is visualized. The percentage of tracer retained at specific time points are as follows: Time point Percent gastric retention Normal range 30 minutes 36% 70% or more 1 hour 15% 30% to 90% IMPRESSION: Abnormally rapid gastric emptying. Hospital Course: Patient admitted for primary reason of severe dehydration due to exacerbation of cyclic vomiting syndrome. She was treated supportively with IV hydration and Zofran and Ativan to control the nausea. The Ativan low dose in oral form seems helpful for the nausea. We discontinued metoclopramide due to patient has developed significant tremor over the past few years which may be medication related parkinsonism. We have concerns the vomiting may be secondary to chronic use of emesis resulting in hyperemesis cannabis syndrome. Patient has been advised to discontinue use of cannabis. She had multiple studies including abdomen and pelvis CT scan and ultrasound which were unremarkable. CT showed 13 mm CBD which is normal for person with resected gallbladder. She had gastric emptying study which actually showed very rapid gastric emptying, significance of rapid gastric emptying unclear in setting of cyclic vomiting. Her TSH was 2.40, normal. She had supratherapeutic INR on admission, warfarin held, then restarted on 10/02/2018. She had mild hypokalemia and received additional oral potassium replacement prior to discharge. Patient has not had any further vomiting in previous 48 hr and appears back to baseline and ready to discharge. Unclear if she will be going home versus assisted living or [place] [facility], to be determined. She should have electrolytes and INR checked on or about October 06, 2018 Status at Discharge Overall status at discharge: patient is back to baseline Time Spent with Patient Greater than 30 minutes Exam Vital Signs (past 8 hours): - 10/03/18 00:21 10/03/18 05:26 Temperature 98.2 F 97.7 F Pulse Rate 89 95 H Respiratory Rate 16 16 Blood Pressure 131/70 137/99 H Pulse Oximetry 97 96 Oxygen Delivery Method Room Air Oxygen Flow Rate 0 Objective Labs Result Diagrams: 10/03/18 05:54 10/03/18 05:54 Labs: Laboratory Results - last 24 hr 10/02/18 10/02/18 10/02/18 08:30 08:30 08:30 WBC 14.0 H RBC 3.69 L Hgb 11.6 L Hct 33.9 L MCV 92.0 MCH 31.4 MCHC 34.1 RDW 15.1 H Plt Count 323 Neut % (Auto) 83.8 H Lymph % (Auto) 9.8 L [place] % (Auto) 6.1 Eos % (Auto) 0.2 L Baso % (Auto) 0.1 Neut # (Auto) 45527 H Lymph # (Auto) 1400 [place] # (Auto) 900 Eos # (Auto) 0 Baso # (Auto) 0 PT 26.0 H D INR 2.2 H Sodium 137 Potassium 3.5 Chloride 111 H Carbon Dioxide 20 L BUN 12 Creatinine 0.60 Estimated GFR > 60.0 BUN/Creatinine Ratio 20.0 Glucose 97 Calcium 8.0 L Magnesium 1.4 L Total Bilirubin Conjugated Bilirubin Unconjugated Bilirubin AST ALT Alkaline Phosphatase Total Protein Albumin Globulin Albumin/Globulin Ratio 10/02/18 10/03/18 10/03/18 08:30 05:54 05:54 WBC 12.7 H RBC 3.60 L Hgb 11.3 L Hct 32.9 L MCV 91.3 MCH 31.3 MCHC 34.3 RDW 15.1 H Plt Count 319 Neut % (Auto) 80.3 H Lymph % (Auto) 11.5 L [place] % (Auto) 7.6 Eos % (Auto) 0.3 L Baso % (Auto) 0.3 Neut # (Auto) 19904 H Lymph # (Auto) 1500 [place] # (Auto) 1000 H Eos # (Auto) 0 Baso # (Auto) 0 PT 20.0 H D INR 1.7 H Sodium Potassium Chloride Carbon Dioxide BUN Creatinine Estimated GFR BUN/Creatinine Ratio Glucose Calcium Magnesium Total Bilirubin 0.6 Conjugated Bilirubin 0.0 Unconjugated Bilirubin 0.4 AST 105 H ALT 432 H Alkaline Phosphatase 78 Total Protein 5.4 L Albumin 2.6 L Globulin 2.8 Albumin/Globulin Ratio 0.9 L 10/03/18 05:54 WBC RBC Hgb Hct MCV MCH MCHC RDW Plt Count Neut % (Auto) Lymph % (Auto) [place] % (Auto) Eos % (Auto) Baso % (Auto) Neut # (Auto) Lymph # (Auto) [place] # (Auto) Eos # (Auto) Baso # (Auto) PT INR Sodium 135 L Potassium 3.2 L Chloride 107 Carbon Dioxide 21 L BUN 13 Creatinine 0.60 Estimated GFR > 60.0 BUN/Creatinine Ratio 21.7 Glucose 104 Calcium 8.1 L Magnesium 1.4 L Total Bilirubin 0.8 Conjugated Bilirubin Unconjugated Bilirubin AST 55 H ALT 340 H Alkaline Phosphatase 83 Total Protein 5.6 L Albumin 2.8 L Globulin 2.8 Albumin/Globulin Ratio 1.0 Discharge Plan Discharge Plan Consult as needed: Dental, Hearing, Mental health, Podiatry and Vision I certify the [facility] [place] [facility] care is medically necessary on a continuing basis for any conditions for which he/ she received care during this hospitalization.: Yes The receiving facility has agreed to accept transfer and provide medical treatment.: Yes Discharge Med Rec/Prescriptions Prescriptions: New lorazepam 0.5 mg Tablet 0.5 mg PO TID PRN (Reason: nausea) Qty: 30 RF: 0 oxycodone-acetaminophen 10-325 mg tablet 1 tab PO BID Qty: 30 RF: 0 Continued paroxetine HCl 10 mg tablet 1 tab PO DAILY RF: 0 warfarin 4 mg tablet 2 mg PO QPM RF: 0 gabapentin 300 mg capsule 1 cap PO BEDTIME RF: 0 ondansetron 4 mg tablet,disintegrating 1 tab PO Q4-6H PRN (Reason: Nausea) RF: 0 metoprolol succinate 50 mg tablet extended release 24 hr 1 tab PO BID RF: 0 amiodarone 200 mg Tablet 200 mg PO DAILY RF: 0 Discontinued metoclopramide HCl [Reglan] 5 mg Tablet 5 mg PO DIRECTED PRN (Reason: Nausea) RF: 0 Follow up/Referrals: Bob Briceno MD [Non-Staff] - 1 Week Discharge Orders: Discharge (Order); Ordered 10/03/18 Ordered By: Dickson Cramer Provider Discharge Instructions Diet: Diet as Tolerated Liquid consistency: Normal/Thin Discharge Data Attending Provider: Simin Allred Admit Date/Time: 09/29/18 16:04 Quality VTE Deep Vein Thrombosis/Pulmonary Embolism Present on Admission: No
[2018-10-03 08:00] VITALS: BP 135/90; PULSE 101; RESP 20; TEMP 36.6; O2SAT 94
--- NOTE | 2018-10-03 08:00 | P.DS_ITS ---
History of Present Illness Chief complaint: Abd pain, N/V Narrative: This is a 74-year-old female patient with a prior history atrial fibrillation on long-term anticoagulation with warfarin, CVA, expressive aphasia, dysarthria, chronic back, and depression presents to the ER today for several days of nausea vomiting. The patient is a difficult historian however reports that she has not been able to eat or drink fluids. She takes Reglan and Zofran home has done so for 3-4 years. She lives with her daughter and son-in-law were not available for additional history. She reports having nausea is constant but will wax and wane and describes ?a lot? of abdominal pain related to frequent vomiting. She reports no complaints of fevers or chills, headaches or dizziness, chest pain or shortness of breath and denies diarrhea or constipation. In the ER the patient underwent an abdominal CT which was significant for dilated common duct with no evidence of calculi. Exam noted nonvisualization of gallbladder which by history has been surgically removed. The laboratory analysis the patient has evidence of hemoconcentration with an H&H of 16.9 and hematocrit of 50.6. She does have an elevated white count 19 2 and platelets of 511. She has a a procalcitonin 0 11. On chemistry she has a BUN and creatinine of 62 and 1.2 respectively. She also demonstrates elevated transaminases with AST of 641, ALT of 1306, alkaline phosphatase 533. Her lipase within normal range. She has a supratherapeutic INR at 4.1 Discharge Providers Date of admission: 09/29/18 16:04 Consults: 09/29/18 16:03 Consult to Physician Routine Comment: Consulting Provider: Simin Allred Reason for consultation: admission Has provider been notified: Yes 09/29/18 16:38 Consult to Dietitian, Adult Routine Comment: Reason For Exam: failure to thrive with recent wt loss 09/29/18 22:30 Consult to Dietitian, Adult Routine Comment: Reason For Exam: uderweight, BMI 14.8 Consult to Discharge Planning Routine Comment: 10/01/18 10:31 Consult to Occupational Therapy Evaluate & Treat Comment: Physician Instructions: Evaluate and treat Consult to Physical Therapy Evaluate & Treat Comment: Physician Instructions: Evaluate and Treat 10/02/18 14:42 Consult to Speech Therapy Evaluate & Treat Comment: parkinsons, anorexia, no teeth Physician Instructions: Evaluate and treat Discharge provider: Dickson Cramer MD Discharge Date: 10/03/18 Summary Discharge Diagnosis: 1. Acute dehydration secondary to vomiting 2. Chronic cyclic vomiting, rule out hyperemesis cannabis syndrome 3. Acute on chronic severe protein calorie malnutrition 4. Acute transaminitis, resolved 5. Chronic leukocytosis 6. Warfarin over anticoagulation 7. Paroxysmal atrial fibrillation 8. Chronic opioid dependency for back pain 9. Parkinsonism, possibly iatrogenic due to chronic use of metoclopramide Procedures: 1. Abdomen and pelvic CT with contrast:A distal common bile duct calculus is not seen. There is a 13 mm caliber of the common bile duct but a gallbladder is not seen and metallic surgical clips are not identified. This may reflect post-cholecystectomy change. Please correlate with the patient for whether the gallbladder has been resected. Correlation with liver function tests likely would be warranted if the gallbladder remains in place but is contracted in a position that is not visible by CT scanning. Convex leftward scoliosis is prominent in this patient but no acute spine disease is suspected. No intestinal obstruction or perforation is seen, no renal or ureteral calculus or urinary tract obstruction is found. 2. Abdominal ultrasound:Cholecystectomy. The common bile duct measures near the upper limits of normal for a post cholecystectomy patient. 3. Gastric emptying study:The stomach has normal size, morphology, and position. There is normal emptying of solid gastric contents from the stomach by visual inspection. No gastroesophageal reflux is visualized. The percentage of tracer retained at specific time points are as follows: Time point Percent gastric retention Normal range 30 minutes 36% 70% or more 1 hour 15% 30% to 90% IMPRESSION: Abnormally rapid gastric emptying. Hospital Course: Patient admitted for primary reason of severe dehydration due to exacerbation of cyclic vomiting syndrome. She was treated supportively with IV hydration and Zofran and Ativan to control the nausea. The Ativan low dose in oral form seems helpful for the nausea. We discontinued metoclopramide due to patient has developed significant tremor over the past few years which may be medication related parkinsonism. We have concerns the vomiting may be secondary to chronic use of emesis resulting in hyperemesis cannabis syndrome. Patient has been advised to discontinue use of cannabis. She had multiple studies including abdomen and pelvis CT scan and ultrasound which were unremarkable. CT showed 13 mm CBD which is normal for person with resected gallbladder. She had gastric emptying study which actually showed very rapid gastric emptying, significance of rapid gastric emptying unclear in setting of cyclic vomiting. Her TSH was 2.40, normal. She had supratherapeutic INR on admission, warfarin held, then restarted on 10/02/2018. She had mild hypokalemia and received additional oral potassium replacement prior to discharge. Patient has not had any further vomiting in previous 48 hr and appears back to baseline and ready to discharge. Unclear if she will be going home versus assisted living or snf, to be determined. She should have electrolytes and INR checked on or about October 06, 2018 Status at Discharge Overall status at discharge: patient is back to baseline Time Spent with Patient Greater than 30 minutes Exam Vital Signs (past 8 hours): - 10/03/18 00:21 10/03/18 05:26 Temperature 98.2 F 97.7 F Pulse Rate 89 95 H Respiratory Rate 16 16 Blood Pressure 131/70 137/99 H Pulse Oximetry 97 96 Oxygen Delivery Method Room Air Oxygen Flow Rate 0 Objective Labs Result Diagrams: 10/03/18 05:54 10/03/18 05:54 Labs: Laboratory Results - last 24 hr 10/02/18 10/02/18 10/02/18 08:30 08:30 08:30 WBC 14.0 H RBC 3.69 L Hgb 11.6 L Hct 33.9 L MCV 92.0 MCH 31.4 MCHC 34.1 RDW 15.1 H Plt Count 323 Neut % (Auto) 83.8 H Lymph % (Auto) 9.8 L [place] % (Auto) 6.1 Eos % (Auto) 0.2 L Baso % (Auto) 0.1 Neut # (Auto) 05997 H Lymph # (Auto) 1400 [place] # (Auto) 900 Eos # (Auto) 0 Baso # (Auto) 0 PT 26.0 H D INR 2.2 H Sodium 137 Potassium 3.5 Chloride 111 H Carbon Dioxide 20 L BUN 12 Creatinine 0.60 Estimated GFR > 60.0 BUN/Creatinine Ratio 20.0 Glucose 97 Calcium 8.0 L Magnesium 1.4 L Total Bilirubin Conjugated Bilirubin Unconjugated Bilirubin AST ALT Alkaline Phosphatase Total Protein Albumin Globulin Albumin/Globulin Ratio 10/02/18 10/03/18 10/03/18 08:30 05:54 05:54 WBC 12.7 H RBC 3.60 L Hgb 11.3 L Hct 32.9 L MCV 91.3 MCH 31.3 MCHC 34.3 RDW 15.1 H Plt Count 319 Neut % (Auto) 80.3 H Lymph % (Auto) 11.5 L [place] % (Auto) 7.6 Eos % (Auto) 0.3 L Baso % (Auto) 0.3 Neut # (Auto) 75168 H Lymph # (Auto) 1500 [place] # (Auto) 1000 H Eos # (Auto) 0 Baso # (Auto) 0 PT 20.0 H D INR 1.7 H Sodium Potassium Chloride Carbon Dioxide BUN Creatinine Estimated GFR BUN/Creatinine Ratio Glucose Calcium Magnesium Total Bilirubin 0.6 Conjugated Bilirubin 0.0 Unconjugated Bilirubin 0.4 AST 105 H ALT 432 H Alkaline Phosphatase 78 Total Protein 5.4 L Albumin 2.6 L Globulin 2.8 Albumin/Globulin Ratio 0.9 L 10/03/18 05:54 WBC RBC Hgb Hct MCV MCH MCHC RDW Plt Count Neut % (Auto) Lymph % (Auto) [place] % (Auto) Eos % (Auto) Baso % (Auto) Neut # (Auto) Lymph # (Auto) [place] # (Auto) Eos # (Auto) Baso # (Auto) PT INR Sodium 135 L Potassium 3.2 L Chloride 107 Carbon Dioxide 21 L BUN 13 Creatinine 0.60 Estimated GFR > 60.0 BUN/Creatinine Ratio 21.7 Glucose 104 Calcium 8.1 L Magnesium 1.4 L Total Bilirubin 0.8 Conjugated Bilirubin Unconjugated Bilirubin AST 55 H ALT 340 H Alkaline Phosphatase 83 Total Protein 5.6 L Albumin 2.8 L Globulin 2.8 Albumin/Globulin Ratio 1.0 Discharge Plan Discharge Plan Consult as needed: Dental, Hearing, Mental health, Podiatry and Vision I certify the postop hospital snf care is medically necessary on a continuing basis for any conditions for which he/ she received care during this hospitalization.: Yes The receiving facility has agreed to accept transfer and provide medical treatment.: Yes Discharge Med Rec/Prescriptions Prescriptions: New lorazepam 0.5 mg Tablet 0.5 mg PO TID PRN (Reason: nausea) Qty: 30 RF: 0 oxycodone-acetaminophen 10-325 mg tablet 1 tab PO BID Qty: 30 RF: 0 Continued paroxetine HCl 10 mg tablet 1 tab PO DAILY RF: 0 warfarin 4 mg tablet 2 mg PO QPM RF: 0 gabapentin 300 mg capsule 1 cap PO BEDTIME RF: 0 ondansetron 4 mg tablet,disintegrating 1 tab PO Q4-6H PRN (Reason: Nausea) RF: 0 metoprolol succinate 50 mg tablet extended release 24 hr 1 tab PO BID RF: 0 amiodarone 200 mg Tablet 200 mg PO DAILY RF: 0 Discontinued metoclopramide HCl [Reglan] 5 mg Tablet 5 mg PO DIRECTED PRN (Reason: Nausea) RF: 0 Follow up/Referrals: Bob Briceno MD [Non-Staff] - 1 Week Discharge Orders: Discharge (Order); Ordered 10/03/18 Ordered By: Dickson Cramer Provider Discharge Instructions Diet: Diet as Tolerated Liquid consistency: Normal/Thin Discharge Data Attending Provider: Simin Allred Admit Date/Time: 09/29/18 16:04 Quality VTE Deep Vein Thrombosis/Pulmonary Embolism Present on Admission: No
[2018-10-03] MEDS: POLYETHYLENE GLYCOL 3350 17 GM POWD.PACK PO (08:07)
[2018-10-03] MEDS: OXYCODONE/ACETAMINOPHEN 5/325 TABLET 1 TAB PO (08:07)
[2018-10-03] MEDS: PARoxetine 10 MG TABLET PO (08:07)
[2018-10-03] MEDS: AMIODARONE 200 MG TABLET PO (08:07)
[2018-10-03 08:36] LABS: Hepatitis A Antibody IgM NONREACTIVE (NONREACTIVE); Hepatitis Acute Panel Interp 0.04 (NONREACTIVE); Hepatitis B Core Antibody IgM NONREACTIVE (NONREACTIVE); Hepatitis B Surface Antigen NONREACTIVE (NONREACTIVE); Hepatitis C Antibody NONREACTIVE
[2018-10-03 09:18] VITALS: O2SAT 96
[2018-10-03] MEDS: POTASSIUM CHLORIDE 20 MEQ TAB PO (10:19)
--- NOTE | 2018-10-03 11:04 | CM.DPC ---
DCP Cont: Patient is to be discharged today to [facility]. Called Trice at [facility] to confirm berry picker time of 1300. Dr. Cramer aware that patient is going to [facility], and signed med list. Updated patient's daughter, Nya. She was aware that she would be discharged today, but was not sure of time. Did let her know, she is planning on meeting her there. Updated nurse on the floor, Ashley, for she is her primary nurse. [facility] faxed and signed med list, along with discharge summary over to [facility], received confirmation of fax. Updated white board at main nurses station of berry picker time. P: Patient is to be discharged today to [facility]. Shala Morejon RN/Clothing Man
--- NOTE | 2018-10-03 11:27 | PT.IPTN ---
Current Diagnoses Dehydration (09/29/18) Other chronic pain (09/29/18) Unspecified atrial fibrillation (09/29/18) Dorsalgia, unspecified (09/29/18) Nausea with vomiting, unspecified (09/29/18) Nonspecific elevation of levels of transaminase and lactic acid dehydrogenase [LDH] (09/29/18) manager terminal (current) use of anticoagulants (09/29/18) Personal history of transient ischemic attack (TIA), and cerebral infarction without residual deficits (09/29/18) Physical Therapy Treatment Note M2 PT-IP Current Condition Start: 10/01/18 12:26 Freq: NEEDED Status: Active Protocol: Document 10/01/18 11:45 AB (Rec: 10/01/18 12:41 AB [id number]) Physical Therapy Current Condition Current Condition Evaluation Date 10/01/18 Treatment Diagnosis dehydration; difficulty in walkinig Onset Date 09/29/18 Precautions Other Precautions falls M3 PT-IP Subjective Start: 10/01/18 12:26 Freq: NEEDED Status: Active Protocol: Document 10/03/18 11:18 SA (Rec: 10/03/18 11:27 SA [email or web address]) Subjective Physical Therapy Visit Type Type Treatment Note Visit Start Time 10:55 Visit Stop Time 11:10 Total Visit Minutes 15 Notes Pt supine in bed and agreeable to PT this AM. Physical Therapy Visit Comments Patient Comments Pt reports feeling better today and not as tired/ fatigued. Denies pain. Therapy Pain Assessment Pain When Pain Assessed At Rest Pain Present Pain Present Denied Pain M4 PT-IP Mobility and Gait Start: 10/01/18 12:26 Freq: NEEDED Status: Active Protocol: Document 10/03/18 11:18 SA (Rec: 10/03/18 11:27 SA [email or web address]) PT-Bed Mobility Assessment Rolling Type of Rolling Roll to Left Level of Assist Standby Assistance Supine to Sit Supine to Sit Standby Assistance Sit to Supine Sit to Supine Standby Assistance Scooting Scooting to Edge of Bed Standby Assistance Scooting Up and Down in Bed Standby Assistance PT-Transfer Assessment Sit to and From Stand Sit to and from Stand Contact Guard Assistance Equipment Transfer Assistive Device Gait Belt Front Wheeled Walker Orthotic/Prosthetic Devices or Brace: No Transfers Transfer Destination Bed Transfer Technique Stand Step Pivot Transfer Ability Level of Assist Contact Guard Assistance Comments Mobility Comments Pt SB with bed mobility and CGA with transfers. Fatigues rapidly and needs cues for safety and pacing. BP 135/90, HR 105-113 and 02 sats 93-98% on RA with mobility. Gait Assessment Gait Gait Assistance Required: Contact Guard Assist 1 Person Assist Distance (Feet) 65 Able to Maintain Weight Bearing Status Yes During Gait Assistive Devices Assistive Device Gait Belt Front Wheeled Walker Orthotic/Prosthetic Devices or Brace: No Gait Deviations General Gait Pattern Antalgic Decreased Stride Length Decreased Feet Clearance Factors Limiting Gait Function Factors Limiting Gait Function Decreased Activity Tolerance Decreased Strength Poor Balance Poor Safety Awareness Comments Gait Comments Gait training in room/chambers with FWW and CGA and mod cues for safety and upright posture . Pt tends to keep FWW far in front of her with forward flexed posture, able to correct with cues. PT-Balance Assessment Comments Other Balance Tests/Deviations/Treatment Sit to stands EOB<>FWW with : CGA and Mod cues for safe technique, 5x. M5 PT-IP Objective Assessments Start: 10/01/18 12:26 Freq: NEEDED Status: Active Protocol: Document 10/01/18 11:45 AB (Rec: 10/01/18 12:41 AB [id number]) Orientation Orientation/Cognition Level of Alertness Alert Orientation Name Age Situation Language Function Ability Hard of Hearing Safety Awareness Decreased Safety Awareness Memory Description Short Term Impaired Program Evaluator Impaired Gross Range of Motion Lower Extremity ROM Assessment Within Functional Limits Strength Lower Extremity Strength Assessment Left Impaired Knee 3+/5 Muscle Tone Muscle Tone WNL Yes M6 PT-IP Treatment Start: 10/01/18 12:26 Freq: NEEDED Status: Active Protocol: Document 10/03/18 11:18 SA (Rec: 10/03/18 11:27 [email or web address]) Physical Therapy Treatment Exercises Exercises Ankle Pumps Education Education Provided Safety M7 PT-IP Assessment and Plan Start: 10/01/18 12:26 Freq: NEEDED Status: Active Protocol: Document 10/03/18 11:18 SA (Rec: 10/03/18 11:27 [email or web address]) PT Summary Assessment and Plan Summary Assessment Summary Pt ready for d/c to SNF today, demonstrates improving gait/ mobility tolerance but needs cues and safety training. To continue therapy at SNF to improve activity tolerance prior to d/c home. Frequency of Treatment Frequency Of Treatment Once a Day Recommendations To Nursing Amount of Assist Needed 1 Person Assist Discharge Recommendations PT Discharge Recommendations SNF Rehab
--- NOTE | 2018-10-03 11:29 | PC.NURSE ---
Pt is ready to transfer to [facility] today at 1300. Transport arrangements made. Pt given percocet for pain control.
--- NOTE | 2018-10-03 13:25 | PC.NURSE ---
Pt taken to [facility] by cabulance - all paperwork and belongings with pt.
== END 2018-10-03 13:25 | DRG 640 ==
LOC: ED 16:03 → AC 09-30 08:16
PROVIDERS: Nurse Practitioner Adult Health; Nurse Practitioner Gerontology; Admitting Provider Internal Medicine; Emergency Provider Emergency Medicine; Visit Provider Internal Medicine
DX: E86.0 Dehydration (principal); E43 Unspecified severe protein-calorie malnutrition; R64 Cachexia; Z68.1 Body mass index [BMI] 19.9 or less, adult; F11.20 Opioid dependence, uncomplicated; I48.0 Paroxysmal atrial fibrillation; Z79.01 Long term (current) use of anticoagulants; G43.A0 Cyclical vomiting, in migraine, not intractable; Z87.891 Personal history of nicotine dependence; I69.320 Aphasia following cerebral infarction; I69.322 Dysarthria following cerebral infarction; D72.829 Elevated white blood cell count, unspecified; M54.9 Dorsalgia, unspecified; G20 Parkinson's disease
CPT/HCPCS: 36415; 74177; 76700; 78264; 80048; 80053; 80074; 80076; 81001; 83690; 83735; 84100; 84145; 84443; 84484; 85025; 85610; 85730; 92610; 96361; 96365; 97162; 97165; 97530; 99283; 99285; A9541; J2543; J3480; Q9967

== ENCOUNTER 2019-01-02 13:28 | Inpatient (IN) | payer MEDICARE, SELFPAY ==
[2018-09-29 16:06] VITALS: BMI 14.8
[2019-01-02] VITALS (7 sets, daily range): BP systolic 114–148; BP diastolic 77–105; PULSE 80–107; RESP 12–17; TEMP 36.6–36.8; O2SAT 98–100
--- NOTE | 2019-01-02 13:46 | ED.NAVMDI ---
HPI - Nausea/Vomiting/Diarrhea <JOHN Self - Last Filed: 01/02/19 23:10> General Chief complaint: Nausea/Vomiting/Diarrhea Stated complaint: N/V and not eatting x1 week Time Seen by Provider: 01/02/19 13:34 Source: patient and family Mode of arrival: ambulatory History of Present Illness HPI Narrative: The patient is a 78-year-old female current marijuana smoker who presents with daughter for chief complaint of nausea vomiting for the past several days. She has a long medical history including AFib on Coumadin and amiodarone, several years of on and off nausea and vomiting, and is being worked up for possible Parkinson's versus tardive dyskinesia related to Reglan use. She also has history of a CVA and chronic malnutrition.She has been nausea and vomiting for 7 days drinking ice and water with some instant breakfast. She has urinated once today. Daughter states she has not had her medications since 2 days ago. daughter notes that during her last inpatient stay at this facility in September, concerns were raised about cannabis related hyper emesis. The daughter notes that the patient was smoking marijuana just prior to this episode of nausea and vomiting. patient complains of diffuse abdominal pain. denies any chest pain or shortness of breath. Related Data Home Medications Medication Instructions Recorded Confirmed gabapentin 300 mg PO BEDTIME 06/25/18 01/02/19 metoprolol succinate 50 mg PO BID 06/25/18 01/02/19 ondansetron 1 tab PO Q4-6H PRN 06/25/18 01/02/19 paroxetine HCl 1 tab PO DAILY 06/25/18 01/02/19 warfarin 4 mg PO QPM 06/25/18 01/02/19 amiodarone 200 mg PO DAILY 09/29/18 01/02/19 lorazepam 0.5 mg PO TID PRN 01/02/19 01/02/19 Previous Rx's Medication Instructions Recorded oxycodone-acetaminophen 1 tab PO BID #30 tab 10/03/18 Allergies Allergy/AdvReac Type Severity Reaction Status Date / Time Latex, Natural Rubber Allergy Mild Hives Verified 01/02/19 13:43 Review of Systems <JOHN Self - Last Filed: 01/02/19 23:10> Review of Systems GENERAL: See HPI HEENT: Denies sinus pain, ear pain, sore throat, difficulty swallowing, dizziness. RESPIRATORY: Denies dyspnea, cough, wheezing, hemoptysis, sputum. CARDIOVASCULAR: Denies chest pain, palpitations, orthopnea, edema, GASTROINTESTINAL: See HPI : Denies dysuria, frequency, incontinence, hematuria, urinary retention. MUSCULOSKELETAL: denies weakness, joint pain, or bony pain SKIN: Denies rash, skin lesions, or other NEUROLOGIC: Denies weakness, headache, numbness, change in speech, confusion, seizures, incoordination. PSYCHIATRIC: No concerning psychosocial issues. 12 point review of systems is negative except for those stated above PFSH <JEFFERSON Self-BC - Last Filed: 01/02/19 23:10> Medical History Smoker (Acute) Atrial fibrillation (Acute) Chronic anticoagulation (Acute) History of stroke (Acute) Expressive aphasia (Acute) Chronic back pain (Acute) Atrial fibrillation with RVR (Acute) CVA (cerebrovascular accident) (Acute) Dysarthria (Acute) Social History household members: family and children Smoking Status: Current some day smoker alcohol intake: current Exam <JEFFERSON Self-BC - Last Filed: 01/02/19 23:10> Narrative Exam Narrative: GENERAL: Chronically ill-appearing a thin lying on stretcher HEAD: Atraumatic. Normocephalic. No temporal or scalp tenderness. EYES: Pupils equal round and reactive. Extraocular motions intact. No scleral icterus. No injection or drainage. ENT: Nose without bleeding, purulent drainage or septal hematoma. Throat without erythema, tonsillar hypertrophy or exudate. Uvula midline. Airway patent. slightly moist mucous membranes. NECK: Trachea midline. No JVD or lymphadenopathy. Supple, nontender, no meningeal signs. CARDIOVASCULAR: Regular rate and rhythm RESPIRATORY: Clear to auscultation. Breath sounds equal bilaterally. No wheezes, rales, or rhonchi. No cough. No increased respiratory effort. GASTROINTESTINAL: Abdomen soft, diffusely tender to palpation nondistended. No hepato-splenomegaly, or palpable masses. No guarding. active bowel sounds. EXTREMITIES: No clubbing, cyanosis, or edema. No joint tenderness, effusion, or edema noted. BACK: Nontender without deformity or crepitance. No flank tenderness. NEURO: AOx3. Clear speech. SKIN: No rash or erythema. Initial Vital Signs Initial Vital Signs: Vital Signs Temperature 97.9 F 01/02/19 13:38 Pulse Rate 107 H 01/02/19 13:38 Respiratory Rate 16 01/02/19 13:38 Blood Pressure 148/105 H 01/02/19 13:38 Pulse Oximetry 100 01/02/19 13:38 <Alisson Jones DO - Last Filed: 01/03/19 03:02> Initial Vital Signs Initial Vital Signs: Vital Signs Temperature 97.9 F 01/02/19 13:38 Pulse Rate 107 H 01/02/19 13:38 Respiratory Rate 16 01/02/19 13:38 Blood Pressure 148/105 H 01/02/19 13:38 Pulse Oximetry 100 01/02/19 13:38 Course <JEFFERSON Self-BC - Last Filed: 01/02/19 23:10> Orders Ordered: ED Orders 01/02/19 18:30 UA Complete [Urinalysis and Microscopic] Stat 01/02/19 20:07 US abdomen limited Stat 01/02/19 22:50 Education, smoking cessation ONGOING 01/03/19 Complete Blood Count AUTO DIFF Routine Comprehensive Metabolic Panel Routine Lipase Routine 01/03/19 00:40 Consult to Dietitian, Adult Routine Amiodarone HCl (Cordarone) 200 mg PO DAILY TEVIN Bisacodyl (Dulcolax) 10 mg PO DAILY PRN PRN Reason: Constipation Gabapentin (Neurontin) 300 mg PO BEDTIME TEVIN Sodium Chloride (Normal Saline 0.45%) 1,000 mls @ 100 mls/hr IV CONT TEVIN Last Admin: 01/03/19 02:38 Dose: 100 mls/hr Lorazepam (Ativan) 0.5 mg IV Q12H PRN PRN Reason: Anxiety Magnesium Hydroxide (Milk Of Magnesia) 30 ml PO DAILY PRN PRN Reason: Constipation Metoprolol Succinate (Toprol Xl) 50 mg PO BID [facility] Morphine Sulfate (Morphine) 1 mg IV Q6H PRN PRN Reason: Pain, Moderate (4-6) Last Admin: 01/03/19 00:45 Dose: 1 mg Naloxone HCl (Narcan) 0.2 mg IV Q2MIN PRN PRN Reason: Opiate Reversal Ondansetron HCl (Zofran) 4 mg IV Q8HR PRN PRN Reason: Nausea And Vomiting Pantoprazole Sodium (Protonix) 40 mg IV DAILY [facility] Paroxetine HCl (Paxil) 10 mg PO DAILY [facility] Warfarin Sodium (Coumadin) 4 mg PO SEEINSTR@1700 TEVIN Warfarin Sodium (Coumadin) 2 mg PO SEEINSTR@1700 TEVIN Discontinued Medications Enoxaparin Sodium (Lovenox) 30 mg SUBCUT DAILY [facility] Sodium Chloride (Normal Saline 0.9%) 1,000 mls @ 1,000 mls/hr IV BOLUS ONE Stop: 01/02/19 14:46 Last Infusion: 01/02/19 17:00 Dose: 0 mls/hr Admin: 01/02/19 14:32 Dose: 1,000 mls/hr Sodium Chloride (Normal Saline 0.9%) 1,000 mls @ 1,000 mls/hr IV BOLUS ONE Stop: 01/02/19 19:49 Last Infusion: 01/02/19 19:40 Dose: 1,000 mls/hr Admin: 01/02/19 18:56 Dose: 1,000 mls/hr Sodium Chloride (Normal Saline 0.9%) 1,000 mls @ 1,000 mls/hr IV BOLUS ONE Stop: 01/02/19 19:49 Last Infusion: 01/02/19 20:26 Dose: 1,000 mls/hr Admin: 01/02/19 19:42 Dose: 1,000 mls/hr Sodium Chloride (Normal Saline 0.9%) 1,000 mls @ 1,000 mls/hr IV BOLUS ONE Stop: 01/02/19 19:50 Last Infusion: 01/02/19 22:21 Dose: 1,000 mls/hr Admin: 01/02/19 20:26 Dose: 1,000 mls/hr Lorazepam (Ativan) 0.5 mg IV NOW ONE Stop: 01/02/19 14:46 Last Admin: 01/02/19 14:55 Dose: 0.5 mg Ondansetron HCl (Zofran) 4 mg IV NOW ONE Stop: 01/02/19 14:32 Last Admin: 01/02/19 14:32 Dose: 4 mg Oxycodone/Acetaminophen (Percocet 5/325) 1 tab PO NOW ONE Stop: 01/02/19 19:03 Last Admin: 01/02/19 19:03 Dose: 1 tab Vital Signs - 8 hr 01/02/19 21:42 01/02/19 23:57 01/03/19 00:18 Temperature 98.3 F Pulse Rate 83 80 Respiratory Rate 17 17 Blood Pressure 139/95 H Blood Pressure [Right Arm] 135/88 Pulse Oximetry 100 98 98 <Alisson Jones, - Last Filed: 01/03/19 03:02> Orders Ordered: ED Orders 01/02/19 18:30 UA Complete [Urinalysis and Microscopic] Stat 01/02/19 20:07 US abdomen limited Stat 01/02/19 22:50 Education, smoking cessation ONGOING 01/03/19 Complete Blood Count AUTO DIFF Routine Comprehensive Metabolic Panel Routine Lipase Routine 01/03/19 00:40 Consult to Dietitian, Adult Routine Amiodarone HCl (Cordarone) 200 mg PO DAILY [facility] Bisacodyl (Dulcolax) 10 mg PO DAILY PRN PRN Reason: Constipation Gabapentin (Neurontin) 300 mg PO BEDTIME [facility] Sodium Chloride (Normal Saline 0.45%) 1,000 mls @ 100 mls/hr IV CONT TEVIN Last Admin: 01/03/19 02:38 Dose: 100 mls/hr Lorazepam (Ativan) 0.5 mg IV Q12H PRN PRN Reason: Anxiety Magnesium Hydroxide (Milk Of Magnesia) 30 ml PO DAILY PRN PRN Reason: Constipation Metoprolol Succinate (Toprol Xl) 50 mg PO BID [facility] Morphine Sulfate (Morphine) 1 mg IV Q6H PRN PRN Reason: Pain, Moderate (4-6) Last Admin: 01/03/19 00:45 Dose: 1 mg Naloxone HCl (Narcan) 0.2 mg IV Q2MIN PRN PRN Reason: Opiate Reversal Ondansetron HCl (Zofran) 4 mg IV Q8HR PRN PRN Reason: Nausea And Vomiting Pantoprazole Sodium (Protonix) 40 mg IV DAILY [facility] Paroxetine HCl (Paxil) 10 mg PO DAILY [facility] Warfarin Sodium (Coumadin) 4 mg PO SEEINSTR@1700 TEVIN Warfarin Sodium (Coumadin) 2 mg PO SEEINSTR@1700 [facility] Discontinued Medications Enoxaparin Sodium (Lovenox) 30 mg SUBCUT DAILY [facility] Sodium Chloride (Normal Saline 0.9%) 1,000 mls @ 1,000 mls/hr IV BOLUS ONE Stop: 01/02/19 14:46 Last Infusion: 01/02/19 17:00 Dose: 0 mls/hr Admin: 01/02/19 14:32 Dose: 1,000 mls/hr Sodium Chloride (Normal Saline 0.9%) 1,000 mls @ 1,000 mls/hr IV BOLUS ONE Stop: 01/02/19 19:49 Last Infusion: 01/02/19 19:40 Dose: 1,000 mls/hr Admin: 01/02/19 18:56 Dose: 1,000 mls/hr Sodium Chloride (Normal Saline 0.9%) 1,000 mls @ 1,000 mls/hr IV BOLUS ONE Stop: 01/02/19 19:49 Last Infusion: 01/02/19 20:26 Dose: 1,000 mls/hr Admin: 01/02/19 19:42 Dose: 1,000 mls/hr Sodium Chloride (Normal Saline 0.9%) 1,000 mls @ 1,000 mls/hr IV BOLUS ONE Stop: 01/02/19 19:50 Last Infusion: 01/02/19 22:21 Dose: 1,000 mls/hr Admin: 01/02/19 20:26 Dose: 1,000 mls/hr Lorazepam (Ativan) 0.5 mg IV NOW ONE Stop: 01/02/19 14:46 Last Admin: 01/02/19 14:55 Dose: 0.5 mg Ondansetron HCl (Zofran) 4 mg IV NOW ONE Stop: 01/02/19 14:32 Last Admin: 01/02/19 14:32 Dose: 4 mg Oxycodone/Acetaminophen (Percocet 5/325) 1 tab PO NOW ONE Stop: 01/02/19 19:03 Last Admin: 01/02/19 19:03 Dose: 1 tab Vital Signs - 8 hr 01/02/19 21:42 01/02/19 23:57 01/03/19 00:18 Temperature 98.3 F Pulse Rate 83 80 Respiratory Rate 17 17 Blood Pressure 139/95 H Blood Pressure [Right Arm] 135/88 Pulse Oximetry 100 98 98 MDM - Nausea/Vomiting/Diarrhea <JOHN Self - Last Filed: 01/02/19 23:10> Lab Data Result diagrams: 01/02/19 13:35 01/02/19 13:35 Lab Results 01/02/19 01/02/19 01/02/19 Range/Units 13:35 13:35 13:35 WBC 14.7 H (4.5-11.0) X10^3/uL RBC 5.68 H (4.0-5.2) X10^6/uL Hgb 17.3 H (12.0-16.0) g/dL Hct 52.9 H (36-46) % MCV 93.1 (80-100) fL MCH 30.4 (26-34) PG MCHC 32.7 (30-36) % RDW 15.4 H (11.6-14.8) % Plt Count 438 H (150-400) X10^3/uL Neut % (Auto) 80.4 H (50-75) % Lymph % (Auto) 11.4 L (25-40) % Schuyler % (Auto) 7.5 (3-14) % Eos % (Auto) 0.1 L (2-4) % Baso % (Auto) 0.6 (0-2) % Neut # (Auto) 99976 H (2685-4022) /uL Lymph # (Auto) 1700 (9467-7915) /uL [place] # (Auto) 1100 H (0-900) /uL Eos # (Auto) 0 (0-450) /uL Baso # (Auto) 100 (0-100) /uL PT 30.8 H (10.1-12.7) SECONDS INR 2.6 H (0.9-1.3) APTT 40 H D (26.4-36.2) SECONDS Sodium 133 L (137-145) mmol/L Potassium 3.7 (3.4-5.1) mmol/L Chloride 93 L (98-107) mmol/L Carbon Dioxide 25 (22-32) mmol/L BUN 50 H (7-17) mg/dL Creatinine 1.00 (0.52-1.04) mg/dL Estimated GFR 53.6 L (>60) mL/min BUN/Creatinine Ratio 50.0 H (6-22) Glucose 108 (80-110) mg/dL Calcium 9.5 (8.4-10.2) mg/dL Phosphorus 4.0 (2.8-4.1) mg/dL Magnesium 2.1 (1.6-2.3) mg/dL Total Bilirubin 1.2 (0.2-1.3) mg/dL AST 1059 H (14-36) IU/L ALT 1644 H (9-52) IU/L Alkaline Phosphatase 101 (38-126) U/L Total Creatine Kinase (30-135) U/L CK-MB (CK-2) CK-MB (CK-2) Rel Index Troponin I (0.01-0.034) ng/mL Total Protein 8.0 (6.3-8.2) g/dL Albumin 4.3 (3.5-5.0) g/dL Globulin 3.7 (1.7-4.1) g/dL Albumin/Globulin Ratio 1.2 (1.0-2.8) Lipase 367 H (23-300) U/L Procalcitonin (<0.5) ng/mL Urine Color Urine Appearance Urine pH (4.5-8.0) Ur Specific [place] (1.000-1.035) Urine Protein (Negative) Urine Glucose (UA) (Negative) g/dL Urine Ketones (NEGATIVE) Urine Occult Blood (Negative) Urine Nitrate (Negative) Urine Bilirubin (NEGATIVE) Urine Urobilinogen (0.2) E.U./dL Ur Leukocyte Esterase (NEGATIVE) Urine RBC (0-5/HPF) Urine WBC (0-5/HPF) Ur Squamous Epith Cells (0-5/HPF) Urine Bacteria (None) Hyaline Casts (None) Ur Culture Indicated? 01/02/19 01/02/19 01/02/19 Range/Units 13:35 13:35 18:30 WBC (4.5-11.0) X10^3/uL RBC (4.0-5.2) X10^6/uL Hgb (12.0-16.0) g/dL Hct (36-46) % MCV (80-100) fL MCH (26-34) PG MCHC (30-36) % RDW (11.6-14.8) % Plt Count (150-400) X10^3/uL Neut % (Auto) (50-75) % Lymph % (Auto) (25-40) % Schuyler % (Auto) (3-14) % Eos % (Auto) (2-4) % Baso % (Auto) (0-2) % Neut # (Auto) (4738-3620) /uL Lymph # (Auto) (1266-2689) /uL Schuyler # (Auto) (0-900) /uL Eos # (Auto) (0-450) /uL Baso # (Auto) (0-100) /uL PT (10.1-12.7) SECONDS INR (0.9-1.3) APTT (26.4-36.2) SECONDS Sodium (137-145) mmol/L Potassium (3.4-5.1) mmol/L Chloride (98-107) mmol/L Carbon Dioxide (22-32) mmol/L BUN (7-17) mg/dL Creatinine (0.52-1.04) mg/dL Estimated GFR (>60) mL/min BUN/Creatinine Ratio (6-22) Glucose (80-110) mg/dL Calcium (8.4-10.2) mg/dL Phosphorus (2.8-4.1) mg/dL Magnesium (1.6-2.3) mg/dL Total Bilirubin (0.2-1.3) mg/dL AST (14-36) IU/L ALT (9-52) IU/L Alkaline Phosphatase (38-126) U/L Total Creatine Kinase 66 (30-135) U/L CK-MB (CK-2) TNP CK-MB (CK-2) Rel Index TNP Troponin I 0.024 (0.01-0.034) ng/mL Total Protein (6.3-8.2) g/dL Albumin (3.5-5.0) g/dL Globulin (1.7-4.1) g/dL Albumin/Globulin Ratio (1.0-2.8) Lipase (23-300) U/L Procalcitonin 0.08 (<0.5) ng/mL Urine Color Yellow Urine Appearance Clear Urine pH 7.0 (4.5-8.0) Ur Specific [place] <=1.005 (1.000-1.035) Urine Protein Trace H (Negative) Urine Glucose (UA) Negative (Negative) g/dL Urine Ketones 1+ H (NEGATIVE) Urine Occult Blood Negative (Negative) Urine Nitrate Negative (Negative) Urine Bilirubin Negative (NEGATIVE) Urine Urobilinogen 1.0 (0.2) E.U./dL Ur Leukocyte Esterase Negative (NEGATIVE) Urine RBC None seen (0-5/HPF) Urine WBC 1-5/hpf (0-5/HPF) Ur Squamous Epith Cells 1-5 /hpf D (0-5/HPF) Urine Bacteria None seen (None) Hyaline Casts 0-1/lpf (None) Ur Culture Indicated? Cult not indicated Imaging Data CT scan - abdomen: Radiologist's impression: [address] [address] [address] Scan Report Signed Patient: Christie Kong DMR#: [id number] : 1940cct:[id number] Age/Sex: 78 / FDate of Service: 01/02/19 Loc: ED Accession Number: [id number] Procedure: CT abdomen pelvis w con Ordering Provider: Ayah Garvin SECURITY DISPATCHER-BC PROCEDURE: CT ABDOMEN PELVIS W CON INDICATIONS: abd pain, elevated lipase TECHNIQUE: After the administration of intravenous contrast, 5 mm thick sections acquired from the diaphragm to the symphysis. 5 mm coronal and sagittal reformats were acquired. For radiation dose reduction, the following was used: automated exposure control, adjustment of mA and/or kV according to patient size. COMPARISON: [facility], CT, CT ABDOMEN PELVIS W CON, 09/29/2018, 12:32. FINDINGS: Image quality: Excellent. ABDOMEN: Lung bases: Lung bases are clear. Heart size is normal. Solid organs: Liver is normal in size and enhancement. Gallbladder is not. There is moderate extrahepatic biliary ductal dilatation. Common bile duct measures 15 mm, as before. Pancreas enhances normally. Spleen is normal in size and enhancement. No adrenal nodules. Kidneys demonstrate normal size and enhancement, without hydronephrosis. Peritoneum and bowel: There is moderate thickening of the gastric antrum. Bowel loops demonstrate otherwise normal wall thickness and caliber. No free fluid or air. Nodes and vessels: No retroperitoneal or mesenteric adenopathy by size criteria. Aorta and inferior vena cava are normal in size. Miscellaneous: No ventral hernias. PELVIS: Genitourinary: Bladder wall thickness is normal. Calcified uterine fibroids are present. Miscellaneous: No inguinal hernias or adenopathy. Bones: No suspicious bony lesions. There is severe leftward curvature of the thoracolumbar junction of the spine. No vertebral body compression fractures. IMPRESSION: 1. Thickening of the gastric antrum, which may indicate pedicles are disease or neoplasm. Endoscopy is recommended for further assessment. 2. No CT evidence of pancreatitis. Dictated by: Juan Pablo Lima M.D. on 01/02/2019 at 15:50 Approved by: Juan Pablo Lima M.D. on 01/02/2019 at 15:54 US - abdomen: Radiologist's impression: DilanMarciafarshad Pino 78 F [address] [address] Ultrasound Report Signed Patient: Christie Kong DMR#: [id number] : 1940cct:[id number] Age/Sex: 78 / FDate of Service: 01/02/19 Loc: ED Accession Number: [id number] Procedure: US abdomen limited Ordering Provider: Ayah Garvin PROCEDURE: US ABDOMEN LIMITED INDICATIONS: ABDOMINAL PAIN, EXTRAHEPATIC BILIARY DUCT DILATATION TECHNIQUE: Real-time focused scanning was performed of the abdomen, with image documentation. COMPARISON: [facility], CT, CT ABDOMEN PELVIS W CON, 01/02/2019, 15:16. FINDINGS: Coarsely heterogeneous liver parenchymal echotexture is seen. Focal 1.3 x 1.2 x 0.9 cm hypoechogenic area involving anterior periphery of the right hepatic lobe is seen with no significant internal vascularity. No other discrete hepatic lesion is seen. Gallbladder is surgically absent. There is no intrahepatic biliary ductal dilatation. Common hepatic duct measures 7 mm in diameter. Common bile duct measures 8 mm in diameter at the region of pancreatic head. Proximal common bile duct measures 1.2 cm in diameter. This is within normal limits for post cholecystectomy patient. Pancreas is poorly visualized. No gross abnormality is seen. No pancreatic ductal dilatation. Hyperemic tissue is seen in the region of distal stomach/proximal small bowel loop with wall thickening. IMPRESSION: 1. Gallbladder is surgically absent. Extrahepatic biliary ductal dilatation, unchanged from previous CT studies. No evidence of choledocholithiasis. 2. Heterogeneous liver parenchymal echotexture. 1.3 x 1.2 x 0.9 cm hyperechoic area involving right hepatic lobe not definitively seen on previous CT study and may represent a small hemangioma. 3. Thickened distal gastric wall with hyperemia, concordant with CT finding and may represent gastroenteritis. Dictated by: Bruno Wilkinson M.D. on 01/02/2019 at 21:05 Approved by: Bruno Wilkinson M.D. on 01/02/2019 at 21:13 [facility] Narrative Medical decision making narrative: The patient is a 78-year-old female presents with acute dehydration. She appears very hemoconcentrated, especially given her elevated hemoglobin hematocrit as well as high BUN. Given her elevated lipase, I did obtain a CT scan of her abdomen which shows no acute pathology other than some gastric thickening, which might need to be worked up further. I did contact the hospitalist regarding admission for the patient given her incredibly elevated labs interim mucous membranes. He requested an ultrasound and surgical consult prior. I spoke with Dr. Perkins who stated that unless the patient urgently needs an ERCP, she can be admitted for rehydration given her extra hepatic biliary dilation. The patient does not have an elevated bilirubin, her WBCs are 14, but this could be due to hemoconcentration. She is nontender on exam after nausea medications. She is hemodynamically stable throughout her stay in the emergency department. She is able to keep down ice chips and ambulate with a walker. The patient was admitted to hospitalist service for rehydration and further monitoring. Patient states agreement and daughter states understanding and has no questions. <Alisson Jones, DO - Last Filed: 01/03/19 03:02> Lab Data Attestation: I reviewed the patient's lab results. Lab Results 01/02/19 01/02/19 01/02/19 Range/Units 13:35 13:35 13:35 WBC 14.7 H (4.5-11.0) X10^3/uL RBC 5.68 H (4.0-5.2) X10^6/uL Hgb 17.3 H (12.0-16.0) g/dL Hct 52.9 H (36-46) % MCV 93.1 (80-100) fL MCH 30.4 (26-34) PG MCHC 32.7 (30-36) % RDW 15.4 H (11.6-14.8) % Plt Count 438 H (150-400) X10^3/uL Neut % (Auto) 80.4 H (50-75) % Lymph % (Auto) 11.4 L (25-40) % [place] % (Auto) 7.5 (3-14) % Eos % (Auto) 0.1 L (2-4) % Baso % (Auto) 0.6 (0-2) % Neut # (Auto) 49162 H (4814-6647) /uL Lymph # (Auto) 1700 (0866-7474) /uL [place] # (Auto) 1100 H (0-900) /uL Eos # (Auto) 0 (0-450) /uL Baso # (Auto) 100 (0-100) /uL PT 30.8 H (10.1-12.7) SECONDS INR 2.6 H (0.9-1.3) APTT 40 H D (26.4-36.2) SECONDS Sodium 133 L (137-145) mmol/L Potassium 3.7 (3.4-5.1) mmol/L Chloride 93 L (98-107) mmol/L Carbon Dioxide 25 (22-32) mmol/L BUN 50 H (7-17) mg/dL Creatinine 1.00 (0.52-1.04) mg/dL Estimated GFR 53.6 L (>60) mL/min BUN/Creatinine Ratio 50.0 H (6-22) Glucose 108 (80-110) mg/dL Calcium 9.5 (8.4-10.2) mg/dL Phosphorus 4.0 (2.8-4.1) mg/dL Magnesium 2.1 (1.6-2.3) mg/dL Total Bilirubin 1.2 (0.2-1.3) mg/dL AST 1059 H (14-36) IU/L ALT 1644 H (9-52) IU/L Alkaline Phosphatase 101 (38-126) U/L Total Creatine Kinase (30-135) U/L CK-MB (CK-2) CK-MB (CK-2) Rel Index Troponin I (0.01-0.034) ng/mL Total Protein 8.0 (6.3-8.2) g/dL Albumin 4.3 (3.5-5.0) g/dL Globulin 3.7 (1.7-4.1) g/dL Albumin/Globulin Ratio 1.2 (1.0-2.8) Lipase 367 H (23-300) U/L Procalcitonin (<0.5) ng/mL Urine Color Urine Appearance Urine pH (4.5-8.0) Ur Specific [place] (1.000-1.035) Urine Protein (Negative) Urine Glucose (UA) (Negative) g/dL Urine Ketones (NEGATIVE) Urine Occult Blood (Negative) Urine Nitrate (Negative) Urine Bilirubin (NEGATIVE) Urine Urobilinogen (0.2) E.U./dL Ur Leukocyte Esterase (NEGATIVE) Urine RBC (0-5/HPF) Urine WBC (0-5/HPF) Ur Squamous Epith Cells (0-5/HPF) Urine Bacteria (None) Hyaline Casts (None) Ur Culture Indicated? 01/02/19 01/02/19 01/02/19 Range/Units 13:35 13:35 18:30 WBC (4.5-11.0) X10^3/uL RBC (4.0-5.2) X10^6/uL Hgb (12.0-16.0) g/dL Hct (36-46) % MCV (80-100) fL MCH (26-34) PG MCHC (30-36) % RDW (11.6-14.8) % Plt Count (150-400) X10^3/uL Neut % (Auto) (50-75) % Lymph % (Auto) (25-40) % [place] % (Auto) (3-14) % Eos % (Auto) (2-4) % Baso % (Auto) (0-2) % Neut # (Auto) (9250-6388) /uL Lymph # (Auto) (0859-6060) /uL [place] # (Auto) (0-900) /uL Eos # (Auto) (0-450) /uL Baso # (Auto) (0-100) /uL PT (10.1-12.7) SECONDS INR (0.9-1.3) APTT (26.4-36.2) SECONDS Sodium (137-145) mmol/L Potassium (3.4-5.1) mmol/L Chloride (98-107) mmol/L Carbon Dioxide (22-32) mmol/L BUN (7-17) mg/dL Creatinine (0.52-1.04) mg/dL Estimated GFR (>60) mL/min BUN/Creatinine Ratio (6-22) Glucose (80-110) mg/dL Calcium (8.4-10.2) mg/dL Phosphorus (2.8-4.1) mg/dL Magnesium (1.6-2.3) mg/dL Total Bilirubin (0.2-1.3) mg/dL AST (14-36) IU/L ALT (9-52) IU/L Alkaline Phosphatase (38-126) U/L Total Creatine Kinase 66 (30-135) U/L CK-MB (CK-2) TNP CK-MB (CK-2) Rel Index TNP Troponin I 0.024 (0.01-0.034) ng/mL Total Protein (6.3-8.2) g/dL Albumin (3.5-5.0) g/dL Globulin (1.7-4.1) g/dL Albumin/Globulin Ratio (1.0-2.8) Lipase (23-300) U/L Procalcitonin 0.08 (<0.5) ng/mL Urine Color Yellow Urine Appearance Clear Urine pH 7.0 (4.5-8.0) Ur Specific [place] <=1.005 (1.000-1.035) Urine Protein Trace H (Negative) Urine Glucose (UA) Negative (Negative) g/dL Urine Ketones 1+ H (NEGATIVE) Urine Occult Blood Negative (Negative) Urine Nitrate Negative (Negative) Urine Bilirubin Negative (NEGATIVE) Urine Urobilinogen 1.0 (0.2) E.U./dL Ur Leukocyte Esterase Negative (NEGATIVE) Urine RBC None seen (0-5/HPF) Urine WBC 1-5/hpf (0-5/HPF) Ur Squamous Epith Cells 1-5 /hpf D (0-5/HPF) Urine Bacteria None seen (None) Hyaline Casts 0-1/lpf (None) Ur Culture Indicated? Cult not indicated MDM Narrative Medical decision making narrative: Patient had significant elevation BUN creatinine ratio along with quite elevated liver enzymes. According to records in the past previous elevation of liver enzymes at that time GI was consulted with very similar labs no emergent procedure condition. At that time was recommended monitoring blood work. Discharge Plan Departure Patient Disposition: Admitted as Observation Clinical Impression: Acute dehydration, Elevated LFTs Nausea & vomiting Qualifiers: Vomiting type: cyclical vomiting Vomiting Intractability: intractable Qualified Code(s): G43.A1 - Cyclical vomiting, intractable Discharge Date/Time: 01/02/19 23:05 Interventions: ED Discharge Assessment Last Done: 01/02/19 23:05 Admit Date/Time: 01/02/19 22:34 Admit Provider: Fabricio Jenkins <Alisson Jones DO - Last Filed: 01/03/19 03:02> Cosign ED Attending Juanpablo Attestation: I was immediately available in the department for consultation. Documentation has been reviewed. I agree with assessment and plan.
--- NOTE | 2019-01-02 13:56 | ED_ITS ---
HPI - Nausea/Vomiting/Diarrhea <JOHN Self - Last Filed: 01/02/19 23:10> General Chief complaint: Nausea/Vomiting/Diarrhea Stated complaint: N/V and not eatting x1 week Time Seen by Provider: 01/02/19 13:34 Source: patient and family Mode of arrival: ambulatory History of Present Illness HPI Narrative: The patient is a 78-year-old female current marijuana smoker who presents with daughter for chief complaint of nausea vomiting for the past several days. She has a long medical history including AFib on Coumadin and amiodarone, several years of on and off nausea and vomiting, and is being worked up for possible Parkinson's versus tardive dyskinesia related to Reglan use. She also has history of a CVA and chronic malnutrition.She has been nausea and vomiting for 7 days drinking ice and water with some instant breakfast. She has urinated once today. Daughter states she has not had her medications since 2 days ago. daughter notes that during her last inpatient stay at this facility in September, concerns were raised about cannabis related hyper emesis. The daughter notes that the patient was smoking marijuana just prior to this episode of nausea and vomiting. patient complains of diffuse abdominal pain. denies any chest pain or shortness of breath. Related Data Home Medications Medication Instructions Recorded Confirmed gabapentin 300 mg PO BEDTIME 06/25/18 01/02/19 metoprolol succinate 50 mg PO BID 06/25/18 01/02/19 ondansetron 1 tab PO Q4-6H PRN 06/25/18 01/02/19 paroxetine HCl 1 tab PO DAILY 06/25/18 01/02/19 warfarin 4 mg PO QPM 06/25/18 01/02/19 amiodarone 200 mg PO DAILY 09/29/18 01/02/19 lorazepam 0.5 mg PO TID PRN 01/02/19 01/02/19 Previous Rx's Medication Instructions Recorded oxycodone-acetaminophen 1 tab PO BID #30 tab 10/03/18 Allergies Allergy/AdvReac Type Severity Reaction Status Date / Time Latex, Natural Rubber Allergy Mild Hives Verified 01/02/19 13:43 Review of Systems <JOHN Self - Last Filed: 01/02/19 23:10> Review of Systems GENERAL: See HPI HEENT: Denies sinus pain, ear pain, sore throat, difficulty swallowing, dizziness. RESPIRATORY: Denies dyspnea, cough, wheezing, hemoptysis, sputum. CARDIOVASCULAR: Denies chest pain, palpitations, orthopnea, edema, GASTROINTESTINAL: See HPI : Denies dysuria, frequency, incontinence, hematuria, urinary retention. MUSCULOSKELETAL: denies weakness, joint pain, or bony pain SKIN: Denies rash, skin lesions, or other NEUROLOGIC: Denies weakness, headache, numbness, change in speech, confusion, seizures, incoordination. PSYCHIATRIC: No concerning psychosocial issues. 12 point review of systems is negative except for those stated above PFSH <JEFFERSON Self-BC - Last Filed: 01/02/19 23:10> Medical History Smoker (Acute) Atrial fibrillation (Acute) Chronic anticoagulation (Acute) History of stroke (Acute) Expressive aphasia (Acute) Chronic back pain (Acute) Atrial fibrillation with RVR (Acute) CVA (cerebrovascular accident) (Acute) Dysarthria (Acute) Social History household members: family and children Smoking Status: Current some day smoker alcohol intake: current Exam <JEFFERSON Self-BC - Last Filed: 01/02/19 23:10> Narrative Exam Narrative: GENERAL: Chronically ill-appearing a thin lying on stretcher HEAD: Atraumatic. Normocephalic. No temporal or scalp tenderness. EYES: Pupils equal round and reactive. Extraocular motions intact. No scleral icterus. No injection or drainage. ENT: Nose without bleeding, purulent drainage or septal hematoma. Throat without erythema, tonsillar hypertrophy or exudate. Uvula midline. Airway patent. slightly moist mucous membranes. NECK: Trachea midline. No JVD or lymphadenopathy. Supple, nontender, no meningeal signs. CARDIOVASCULAR: Regular rate and rhythm RESPIRATORY: Clear to auscultation. Breath sounds equal bilaterally. No wheezes, rales, or rhonchi. No cough. No increased respiratory effort. GASTROINTESTINAL: Abdomen soft, diffusely tender to palpation nondistended. No hepato-splenomegaly, or palpable masses. No guarding. active bowel sounds. EXTREMITIES: No clubbing, cyanosis, or edema. No joint tenderness, effusion, or edema noted. BACK: Nontender without deformity or crepitance. No flank tenderness. NEURO: AOx3. Clear speech. SKIN: No rash or erythema. Initial Vital Signs Initial Vital Signs: Vital Signs Temperature 97.9 F 01/02/19 13:38 Pulse Rate 107 H 01/02/19 13:38 Respiratory Rate 16 01/02/19 13:38 Blood Pressure 148/105 H 01/02/19 13:38 Pulse Oximetry 100 01/02/19 13:38 <Alisson Jones DO - Last Filed: 01/03/19 03:02> Initial Vital Signs Initial Vital Signs: Vital Signs Temperature 97.9 F 01/02/19 13:38 Pulse Rate 107 H 01/02/19 13:38 Respiratory Rate 16 01/02/19 13:38 Blood Pressure 148/105 H 01/02/19 13:38 Pulse Oximetry 100 01/02/19 13:38 Course <JEFFERSON Self-BC - Last Filed: 01/02/19 23:10> Orders Ordered: ED Orders 01/02/19 18:30 UA Complete [Urinalysis and Microscopic] Stat 01/02/19 20:07 US abdomen limited Stat 01/02/19 22:50 Education, smoking cessation ONGOING 01/03/19 Complete Blood Count AUTO DIFF Routine Comprehensive Metabolic Panel Routine Lipase Routine 01/03/19 00:40 Consult to Dietitian, Adult Routine Amiodarone HCl (Cordarone) 200 mg PO DAILY [facility] Bisacodyl (Dulcolax) 10 mg PO DAILY PRN PRN Reason: Constipation Gabapentin (Neurontin) 300 mg PO BEDTIME TEVIN Sodium Chloride (Normal Saline 0.45%) 1,000 mls @ 100 mls/hr IV CONT TEVIN Last Admin: 01/03/19 02:38 Dose: 100 mls/hr Lorazepam (Ativan) 0.5 mg IV Q12H PRN PRN Reason: Anxiety Magnesium Hydroxide (Milk Of Magnesia) 30 ml PO DAILY PRN PRN Reason: Constipation Metoprolol Succinate (Toprol Xl) 50 mg PO BID [facility] Morphine Sulfate (Morphine) 1 mg IV Q6H PRN PRN Reason: Pain, Moderate (4-6) Last Admin: 01/03/19 00:45 Dose: 1 mg Naloxone HCl (Narcan) 0.2 mg IV Q2MIN PRN PRN Reason: Opiate Reversal Ondansetron HCl (Zofran) 4 mg IV Q8HR PRN PRN Reason: Nausea And Vomiting Pantoprazole Sodium (Protonix) 40 mg IV DAILY [facility] Paroxetine HCl (Paxil) 10 mg PO DAILY [facility] Warfarin Sodium (Coumadin) 4 mg PO SEEINSTR@1700 TEVIN Warfarin Sodium (Coumadin) 2 mg PO SEEINSTR@1700 TEVIN Discontinued Medications Enoxaparin Sodium (Lovenox) 30 mg SUBCUT DAILY [facility] Sodium Chloride (Normal Saline 0.9%) 1,000 mls @ 1,000 mls/hr IV BOLUS ONE Stop: 01/02/19 14:46 Last Infusion: 01/02/19 17:00 Dose: 0 mls/hr Admin: 01/02/19 14:32 Dose: 1,000 mls/hr Sodium Chloride (Normal Saline 0.9%) 1,000 mls @ 1,000 mls/hr IV BOLUS ONE Stop: 01/02/19 19:49 Last Infusion: 01/02/19 19:40 Dose: 1,000 mls/hr Admin: 01/02/19 18:56 Dose: 1,000 mls/hr Sodium Chloride (Normal Saline 0.9%) 1,000 mls @ 1,000 mls/hr IV BOLUS ONE Stop: 01/02/19 19:49 Last Infusion: 01/02/19 20:26 Dose: 1,000 mls/hr Admin: 01/02/19 19:42 Dose: 1,000 mls/hr Sodium Chloride (Normal Saline 0.9%) 1,000 mls @ 1,000 mls/hr IV BOLUS ONE Stop: 01/02/19 19:50 Last Infusion: 01/02/19 22:21 Dose: 1,000 mls/hr Admin: 01/02/19 20:26 Dose: 1,000 mls/hr Lorazepam (Ativan) 0.5 mg IV NOW ONE Stop: 01/02/19 14:46 Last Admin: 01/02/19 14:55 Dose: 0.5 mg Ondansetron HCl (Zofran) 4 mg IV NOW ONE Stop: 01/02/19 14:32 Last Admin: 01/02/19 14:32 Dose: 4 mg Oxycodone/Acetaminophen (Percocet 5/325) 1 tab PO NOW ONE Stop: 01/02/19 19:03 Last Admin: 01/02/19 19:03 Dose: 1 tab Vital Signs - 8 hr 01/02/19 21:42 01/02/19 23:57 01/03/19 00:18 Temperature 98.3 F Pulse Rate 83 80 Respiratory Rate 17 17 Blood Pressure 139/95 H Blood Pressure [Right Arm] 135/88 Pulse Oximetry 100 98 98 <Alisson Jones, - Last Filed: 01/03/19 03:02> Orders Ordered: ED Orders 01/02/19 18:30 UA Complete [Urinalysis and Microscopic] Stat 01/02/19 20:07 US abdomen limited Stat 01/02/19 22:50 Education, smoking cessation ONGOING 01/03/19 Complete Blood Count AUTO DIFF Routine Comprehensive Metabolic Panel Routine Lipase Routine 01/03/19 00:40 Consult to Dietitian, Adult Routine Amiodarone HCl (Cordarone) 200 mg PO DAILY [facility] Bisacodyl (Dulcolax) 10 mg PO DAILY PRN PRN Reason: Constipation Gabapentin (Neurontin) 300 mg PO BEDTIME [facility] Sodium Chloride (Normal Saline 0.45%) 1,000 mls @ 100 mls/hr IV CONT TEVIN Last Admin: 01/03/19 02:38 Dose: 100 mls/hr Lorazepam (Ativan) 0.5 mg IV Q12H PRN PRN Reason: Anxiety Magnesium Hydroxide (Milk Of Magnesia) 30 ml PO DAILY PRN PRN Reason: Constipation Metoprolol Succinate (Toprol Xl) 50 mg PO BID [facility] Morphine Sulfate (Morphine) 1 mg IV Q6H PRN PRN Reason: Pain, Moderate (4-6) Last Admin: 01/03/19 00:45 Dose: 1 mg Naloxone HCl (Narcan) 0.2 mg IV Q2MIN PRN PRN Reason: Opiate Reversal Ondansetron HCl (Zofran) 4 mg IV Q8HR PRN PRN Reason: Nausea And Vomiting Pantoprazole Sodium (Protonix) 40 mg IV DAILY [facility] Paroxetine HCl (Paxil) 10 mg PO DAILY [facility] Warfarin Sodium (Coumadin) 4 mg PO SEEINSTR@1700 TEVIN Warfarin Sodium (Coumadin) 2 mg PO SEEINSTR@1700 [facility] Discontinued Medications Enoxaparin Sodium (Lovenox) 30 mg SUBCUT DAILY [facility] Sodium Chloride (Normal Saline 0.9%) 1,000 mls @ 1,000 mls/hr IV BOLUS ONE Stop: 01/02/19 14:46 Last Infusion: 01/02/19 17:00 Dose: 0 mls/hr Admin: 01/02/19 14:32 Dose: 1,000 mls/hr Sodium Chloride (Normal Saline 0.9%) 1,000 mls @ 1,000 mls/hr IV BOLUS ONE Stop: 01/02/19 19:49 Last Infusion: 01/02/19 19:40 Dose: 1,000 mls/hr Admin: 01/02/19 18:56 Dose: 1,000 mls/hr Sodium Chloride (Normal Saline 0.9%) 1,000 mls @ 1,000 mls/hr IV BOLUS ONE Stop: 01/02/19 19:49 Last Infusion: 01/02/19 20:26 Dose: 1,000 mls/hr Admin: 01/02/19 19:42 Dose: 1,000 mls/hr Sodium Chloride (Normal Saline 0.9%) 1,000 mls @ 1,000 mls/hr IV BOLUS ONE Stop: 01/02/19 19:50 Last Infusion: 01/02/19 22:21 Dose: 1,000 mls/hr Admin: 01/02/19 20:26 Dose: 1,000 mls/hr Lorazepam (Ativan) 0.5 mg IV NOW ONE Stop: 01/02/19 14:46 Last Admin: 01/02/19 14:55 Dose: 0.5 mg Ondansetron HCl (Zofran) 4 mg IV NOW ONE Stop: 01/02/19 14:32 Last Admin: 01/02/19 14:32 Dose: 4 mg Oxycodone/Acetaminophen (Percocet 5/325) 1 tab PO NOW ONE Stop: 01/02/19 19:03 Last Admin: 01/02/19 19:03 Dose: 1 tab Vital Signs - 8 hr 01/02/19 21:42 01/02/19 23:57 01/03/19 00:18 Temperature 98.3 F Pulse Rate 83 80 Respiratory Rate 17 17 Blood Pressure 139/95 H Blood Pressure [Right Arm] 135/88 Pulse Oximetry 100 98 98 MDM - Nausea/Vomiting/Diarrhea <JOHN Self - Last Filed: 01/02/19 23:10> Lab Data Result diagrams: 01/02/19 13:35 01/02/19 13:35 Lab Results 01/02/19 01/02/19 01/02/19 Range/Units 13:35 13:35 13:35 WBC 14.7 H (4.5-11.0) X10^3/uL RBC 5.68 H (4.0-5.2) X10^6/uL Hgb 17.3 H (12.0-16.0) g/dL Hct 52.9 H (36-46) % MCV 93.1 (80-100) fL MCH 30.4 (26-34) PG MCHC 32.7 (30-36) % RDW 15.4 H (11.6-14.8) % Plt Count 438 H (150-400) X10^3/uL Neut % (Auto) 80.4 H (50-75) % Lymph % (Auto) 11.4 L (25-40) % [place] % (Auto) 7.5 (3-14) % Eos % (Auto) 0.1 L (2-4) % Baso % (Auto) 0.6 (0-2) % Neut # (Auto) 03425 H (6267-5089) /uL Lymph # (Auto) 1700 (4689-6880) /uL [place] # (Auto) 1100 H (0-900) /uL Eos # (Auto) 0 (0-450) /uL Baso # (Auto) 100 (0-100) /uL PT 30.8 H (10.1-12.7) SECONDS INR 2.6 H (0.9-1.3) APTT 40 H D (26.4-36.2) SECONDS Sodium 133 L (137-145) mmol/L Potassium 3.7 (3.4-5.1) mmol/L Chloride 93 L (98-107) mmol/L Carbon Dioxide 25 (22-32) mmol/L BUN 50 H (7-17) mg/dL Creatinine 1.00 (0.52-1.04) mg/dL Estimated GFR 53.6 L (>60) mL/min BUN/Creatinine Ratio 50.0 H (6-22) Glucose 108 (80-110) mg/dL Calcium 9.5 (8.4-10.2) mg/dL Phosphorus 4.0 (2.8-4.1) mg/dL Magnesium 2.1 (1.6-2.3) mg/dL Total Bilirubin 1.2 (0.2-1.3) mg/dL AST 1059 H (14-36) IU/L ALT 1644 H (9-52) IU/L Alkaline Phosphatase 101 (38-126) U/L Total Creatine Kinase (30-135) U/L CK-MB (CK-2) CK-MB (CK-2) Rel Index Troponin I (0.01-0.034) ng/mL Total Protein 8.0 (6.3-8.2) g/dL Albumin 4.3 (3.5-5.0) g/dL Globulin 3.7 (1.7-4.1) g/dL Albumin/Globulin Ratio 1.2 (1.0-2.8) Lipase 367 H (23-300) U/L Procalcitonin (<0.5) ng/mL Urine Color Urine Appearance Urine pH (4.5-8.0) Ur Specific [place] (1.000-1.035) Urine Protein (Negative) Urine Glucose (UA) (Negative) g/dL Urine Ketones (NEGATIVE) Urine Occult Blood (Negative) Urine Nitrate (Negative) Urine Bilirubin (NEGATIVE) Urine Urobilinogen (0.2) E.U./dL Ur Leukocyte Esterase (NEGATIVE) Urine RBC (0-5/HPF) Urine WBC (0-5/HPF) Ur Squamous Epith Cells (0-5/HPF) Urine Bacteria (None) Hyaline Casts (None) Ur Culture Indicated? 01/02/19 01/02/19 01/02/19 Range/Units 13:35 13:35 18:30 WBC (4.5-11.0) X10^3/uL RBC (4.0-5.2) X10^6/uL Hgb (12.0-16.0) g/dL Hct (36-46) % MCV (80-100) fL MCH (26-34) PG MCHC (30-36) % RDW (11.6-14.8) % Plt Count (150-400) X10^3/uL Neut % (Auto) (50-75) % Lymph % (Auto) (25-40) % [place] % (Auto) (3-14) % Eos % (Auto) (2-4) % Baso % (Auto) (0-2) % Neut # (Auto) (4038-2768) /uL Lymph # (Auto) (3176-6585) /uL [place] # (Auto) (0-900) /uL Eos # (Auto) (0-450) /uL Baso # (Auto) (0-100) /uL PT (10.1-12.7) SECONDS INR (0.9-1.3) APTT (26.4-36.2) SECONDS Sodium (137-145) mmol/L Potassium (3.4-5.1) mmol/L Chloride (98-107) mmol/L Carbon Dioxide (22-32) mmol/L BUN (7-17) mg/dL Creatinine (0.52-1.04) mg/dL Estimated GFR (>60) mL/min BUN/Creatinine Ratio (6-22) Glucose (80-110) mg/dL Calcium (8.4-10.2) mg/dL Phosphorus (2.8-4.1) mg/dL Magnesium (1.6-2.3) mg/dL Total Bilirubin (0.2-1.3) mg/dL AST (14-36) IU/L ALT (9-52) IU/L Alkaline Phosphatase (38-126) U/L Total Creatine Kinase 66 (30-135) U/L CK-MB (CK-2) TNP CK-MB (CK-2) Rel Index TNP Troponin I 0.024 (0.01-0.034) ng/mL Total Protein (6.3-8.2) g/dL Albumin (3.5-5.0) g/dL Globulin (1.7-4.1) g/dL Albumin/Globulin Ratio (1.0-2.8) Lipase (23-300) U/L Procalcitonin 0.08 (<0.5) ng/mL Urine Color Yellow Urine Appearance Clear Urine pH 7.0 (4.5-8.0) Ur Specific [place] <=1.005 (1.000-1.035) Urine Protein Trace H (Negative) Urine Glucose (UA) Negative (Negative) g/dL Urine Ketones 1+ H (NEGATIVE) Urine Occult Blood Negative (Negative) Urine Nitrate Negative (Negative) Urine Bilirubin Negative (NEGATIVE) Urine Urobilinogen 1.0 (0.2) E.U./dL Ur Leukocyte Esterase Negative (NEGATIVE) Urine RBC None seen (0-5/HPF) Urine WBC 1-5/hpf (0-5/HPF) Ur Squamous Epith Cells 1-5 /hpf D (0-5/HPF) Urine Bacteria None seen (None) Hyaline Casts 0-1/lpf (None) Ur Culture Indicated? Cult not indicated Imaging Data CT scan - abdomen: Radiologist's impression: [address] [address] [address] Scan Report Signed Patient: Christie Kong DMR#: [id number] : [id number]:[id number] Age/Sex: 78 / FDate of Service: 01/02/19 Loc: ED Accession Number: [id number] Procedure: CT abdomen pelvis w con Ordering Provider: Ayah Garvin [employer]TER-BC PROCEDURE: CT ABDOMEN PELVIS W CON INDICATIONS: abd pain, elevated lipase TECHNIQUE: After the administration of intravenous contrast, 5 mm thick sections acquired from the diaphragm to the symphysis. 5 mm coronal and sagittal reformats were acquired. For radiation dose reduction, the following was used: automated exposure control, adjustment of mA and/or kV according to patient size. COMPARISON: [facility], CT, CT ABDOMEN PELVIS W CON, 09/29/2018, 12:32. FINDINGS: Image quality: Excellent. ABDOMEN: Lung bases: Lung bases are clear. Heart size is normal. Solid organs: Liver is normal in size and enhancement. Gallbladder is not. There is moderate extrahepatic biliary ductal dilatation. Common bile duct measures 15 mm, as before. Pancreas enhances normally. Spleen is normal in size and enhancement. No adrenal nodules. Kidneys demonstrate normal size and enhancement, without hydronephrosis. Peritoneum and bowel: There is moderate thickening of the gastric antrum. Bowel loops demonstrate otherwise normal wall thickness and caliber. No free fluid or air. Nodes and vessels: No retroperitoneal or mesenteric adenopathy by size criteria. Aorta and inferior vena cava are normal in size. Miscellaneous: No ventral hernias. PELVIS: Genitourinary: Bladder wall thickness is normal. Calcified uterine fibroids are present. Miscellaneous: No inguinal hernias or adenopathy. Bones: No suspicious bony lesions. There is severe leftward curvature of the thoracolumbar junction of the spine. No vertebral body compression fractures. IMPRESSION: 1. Thickening of the gastric antrum, which may indicate pedicles are disease or neoplasm. Endoscopy is recommended for further assessment. 2. No CT evidence of pancreatitis. Dictated by: Juan Pablo Lima M.D. on 01/02/2019 at 15:50 Approved by: Juan Pablo Lima M.D. on 01/02/2019 at 15:54 US - abdomen: Radiologist's impression: DilanMarciafarshad Pino 78 F [address] [address] Ultrasound Report Signed Patient: Christie Kong DMR#: [id number] : [id number]:[id number] Age/Sex: 78 / FDate of Service: 01/02/19 Loc: ED Accession Number: [id number] Procedure: US abdomen limited Ordering Provider: Ayah Garvin PROCEDURE: US ABDOMEN LIMITED INDICATIONS: ABDOMINAL PAIN, EXTRAHEPATIC BILIARY DUCT DILATATION TECHNIQUE: Real-time focused scanning was performed of the abdomen, with image documentation. COMPARISON: [facility], CT, CT ABDOMEN PELVIS W CON, 01/02/2019, 15:16. FINDINGS: Coarsely heterogeneous liver parenchymal echotexture is seen. Focal 1.3 x 1.2 x 0.9 cm hypoechogenic area involving anterior periphery of the right hepatic lobe is seen with no significant internal vascularity. No other discrete hepatic lesion is seen. Gallbladder is surgically absent. There is no intrahepatic biliary ductal dilatation. Common hepatic duct measures 7 mm in diameter. Common bile duct measures 8 mm in diameter at the region of pancreatic head. Proximal common bile duct measures 1.2 cm in diameter. This is within normal limits for post cholecystectomy patient. Pancreas is poorly visualized. No gross abnormality is seen. No pancreatic ductal dilatation. Hyperemic tissue is seen in the region of distal stomach/proximal small bowel loop with wall thickening. IMPRESSION: 1. Gallbladder is surgically absent. Extrahepatic biliary ductal dilatation, unchanged from previous CT studies. No evidence of choledocholithiasis. 2. Heterogeneous liver parenchymal echotexture. 1.3 x 1.2 x 0.9 cm hyperechoic area involving right hepatic lobe not definitively seen on previous CT study and may represent a small hemangioma. 3. Thickened distal gastric wall with hyperemia, concordant with CT finding and may represent gastroenteritis. Dictated by: Bruno Wilkinson M.D. on 01/02/2019 at 21:05 Approved by: Bruno Wilkinson M.D. on 01/02/2019 at 21:13 [facility] Narrative Medical decision making narrative: The patient is a 78-year-old female presents with acute dehydration. She appears very hemoconcentrated, especially given her elevated hemoglobin hematocrit as well as high BUN. Given her elevated lipase, I did obtain a CT scan of her abdomen which shows no acute pathology other than some gastric thickening, which might need to be worked up further. I did contact the hospitalist regarding admission for the patient given her incredibly elevated labs interim mucous membranes. He requested an ultrasound and surgical consult prior. I spoke with Dr. Perkins who stated that unless the patient urgently needs an ERCP, she can be admitted for rehydration given her extra hepatic biliary dilation. The patient does not have an elevated bilirubin, her WBCs are 14, but this could be due to hemoconcentration. She is nontender on exam after nausea medications. She is hemodynamically stable throughout her stay in the emergency department. She is able to keep down ice chips and ambulate with a walker. The patient was admitted to hospitalist service for rehydration and further monitoring. Patient states agreement and daughter states understanding and has no questions. <Alisson Jones, DO - Last Filed: 01/03/19 03:02> Lab Data Attestation: I reviewed the patient's lab results. Lab Results 01/02/19 01/02/19 01/02/19 Range/Units 13:35 13:35 13:35 WBC 14.7 H (4.5-11.0) X10^3/uL RBC 5.68 H (4.0-5.2) X10^6/uL Hgb 17.3 H (12.0-16.0) g/dL Hct 52.9 H (36-46) % MCV 93.1 (80-100) fL MCH 30.4 (26-34) PG MCHC 32.7 (30-36) % RDW 15.4 H (11.6-14.8) % Plt Count 438 H (150-400) X10^3/uL Neut % (Auto) 80.4 H (50-75) % Lymph % (Auto) 11.4 L (25-40) % [place] % (Auto) 7.5 (3-14) % Eos % (Auto) 0.1 L (2-4) % Baso % (Auto) 0.6 (0-2) % Neut # (Auto) 49512 H (8318-4837) /uL Lymph # (Auto) 1700 (5399-5572) /uL [place] # (Auto) 1100 H (0-900) /uL Eos # (Auto) 0 (0-450) /uL Baso # (Auto) 100 (0-100) /uL PT 30.8 H (10.1-12.7) SECONDS INR 2.6 H (0.9-1.3) APTT 40 H D (26.4-36.2) SECONDS Sodium 133 L (137-145) mmol/L Potassium 3.7 (3.4-5.1) mmol/L Chloride 93 L (98-107) mmol/L Carbon Dioxide 25 (22-32) mmol/L BUN 50 H (7-17) mg/dL Creatinine 1.00 (0.52-1.04) mg/dL Estimated GFR 53.6 L (>60) mL/min BUN/Creatinine Ratio 50.0 H (6-22) Glucose 108 (80-110) mg/dL Calcium 9.5 (8.4-10.2) mg/dL Phosphorus 4.0 (2.8-4.1) mg/dL Magnesium 2.1 (1.6-2.3) mg/dL Total Bilirubin 1.2 (0.2-1.3) mg/dL AST 1059 H (14-36) IU/L ALT 1644 H (9-52) IU/L Alkaline Phosphatase 101 (38-126) U/L Total Creatine Kinase (30-135) U/L CK-MB (CK-2) CK-MB (CK-2) Rel Index Troponin I (0.01-0.034) ng/mL Total Protein 8.0 (6.3-8.2) g/dL Albumin 4.3 (3.5-5.0) g/dL Globulin 3.7 (1.7-4.1) g/dL Albumin/Globulin Ratio 1.2 (1.0-2.8) Lipase 367 H (23-300) U/L Procalcitonin (<0.5) ng/mL Urine Color Urine Appearance Urine pH (4.5-8.0) Ur Specific [place] (1.000-1.035) Urine Protein (Negative) Urine Glucose (UA) (Negative) g/dL Urine Ketones (NEGATIVE) Urine Occult Blood (Negative) Urine Nitrate (Negative) Urine Bilirubin (NEGATIVE) Urine Urobilinogen (0.2) E.U./dL Ur Leukocyte Esterase (NEGATIVE) Urine RBC (0-5/HPF) Urine WBC (0-5/HPF) Ur Squamous Epith Cells (0-5/HPF) Urine Bacteria (None) Hyaline Casts (None) Ur Culture Indicated? 01/02/19 01/02/19 01/02/19 Range/Units 13:35 13:35 18:30 WBC (4.5-11.0) X10^3/uL RBC (4.0-5.2) X10^6/uL Hgb (12.0-16.0) g/dL Hct (36-46) % MCV (80-100) fL MCH (26-34) PG MCHC (30-36) % RDW (11.6-14.8) % Plt Count (150-400) X10^3/uL Neut % (Auto) (50-75) % Lymph % (Auto) (25-40) % [place] % (Auto) (3-14) % Eos % (Auto) (2-4) % Baso % (Auto) (0-2) % Neut # (Auto) (6891-1093) /uL Lymph # (Auto) (0125-3948) /uL [place] # (Auto) (0-900) /uL Eos # (Auto) (0-450) /uL Baso # (Auto) (0-100) /uL PT (10.1-12.7) SECONDS INR (0.9-1.3) APTT (26.4-36.2) SECONDS Sodium (137-145) mmol/L Potassium (3.4-5.1) mmol/L Chloride (98-107) mmol/L Carbon Dioxide (22-32) mmol/L BUN (7-17) mg/dL Creatinine (0.52-1.04) mg/dL Estimated GFR (>60) mL/min BUN/Creatinine Ratio (6-22) Glucose (80-110) mg/dL Calcium (8.4-10.2) mg/dL Phosphorus (2.8-4.1) mg/dL Magnesium (1.6-2.3) mg/dL Total Bilirubin (0.2-1.3) mg/dL AST (14-36) IU/L ALT (9-52) IU/L Alkaline Phosphatase (38-126) U/L Total Creatine Kinase 66 (30-135) U/L CK-MB (CK-2) TNP CK-MB (CK-2) Rel Index TNP Troponin I 0.024 (0.01-0.034) ng/mL Total Protein (6.3-8.2) g/dL Albumin (3.5-5.0) g/dL Globulin (1.7-4.1) g/dL Albumin/Globulin Ratio (1.0-2.8) Lipase (23-300) U/L Procalcitonin 0.08 (<0.5) ng/mL Urine Color Yellow Urine Appearance Clear Urine pH 7.0 (4.5-8.0) Ur Specific [place] <=1.005 (1.000-1.035) Urine Protein Trace H (Negative) Urine Glucose (UA) Negative (Negative) g/dL Urine Ketones 1+ H (NEGATIVE) Urine Occult Blood Negative (Negative) Urine Nitrate Negative (Negative) Urine Bilirubin Negative (NEGATIVE) Urine Urobilinogen 1.0 (0.2) E.U./dL Ur Leukocyte Esterase Negative (NEGATIVE) Urine RBC None seen (0-5/HPF) Urine WBC 1-5/hpf (0-5/HPF) Ur Squamous Epith Cells 1-5 /hpf D (0-5/HPF) Urine Bacteria None seen (None) Hyaline Casts 0-1/lpf (None) Ur Culture Indicated? Cult not indicated MDM Narrative Medical decision making narrative: Patient had significant elevation BUN creatinine ratio along with quite elevated liver enzymes. According to records in the past previous elevation of liver enzymes at that time GI was consulted with very similar labs no emergent procedure condition. At that time was re commended monitoring blood work. Discharge Plan Departure Patient Disposition: Admitted as Observation Clinical Impression: Acute dehydration, Elevated LFTs Nausea & vomiting Qualifiers: Vomiting type: cyclical vomiting Vomiting Intractability: intractable Qualified Code(s): G43.A1 - Cyclical vomiting, intractable Discharge Date/Time: 01/02/19 23:05 Interventions: ED Discharge Assessment Last Done: 01/02/19 23:05 Admit Date/Time: 01/02/19 22:34 Admit Provider: Fabricio Jenkins <Alisson Jones DO - Last Filed: 01/03/19 03:02> Cosign ED Attending Juanpablo Attestation: I was immediately available in the department for consultation. Documentation has been reviewed. I agree with assessment and plan.
[2019-01-02 13:58] LABS: Add Manual Diff / Slide Review NO; Basophils Absolute Auto 100 /uL (0-100); Basophils Percent Auto 0.6 % (0-2); Eosinophils Absolute Auto 0 /uL (0-450); Eosinophils Percent Auto 0.1 % (2-4); Hematocrit 52.9 % (36-46); Hemoglobin 17.3 g/dL (12.0-16.0); Lymphocytes Absolute Auto 1700 /uL (1100-4500); Lymphocytes Percent Auto 11.4 % (25-40); Mean Corpuscular HGB Conc 32.7 % (30-36); Mean Corpuscular Hemoglobin 30.4 PG (26-34); Mean Corpuscular Volume 93.1 fL (80-100); Monocytes Absolute Auto 1100 /uL (0-900); Monocytes Percent Auto 7.5 % (3-14); Neutrophils Absolute Auto 11800 /uL (1500-7000); Neutrophils Percent Auto 80.4 % (50-75); Platelet Count 438 X10^3/uL (150-400); Red Blood Cell Count 5.68 X10^6/uL (4.0-5.2); Red Cell Distribution Width 15.4 % (11.6-14.8); White Blood Cell Count 14.7 X10^3/uL (4.5-11.0)
[2019-01-02 13:59] LABS: INR 2.6 (0.9-1.3); Prothrombin Time 30.8 SECONDS (10.1-12.7)
[2019-01-02 14:02] LABS: PTT Partial Thromboplastin Tim 40 SECONDS (26.4-36.2)
[2019-01-02 14:09] LABS: Albumin 4.3 g/dL (3.5-5.0); Albumin Globulin Ratio 1.2 (1.0-2.8); Alkaline Phosphatase 101 U/L (38-126); Bilirubin Total 1.2 mg/dL (0.2-1.3); Blood Urea Nitrogen 50 mg/dL (7-17); Calcium 9.5 mg/dL (8.4-10.2); Carbon Dioxide 25 mmol/L (22-32); Chloride 93 mmol/L (98-107); Estimated Glomerular Filt Rate 53.6 mL/min (>60); Globulin 3.7 g/dL (1.7-4.1); Glucose 108 mg/dL (80-110); Lipase 367 U/L (23-300)
[2019-01-02 14:11] LABS: HEMOLYSIS 59 (0-50)
--- NOTE | 2019-01-02 14:22 | PC.NURSE ---
reports, nausea and vomiting for one week, unable to keep anything down, no routine meds since yesterday, takes oxycodone 3 times a day for back pain. reports increase in thirst. denies fever,diarrhea. hx of scoliosis, reports left flank pain, worsen with bed rest. weakness for one week.
[2019-01-02] MEDS: ONDANSETRON 4 MG/2 ML INJ IV (14:32)
[2019-01-02] MEDS: SODIUM CHLORIDE 0.9% 1,000 ML 1000 ML IV ×4 (14:32→20:26)
[2019-01-02 14:35] LABS: Magnesium 2.1 mg/dL (1.6-2.3); Potassium 3.7 mmol/L (3.4-5.1); Sodium 133 mmol/L (137-145)
[2019-01-02 14:45] LABS: Procalcitonin 0.08 ng/mL (<0.5)
[2019-01-02] MEDS: LORazepam 2 MG/ML SYRINGE 0.5 MG IV (14:55)
[2019-01-02 15:02] LABS: Creatine Kinase 66 U/L (30-135)
--- NOTE | 2019-01-02 15:08 | DI.CT.S_ITS ---
PROCEDURE: CT ABDOMEN PELVIS W CON INDICATIONS: abd pain, elevated lipase TECHNIQUE: After the administration of intravenous contrast, 5 mm thick sections acquired from the diaphragm to the symphysis. 5 mm coronal and sagittal reformats were acquired. For radiation dose reduction, the following was used: automated exposure control, adjustment of mA and/or kV according to patient size. COMPARISON: [facility], CT, CT ABDOMEN PELVIS W CON, 09/29/2018, 12:32. FINDINGS: Image quality: Excellent. ABDOMEN: Lung bases: Lung bases are clear. Heart size is normal. Solid organs: Liver is normal in size and enhancement. Gallbladder is not. There is moderate extrahepatic biliary ductal dilatation. Common bile duct measures 15 mm, as before. Pancreas enhances normally. Spleen is normal in size and enhancement. No adrenal nodules. Kidneys demonstrate normal size and enhancement, without hydronephrosis. Peritoneum and bowel: There is moderate thickening of the gastric antrum. Bowel loops demonstrate otherwise normal wall thickness and caliber. No free fluid or air. Nodes and vessels: No retroperitoneal or mesenteric adenopathy by size criteria. Aorta and inferior vena cava are normal in size. Miscellaneous: No ventral hernias. PELVIS: Genitourinary: Bladder wall thickness is normal. Calcified uterine fibroids are present. Miscellaneous: No inguinal hernias or adenopathy. Bones: No suspicious bony lesions. There is severe leftward curvature of the thoracolumbar junction of the spine. No vertebral body compression fractures. IMPRESSION: 1. Thickening of the gastric antrum, which may indicate pedicles are disease or neoplasm. Endoscopy is recommended for further assessment. 2. No CT evidence of pancreatitis. Dictated by: Juan Pablo Lima M.D. on 01/02/2019 at 15:50 Approved by: Juan Pablo Lima M.D. on 01/02/2019 at 15:54
[2019-01-02 15:14] LABS: Aspartate Aminotransferase 1059 IU/L (14-36)
[2019-01-02 15:16] LABS: Troponin I 0.024 ng/mL (0.01-0.034)
[2019-01-02 15:25] LABS: Alanine Aminotransferase 1644 IU/L (9-52)
[2019-01-02 18:32] LABS: Bacteria Urine None Seen; RBC Urine None Seen (0-5/HPF)
[2019-01-02 18:33] LABS: Appearance Urine UA CLEAR; Bilirubin Urine UA NEGATIVE (NEGATIVE); Color Urine UA YELLOW; Glucose Urine UA NEGATIVE (Negative); Ketones Urine UA 1+ (NEGATIVE); Leukocyte Esterase Urine UA NEGATIVE (NEGATIVE); Nitrite Urine UA NEGATIVE (Negative); Occult Blood Urine UA NEGATIVE (Negative); Protein Urine UA TRACE (Negative); Specific Gravity Urine UA <=1.005 (1.000-1.035)
[2019-01-02 18:52] LABS: Squamous Epithelial Cell Urine 1-5 /HPF (0-5/HPF); WBC Urine 1-5/HPF (0-5/HPF)
[2019-01-02 18:53] LABS: Culture Indicated Urine Cult Not Indicated; Hyaline Casts Urine 0-1/LPF
[2019-01-02] MEDS: OXYCODONE/ACETAMINOPHEN 5/325 TABLET 1 TAB PO (19:03)
--- NOTE | 2019-01-02 20:07 | DI.US.S_ITS ---
PROCEDURE: US ABDOMEN LIMITED INDICATIONS: ABDOMINAL PAIN, EXTRAHEPATIC BILIARY DUCT DILATATION TECHNIQUE: Real-time focused scanning was performed of the abdomen, with image documentation. COMPARISON: [facility], CT, CT ABDOMEN PELVIS W CON, 01/02/2019, 15:16. FINDINGS: Coarsely heterogeneous liver parenchymal echotexture is seen. Focal 1.3 x 1.2 x 0.9 cm hypoechogenic area involving anterior periphery of the right hepatic lobe is seen with no significant internal vascularity. No other discrete hepatic lesion is seen. Gallbladder is surgically absent. There is no intrahepatic biliary ductal dilatation. Common hepatic duct measures 7 mm in diameter. Common bile duct measures 8 mm in diameter at the region of pancreatic head. Proximal common bile duct measures 1.2 cm in diameter. This is within normal limits for post cholecystectomy patient. Pancreas is poorly visualized. No gross abnormality is seen. No pancreatic ductal dilatation. Hyperemic tissue is seen in the region of distal stomach/proximal small bowel loop with wall thickening. IMPRESSION: 1. Gallbladder is surgically absent. Extrahepatic biliary ductal dilatation, unchanged from previous CT studies. No evidence of choledocholithiasis. 2. Heterogeneous liver parenchymal echotexture. 1.3 x 1.2 x 0.9 cm hyperechoic area involving right hepatic lobe not definitively seen on previous CT study and may represent a small hemangioma. 3. Thickened distal gastric wall with hyperemia, concordant with CT finding and may represent gastroenteritis. Dictated by: Bruno Wilkinson M.D. on 01/02/2019 at 21:05 Approved by: Bruno Wilkinson M.D. on 01/02/2019 at 21:13
--- NOTE | 2019-01-02 23:09 | P.HP_ITS ---
History of Present Illness Date Patient Seen: 01/02/19 Time Patient Seen: 22:31 Chief complaint: N/V and not eatting x1 week Narrative: Felix Kong is a 74-year-old female patient with a prior history atrial fibrillation on long-term anticoagulation with warfarin, CVA, expressive aphasia, dysarthria, chronic back, and depression presents to the ER today for severe nausea and vomiting for one week. The patient is a difficult historian however reports that she has not been able to eat or drink fluids for one week. Her daughter whom the pateint lives with is at bedside and suppliments the patient history. She has a prior history of nausea and vomiting and has been prescribed Reglan which she no longer takes and Zofran for 3-4 years. The patient was admitted on 09/30/2018 under similar circumstances. The patient's daughter endorses today that the patient became severely nauseated with vomiting following smoking marijuana and notes that the patient smoked marijuana once again 1 week ago becoming severely nauseated and vomiting the next day. Patient complains of epigastric pain but states she feels better after I had dehydration in the emergency department. She has chronic low back pain for which she has had an increase in her Percocet in attempt to control pain and eliminate use of marijuana for pain management. She reports no complaints of fevers or chills, headaches or dizziness, chest pain or shortness of breath and denies diarrhea or constipation. On arrival in the ER the patient was found to be afebrile a temperature of 97.9? tachycardic at 107 with a blood pressure 148/105 and respirations of 16 and oxygen saturation 100% on room air. Patient underwent CT of the abdomen pelvis which defy the liver as normal with an absent gallbladder and moderate ductal dilation at 15 mm with extrahepatic fluid collection. In comparison abdominal ultrasound was obtained following consultation with General surgery that identifies coarsely heterogeneous liver parenchyma with a 1.3 x 1.2 x 0.9 cm hypoechogenic area in the anterior periphery of the right lobe. The ultrasound finds no ductal dilatation measuring 7-8 mm and 1.2 cm proximally. The exam further identifies hyperemic tissue in the distal stomach proximal small bowel with wall thickening. On laboratory analysis patient had elevated white count at 14.7 hemoglobin 17.3 and hematocrit of 52.9 and platelets of 438. Sodium was slightly low 133 with normal potassium. Her BUN is 50 and creatinine is 1.0. She has a normal bilirubin at 1.2 however AST is 1059 and ALT is 1644 with a lipase of 367. Procalcitonin is negative at 0.08 and her troponin was also negative at 0.024. Her INR is therapeutic at 2.6 with an elevated APTT at 40. Urinalysis is positive for ketones and trace proteins but no indications of infection. Patient History Medical History Smoker (Acute) Atrial fibrillation (Acute) Chronic anticoagulation (Acute) History of stroke (Acute) Expressive aphasia (Acute) Chronic back pain (Acute) Atrial fibrillation with RVR (Acute) CVA (cerebrovascular accident) (Acute) Dysarthria (Acute) Family & Social History Social History: household members family,children Safety & Behavioral: Feels Safe in Current Yes Environment Been Physically Hurt or No Threatened By a Person Tobacco & Substance use: Tobacco type cigarettes Smoking Status Current some day smoker alcohol intake frequency holiday/special occasion Substance Use Type does not use Comment: The patient was previously for 15 years and subsequently for 30 years. She currently lives with her daughter and son-in-law in a single-level single family home. Both her parents are and has only stepsiblings. . Smoking: Patient states she has smoked off and on for many years and reports having last quit 4 years ago. She endorses smoking recently but none for the last week. Alcohol: Consumed alcohol in the past, no present alcohol consumption Substance abuse: Patient endorses smoking marijuana Advanced directives: Intra conversation with the patient she wishes to be a FULL CODE. She designates her daughter to be surrogate decision maker. Meds Home Medications Medication Instructions Recorded Confirmed Type gabapentin 300 mg PO BEDTIME 06/25/18 01/02/19 History metoprolol succinate 50 mg PO BID 06/25/18 01/02/19 History ondansetron 1 tab PO Q4-6H PRN 06/25/18 01/02/19 History paroxetine HCl 1 tab PO DAILY 06/25/18 01/02/19 History warfarin 4 mg PO QPM 06/25/18 01/02/19 History amiodarone 200 mg PO DAILY 09/29/18 01/02/19 History oxycodone-acetaminophen 1 tab PO BID #30 tab 10/03/18 01/02/19 Rx lorazepam 0.5 mg PO TID PRN 01/02/19 01/02/19 History Allergies Allergy/AdvReac Type Severity Reaction Status Date / Time Latex, Natural Rubber Allergy Mild Hives Verified 01/02/19 13:43 Review of Systems Review of Systems All systems reviewed & are unremarkable except as noted in HPI and below Exam Vital Signs (past 8 hours): - 01/02/19 15:45 01/02/19 15:47 01/02/19 21:42 Pulse Rate 82 83 Respiratory Rate 16 17 Blood Pressure [Right Arm] 114/77 135/88 Pulse Oximetry 100 100 Oxygen Delivery Method Room Air Narrative Exam Narrative: GENERAL APPEARANCE: well developed, well nourished, in no acute distress. HEAD: Normocephalic, atraumatic, no scalp lesions. EYES: pupils equal, round, reactive to light and accommodation, sclera non- icteric, extraocular movement intact. EARS: normal external structures, no ear pain NOSE: sinuses non tender to percussion, no rhinorrhea ORAL CAVITY: abnormal involuntary jaw movement, mucosa moist without lesions or exudate, palate normal, tongue in midline. THROAT: normal, no erythema, no exudate, pharynx normal, uvula midline, no dysphagia noted. NECK/THYROID: neck supple, no jugular venous distention, no carotid bruit, no thyromegaly, trachea midline. LYMPH NODES: no cervical or supraclavicular lymphadenopathy. SKIN: warm and dry, no suspicious lesions, no rashes HEART: regular rate and rhythm, S1-S2 without murmur, no rubs or gallops, brisk capillary refill, no edema LUNGS: diminished breath sounds bilaterally, no coarseness crackles or wheezing, no cough present CHEST: Symmetrical movement, no accessory muscle use, no pain to AP and lateral compression. ABDOMEN: epigastric pain on palpation, no guarding or peritoneal signs, no organomegaly, no flank or suprapubic tenderness, active bowel tones. BACK: lumbosacral spine pain on palpation, left greater than right, scoliosis with leftward lumbar and rightward thoracic curves, no palpable muscle spasms. EXTREMITIES: moves all extremities, strength is 4/5 and symmetrical, tremor with movement NEUROLOGIC: AAO person, place and situation, cranial nerves II-XII grossly intact , motor strength weak upper and lower extremities, sensory exam intact to light touch, hearing grossly normal to speech. PSYCH: alert, cognitive function intact, good eye contact, stable mood with congruent affect Objective Labs Result Diagrams: 01/02/19 13:35 01/02/19 13:35 Labs: Laboratory Results - last 24 hr 01/02/19 01/02/19 01/02/19 13:35 13:35 13:35 WBC 14.7 H RBC 5.68 H Hgb 17.3 H Hct 52.9 H MCV 93.1 MCH 30.4 MCHC 32.7 RDW 15.4 H Plt Count 438 H Neut % (Auto) 80.4 H Lymph % (Auto) 11.4 L [place] % (Auto) 7.5 Eos % (Auto) 0.1 L Baso % (Auto) 0.6 Neut # (Auto) 53700 H Lymph # (Auto) 1700 [place] # (Auto) 1100 H Eos # (Auto) 0 Baso # (Auto) 100 PT 30.8 H INR 2.6 H APTT 40 H D Sodium 133 L Potassium 3.7 Chloride 93 L Carbon Dioxide 25 BUN 50 H Creatinine 1.00 Estimated GFR 53.6 L BUN/Creatinine Ratio 50.0 H Glucose 108 Calcium 9.5 Phosphorus 4.0 Magnesium 2.1 Total Bilirubin 1.2 AST 1059 H ALT 1644 H Alkaline Phosphatase 101 Total Creatine Kinase CK-MB (CK-2) CK-MB (CK-2) Rel Index Troponin I Total Protein 8.0 Albumin 4.3 Globulin 3.7 Albumin/Globulin Ratio 1.2 Lipase 367 H Procalcitonin Urine Color Urine Appearance Urine pH Ur Specific [place] Urine Protein Urine Glucose (UA) Urine Ketones Urine Occult Blood Urine Nitrate Urine Bilirubin Urine Urobilinogen Ur Leukocyte Esterase Urine RBC Urine WBC Ur Squamous Epith Cells Urine Bacteria Hyaline Casts Ur Culture Indicated? 01/02/19 01/02/19 01/02/19 13:35 13:35 18:30 WBC RBC Hgb Hct MCV MCH MCHC RDW Plt Count Neut % (Auto) Lymph % (Auto) [place] % (Auto) Eos % (Auto) Baso % (Auto) Neut # (Auto) Lymph # (Auto) [place] # (Auto) Eos # (Auto) Baso # (Auto) PT INR APTT Sodium Potassium Chloride Carbon Dioxide BUN Creatinine Estimated GFR BUN/Creatinine Ratio Glucose Calcium Phosphorus Magnesium Total Bilirubin AST ALT Alkaline Phosphatase Total Creatine Kinase 66 CK-MB (CK-2) TNP CK-MB (CK-2) Rel Index TNP Troponin I 0.024 Total Protein Albumin Globulin Albumin/Globulin Ratio Lipase Procalcitonin 0.08 Urine Color Yellow Urine Appearance Clear Urine pH 7.0 Ur Specific [place] <=1.005 Urine Protein Trace H Urine Glucose (UA) Negative Urine Ketones 1+ H Urine Occult Blood Negative Urine Nitrate Negative Urine Bilirubin Negative Urine Urobilinogen 1.0 Ur Leukocyte Esterase Negative Urine RBC None seen Urine WBC 1-5/hpf Ur Squamous Epith Cells 1-5 /hpf D Urine Bacteria None seen Hyaline Casts 0-1/lpf Ur Culture Indicated? Cult not indicated Assessment & Plan Assessment & Plan narrative: This is a 77-year-old female patient who is cache ctic in appearance who is acutely dehydrated with elevated liver functions. 1. Intractable nausea and vomiting, present on admission, recurrent -patient previously admitted for same complaint on September 30, 2018. -onset of symptoms for 1 day following smoking marijuana, patient's daughter endorses the patient using marijuana prior to previous admission for same condition. -patient received Zofran in the emergency department with 3 L of normal saline -will continue Zofran for 4 mg every 6 hours as needed, Reglan will not be used related to symptoms of tardive dyskinesia. -continue cautious rehydration with normal saline at 100 cc/hour 2. Acute dehydration, present on admission -nausea vomiting with poor oral intake for 1 week. -patient hemoconcentrated with hemoglobin of 17.3 and hematocrit of 52.9, elevated BUN creatinine ratio of 50:1 -Rehydrate cautiously as above. -will re-evaluate CBC and chemistries 3. Acute Gastritis, present on admission -patient with epigastric tenderness on palpation -ultrasound imaging identifies thickened distal gastric wall with hyperemia. -CT exam does find moderate ductal dilation with extrahepatic fluid accumulation, liver is described as normal and surgically absent gallbladder -acute gastritis related to intractable nausea vomiting -Protonix 40 mg IV daily -normal saline 100 cc/hour -clear liquid diet 4. Acute elevation transaminases, present on admission -elevation of LFTs on prior admission in September with an AST of 55, ALT of 340 and alkaline phosphatase of 83. -labs today find total bili of 1.2, AST of 1059, ALT 1644, alkaline phosphatase normal at 1 1 as well as an elevated lipase at 367. -requested surgery consult related to CT findings of ductal dilatation, extra ductal fluid accumulation and elevated liver functions in a patient with surgically absent gallbladder. -Thank you Dr. Parikh for your evaluation with recommendation for rehydration and re-evaluation as described above 5. Chronic long-term anticoagulation on warfarin -patient is taking warfarin 4 mg on and Sundays and 2 mg all other day s. -no untoward bleeding or bruising noted -INR is therapeutic at 2.4, will continue current warfarin dosing regimen. -will follow INR. 6. History of stroke, stable -prior stroke with expressive aphasia and dysarthria not appreciated on exam today 7. Chronic back pain present on admission -patient with lumbosacral back pain left greater than right -history of chronic pain treated with opiates with recent increase and Percocet dosing to 3 times daily -patient has been prescribed gabapentin but not taking the medication due to ?too many pills?, review purpose of medication and expected outcome of use with the patient -Percocet 5/325 twice daily as needed for pain -continue gabapentin 300 mg nightly -morphine 1 mg IV q.4 hours as needed for severe pain. 8. Chronic Atrial fibrillation, present on admission -irregularly irregular rhythm with controlled ventricular rate. -continue amiodarone 200 mg daily and metoprolol succinate 50 mg twice daily The patient is admitted to the hospital due to severity of symptoms and risk of complications. The patient is admitted observation status with expected length of stay not to exceed 2 midnights. Time Spent With Patient Time with patient: 25 - 35 minutes
[2019-01-03] VITALS (11 sets, daily range): BP systolic 107–143; BP diastolic 71–89; PULSE 81–91; RESP 16–19; TEMP 36.3–36.8; O2SAT 98–100; BMI 15.4
[2019-01-03] MEDS: MORPHINE 2 MG/ML INJ 1 MG IV ×4 (00:45→20:10)
[2019-01-03] MEDS: SODIUM CHLORIDE 0.45% 1,000 ML 100 ML IV ×2 (02:38→20:19)
[2019-01-03 06:11] LABS: Add Manual Diff / Slide Review NO; Basophils Absolute Auto 0 /uL (0-100); Basophils Percent Auto 0.1 % (0-2); Eosinophils Absolute Auto 100 /uL (0-450); Eosinophils Percent Auto 0.5 % (2-4); Hemoglobin 14.7 g/dL (12.0-16.0); Lymphocytes Absolute Auto 1900 /uL (1100-4500); Lymphocytes Percent Auto 16.6 % (25-40); Mean Corpuscular HGB Conc 33.4 % (30-36); Mean Corpuscular Hemoglobin 31.1 PG (26-34); Mean Corpuscular Volume 93.2 fL (80-100); Monocytes Absolute Auto 1000 /uL (0-900); Monocytes Percent Auto 8.5 % (3-14); Neutrophils Absolute Auto 8600 /uL (1500-7000); Neutrophils Percent Auto 74.3 % (50-75); Platelet Count 332 X10^3/uL (150-400); Red Blood Cell Count 4.72 X10^6/uL (4.0-5.2); Red Cell Distribution Width 15.5 % (11.6-14.8); White Blood Cell Count 11.6 X10^3/uL (4.5-11.0)
[2019-01-03 06:14] LABS: INR 3.1 (0.9-1.3); Prothrombin Time 36.7 SECONDS (10.1-12.7)
[2019-01-03 06:22] LABS: Albumin 3.4 g/dL (3.5-5.0); Albumin Globulin Ratio 1.2 (1.0-2.8); Alkaline Phosphatase 81 U/L (38-126); BUN Creatinine Ratio 42.5 (6-22); Bilirubin Total 0.9 mg/dL (0.2-1.3); Blood Urea Nitrogen 34 mg/dL (7-17); Calcium 8.3 mg/dL (8.4-10.2); Carbon Dioxide 21 mmol/L (22-32); Chloride 103 mmol/L (98-107); Estimated Glomerular Filt Rate > 60.0 mL/min (>60); Globulin 2.9 g/dL (1.7-4.1); Glucose 73 mg/dL (80-110); HEMOLYSIS 42 (0-50); Lipase 304 U/L (23-300); Sodium 136 mmol/L (137-145); Total Protein 6.3 g/dL (6.3-8.2)
[2019-01-03 06:29] LABS: Alanine Aminotransferase 1498 IU/L (9-52); Aspartate Aminotransferase 1059 IU/L (14-36)
[2019-01-03] MEDS: POTASSIUM CHLORIDE 60 MEQ in SODIUM CHLORIDE 0.9% 500 ML 88.333 ML IV (08:10)
[2019-01-03] MEDS: PANTOPRAZOLE 40 MG VIAL IV (08:13)
--- NOTE | 2019-01-03 08:20 | PC.NURSE ---
Addendum entered by Katie Burgos R.N. 01/03/19 14:10: PAIN - after DI nurse started perif iv under ultrasound, pt asking for pain medication, given 1mg iv morphine and restarted earlier K= rider, pt landon sips clears. Original Note: AM NOTE - easily awakens, can I have a pain pill, states chronic back discomfort, oral lip tremors, bs clear, ra 100%, HR 88, pt repositioned self to l side, given 1mg iv morphine, denies nausea now ok right now.
--- NOTE | 2019-01-03 10:52 | P.PN_ITS ---
Subjective Date Patient Seen: 01/03/19 Time Patient Seen: 10:52 Interval history: She is seen in her room today to follow up the marijuana induced hyperemesis, recurrent vomiting episodes, atrial fibrillation, gastritis and elevated liver enzymes. She seems to be somewhat confused. Surgery has been contacted. It is unclear if they are planning to see her. The potassium is 3.0 so additional IV potassium is being given. She is asking for Percocet for back pain. She is quite hard of hearing. Exam Vital Signs (past 8 hours): - 01/03/19 05:52 01/03/19 07:00 01/03/19 07:45 Temperature 97.4 F L 97.4 F L Pulse Rate 86 81 Respiratory Rate 16 18 Blood Pressure 126/74 107/71 Pulse Oximetry 100 100 100 Oxygen Delivery Method Room Air Objective Labs Result Diagrams: 01/03/19 05:32 01/03/19 05:32 Labs: Laboratory Results - last 24 hr 01/02/19 01/02/19 01/02/19 05:32 13:35 13:35 WBC 14.7 H RBC 5.68 H Hgb 17.3 H Hct 52.9 H MCV 93.1 MCH 30.4 MCHC 32.7 RDW 15.4 H Plt Count 438 H Neut % (Auto) 80.4 H Lymph % (Auto) 11.4 L [place] % (Auto) 7.5 Eos % (Auto) 0.1 L Baso % (Auto) 0.6 Neut # (Auto) 77574 H Lymph # (Auto) 1700 [place] # (Auto) 1100 H Eos # (Auto) 0 Baso # (Auto) 100 PT 36.7 H 30.8 H D INR 3.1 H 2.6 H APTT 40 H D Sodium Potassium Chloride Carbon Dioxide BUN Creatinine Estimated GFR BUN/Creatinine Ratio Glucose Calcium Phosphorus Magnesium Total Bilirubin AST ALT Alkaline Phosphatase Total Creatine Kinase CK-MB (CK-2) CK-MB (CK-2) Rel Index Troponin I Total Protein Albumin Globulin Albumin/Globulin Ratio Lipase Procalcitonin Urine Color Urine Appearance Urine pH Ur Specific [place] Urine Protein Urine Glucose (UA) Urine Ketones Urine Occult Blood Urine Nitrate Urine Bilirubin Urine Urobilinogen Ur Leukocyte Esterase Urine RBC Urine WBC Ur Squamous Epith Cells Urine Bacteria Hyaline Casts Ur Culture Indicated? 01/02/19 01/02/19 01/02/19 13:35 13:35 13:35 WBC RBC Hgb Hct MCV MCH MCHC RDW Plt Count Neut % (Auto) Lymph % (Auto) [place] % (Auto) Eos % (Auto) Baso % (Auto) Neut # (Auto) Lymph # (Auto) [place] # (Auto) Eos # (Auto) Baso # (Auto) PT INR APTT Sodium 133 L Potassium 3.7 Chloride 93 L Carbon Dioxide 25 BUN 50 H Creatinine 1.00 Estimated GFR 53.6 L BUN/Creatinine Ratio 50.0 H Glucose 108 Calcium 9.5 Phosphorus 4.0 Magnesium 2.1 Total Bilirubin 1.2 AST 1059 H ALT 1644 H Alkaline Phosphatase 101 Total Creatine Kinase 66 CK-MB (CK-2) TNP CK-MB (CK-2) Rel Index TNP Troponin I 0.024 Total Protein 8.0 Albumin 4.3 Globulin 3.7 Albumin/Globulin Ratio 1.2 Lipase 367 H Procalcitonin 0.08 Urine Color Urine Appearance Urine pH Ur Specific [place] Urine Protein Urine Glucose (UA) Urine Ketones Urine Occult Blood Urine Nitrate Urine Bilirubin Urine Urobilinogen Ur Leukocyte Esterase Urine RBC Urine WBC Ur Squamous Epith Cells Urine Bacteria Hyaline Casts Ur Culture Indicated? 01/02/19 01/03/19 01/03/19 18:30 05:32 05:32 WBC 11.6 H RBC 4.72 Hgb 14.7 Hct 44.0 MCV 93.2 MCH 31.1 MCHC 33.4 RDW 15.5 H Plt Count 332 Neut % (Auto) 74.3 Lymph % (Auto) 16.6 L [place] % (Auto) 8.5 Eos % (Auto) 0.5 L Baso % (Auto) 0.1 Neut # (Auto) 8600 H Lymph # (Auto) 1900 [place] # (Auto) 1000 H Eos # (Auto) 100 Baso # (Auto) 0 PT INR APTT Sodium 136 L Potassium 3.0 L Chloride 103 Carbon Dioxide 21 L BUN 34 H Creatinine 0.80 Estimated GFR > 60.0 BUN/Creatinine Ratio 42.5 H Glucose 73 L Calcium 8.3 L Phosphorus Magnesium Total Bilirubin 0.9 AST 1059 H ALT 1498 H Alkaline Phosphatase 81 Total Creatine Kinase CK-MB (CK-2) CK-MB (CK-2) Rel Index Troponin I Total Protein 6.3 Albumin 3.4 L Globulin 2.9 Albumin/Globulin Ratio 1.2 Lipase 304 H Procalcitonin Urine Color Yellow Urine Appearance Clear Urine pH 7.0 Ur Specific [place] <=1.005 Urine Protein Trace H Urine Glucose (UA) Negative Urine Ketones 1+ H Urine Occult Blood Negative Urine Nitrate Negative Urine Bilirubin Negative Urine Urobilinogen 1.0 Ur Leukocyte Esterase Negative Urine RBC None seen Urine WBC 1-5/hpf Ur Squamous Epith Cells 1-5 /hpf D Urine Bacteria None seen Hyaline Casts 0-1/lpf Ur Culture Indicated? Cult not indicated Assessment & Plan Assessment & Plan narrative: 1. Intractable nausea and vomiting, present on admission, recurrent -patient previously admitted for same complaint on September 30, 2018. -onset of symptoms for 1 day following smoking marijuana, patient's daughter endorses the patient using marijuana prior to previous admission for same condition. -patient received Zofran in the emergency department with 3 L of normal saline -will continue Zofran for 4 mg every 6 hours as needed, Reglan will not be used related to symptoms of tardive dyskinesia. -continue cautious rehydration with normal saline at 100 cc/hour Cannabis hyperemesis syndrome -patient has had 2 episodes of severe nausea vomiting following smoking marijuana. -will rule out other potential etiology with further investigation of elevated LFTs and periductal fluid collection as other possible sources -Zofran is adequately controlling nausea with low-dose lorazepam. 2. Acute dehydration, present on admission -nausea vomiting with poor oral intake for 1 week. -patient hemoconcentrated with hemoglobin of 17.3 and hematocrit of 52.9, elevated BUN creatinine ratio of 50:1 -Rehydrate cautiously as above. -will re-evaluate CBC and chemistries 3. Acute Gastritis, present on admission -patient with epigastric tenderness on palpation -ultrasound imaging identifies thickened distal gastric wall with hyperemia. -CT exam does find moderate ductal dilation with extrahepatic fluid accumulation, liver is described as normal and surgically absent gallbladder -acute gastritis related to intractable nausea vomiting -Protonix 40 mg IV daily -normal saline 100 cc/hour -clear liquid diet 4. Acute elevation transaminases, present on admission -elevation of LFTs on prior admission in September with an AST of 55, ALT of 340 and alkaline phosphatase of 83. -labs today find total bili of 1.2, AST of 1059, ALT 1644, alkaline phosphatase normal at 1 1 as well as an elevated lipase at 367. -check viral Hepatitis studies - A/B/C -requested surgery consult related to CT findings of ductal dilatation, extra ductal fluid accumulation and elevated liver functions in a patient with surgically absent gallbladder. -Thank you Dr. Parikh for your evaluation with recommendation for rehydration and re-evaluation as described above 5. Chronic long-term anticoagulation on warfarin -patient is taking warfarin 4 mg on and Sundays and 2 mg all other days. -no untoward bleeding or bruising noted -INR is therapeutic at 2.4, will continue current warfarin dosing regimen. -will follow INR. 6. History of stroke, stable -prior stroke with expressive aphasia and dysarthria not appreciated on exam today 7. Chronic back pain present on admission -patient with lumbosacral back pain left greater than right -history of chronic pain treated with opiates with recent increase and Percocet dosing to 3 times daily -patient has been prescribed gabapentin but not taking the medication due to ?too many pills?, review purpose of medication and expected outcome of use with the patient -Percocet 5/325 twice daily as needed for pain -continue gabapentin 300 mg nightly -morphine 1 mg IV q.4 hours as needed for severe pain. 8. Chronic Atrial fibrillation, present on admission -irregularly irregular rhythm with controlled ventricular rate. -continue amiodarone 200 mg daily and metoprolol succinate 50 mg twice daily 9. Hypokalemia -supplement with IV potassium rider and recheck tomorrow.
[2019-01-03] MEDS: METOPROLOL ER 50 MG TABLET PO ×2 (11:04→21:22)
[2019-01-03] MEDS: AMIODARONE 200 MG TABLET PO (11:04)
[2019-01-03] MEDS: PARoxetine 10 MG TABLET PO (11:04)
--- NOTE | 2019-01-03 16:01 | DIET.PN ---
REceived consult request r/t wt loss and very low BMI. Pt sleeping during visit. Eating very little so far per RN notes. Dx: N/V, no PO intake X1wk, Gastritis Diet; Clear liquid Wt: 39.5kg BMMI: 15.4 Wt change: approx 6# loss in last mo for 6% change Nutrition focused physical exam: moderate temperal loss, severe loss in bicep/tricep. Unable to see chest r/t body position Assessment: Severe acute illness pcm r/t inflammation of illness, no PO intake >1week AEB wt loss w/6% change in 1 month; very low BMI and physical evidence of muscle wasting. PCM is likely acute on chronic with wt prior to current loss being still a very low BMI Intervention: Add Ensure Clear to trays. Plan f/u on Mon
[2019-01-03] MEDS: WARFARIN 2 MG TABLET PO (16:39)
[2019-01-03] MEDS: ONDANSETRON 4 MG/2 ML INJ IV (16:41)
[2019-01-03 19:46] LABS: Hepatitis B Surface Antigen NEGATIVE s/c (NEGATIVE)
[2019-01-03 20:03] LABS: Hep C Virus Ab w/Reflex Quant NEGATIVE s/c (NEGATIVE)
[2019-01-03] MEDS: GABAPENTIN 300 MG CAPSULE PO (21:22)
[2019-01-04] VITALS (10 sets, daily range): BP systolic 129–158; BP diastolic 79–97; PULSE 78–86; RESP 16–18; TEMP 36.3–37.2; O2SAT 95–100
--- NOTE | 2019-01-04 00:37 | PC.NURSE ---
2300- Pt admit for nausea/vomiting; no emesis reported today. Pt is tolerating clear liquid diet w/ two episodes of nausea noted. Moving 2PA to BSC, very weak at this time, bed alarm is in place. NS running as ordered; SED's in place. Pt states her pain has not been managed, asking for something more at this time. JACKIE Jenkins notified & new order of 2mg IV Morphine placed into computer. VSS on RA 013- IV Morphine dosing changed per pt's req & need for higher dosage to control pain. Pt comfortable after admin of that med, resting without any needs.
[2019-01-04] MEDS: MORPHINE 2 MG/ML INJ IV ×4 (01:12→20:17)
[2019-01-04 06:24] LABS: Albumin 2.7 g/dL (3.5-5.0); Albumin Globulin Ratio 1.1 (1.0-2.8); Alkaline Phosphatase 67 U/L (38-126); Aspartate Aminotransferase 551 IU/L (14-36); BUN Creatinine Ratio 25.7 (6-22); Bilirubin Total 0.7 mg/dL (0.2-1.3); Blood Urea Nitrogen 18 mg/dL (7-17); Calcium 7.9 mg/dL (8.4-10.2); Carbon Dioxide 22 mmol/L (22-32); Chloride 104 mmol/L (98-107); Estimated Glomerular Filt Rate > 60.0 mL/min (>60); Globulin 2.5 g/dL (1.7-4.1); Glucose 85 mg/dL (80-110); HEMOLYSIS < 15 (0-50); Potassium 2.9 mmol/L (3.4-5.1); Sodium 132 mmol/L (137-145); Total Protein 5.2 g/dL (6.3-8.2)
[2019-01-04] MEDS: SODIUM CHLORIDE 0.45% 1,000 ML 100 ML IV ×2 (06:33→15:46)
[2019-01-04 06:42] LABS: Alanine Aminotransferase 1043 IU/L (9-52)
[2019-01-04] MEDS: POTASSIUM CHLORIDE 80 MEQ in SODIUM CHLORIDE 0.9% 1,000 ML 130 ML IV (07:45)
[2019-01-04] MEDS: ONDANSETRON 4 MG/2 ML INJ IV (07:58)
[2019-01-04] MEDS: PANTOPRAZOLE 40 MG VIAL IV (09:18)
[2019-01-04] MEDS: AMIODARONE 200 MG TABLET PO (09:19)
[2019-01-04] MEDS: METOPROLOL ER 50 MG TABLET PO ×2 (09:19→20:19)
[2019-01-04] MEDS: PARoxetine 10 MG TABLET PO (09:19)
--- NOTE | 2019-01-04 11:32 | PC.NURSE ---
Addendum entered by Katie Burgos R.N. 01/04/19 14:10: GI/PAIN - landon sips broth at lunch, states doesn't really feel better today, continues with underlying nausea and back discomfort, given 2mg iv morphine. Original Note: AM NOTE - pt awakens, assist x 1 person oob to bsc, voided 800ml clear urine, states chronic back pain can I have pain medication, it's after 6, chronic back pain, ongoing nausea, given 4mg iv zofran and then 2mg iv morphine, pt declines oob to chair, ret to bed, later landon broth.
--- NOTE | 2019-01-04 15:15 | CM.DANOTE ---
DCP: Case received, EMR reviewed. Obtained information regarding patient from daughter, who is medical POACharity, via phone. DCP template was completed from information obtained, and that was available. Patient is a 78 year old female who admitted on 01/02 in the evening, to the care of the hospitalist team. PCP: Dr. Briceno. Payer: confirmed: Medicare. Patient came to hospital via family vehicle secondary to nausea and vomiting, as well as decreased appetite. Patient has history of daily marijuana use, and had same symptoms after use of this. She was recently hospitalized here on Sep 30, for possible cannabis related hyperemesis. 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 Patient had been to [facility] recently, and daughter stated that she was only there for a few days. She then had [facility] come in, and they recently discharged her. Daughter stated that her mother is independent, but she smokes Cannabis often, and has had vomiting with this before. She confirmed that her mother needs to stop, and she stated that she would. Daughter stated that patient can go back home, but it would be nice if she could go back to [facility]. Let her know that at this time, she is under observation, and would not be covered with skilled service. Daughter is ok with having [facility] come back in, if that's the case. Patient is also dehydrated, and has history of a-fib as well. P: DCP to continue to follow closely. Will ask hospitalist if she can have a P.T. eval when she is more medically stable. Continue to monitor if OBS status changes, and if not, can pursue home health through [facility]. Shala Morejon RN/Muck Operator
[2019-01-04] MEDS: WARFARIN 2 MG TABLET PO (17:58)
--- NOTE | 2019-01-04 18:56 | PM.PN.1 ---
Subjective Date Patient Seen: 01/04/19 Interval history: Patient is 70-year-old female admitted with recurrent acute vomiting. Patient is feeling better and has not had any more emesis today. She would like diet advanced. She is complaining of exacerbation of her chronic back pain for which she is on Percocet. Exam Vital Signs (past 8 hours): - 01/04/19 12:47 01/04/19 15:49 01/04/19 16:00 Temperature 97.4 F L 98.2 F Pulse Rate 78 78 Respiratory Rate 18 17 Blood Pressure 141/83 H 129/79 Pulse Oximetry 100 95 100 Oxygen Delivery Method Room Air Oxygen Flow Rate 0 Narrative Exam Narrative: General: Alert thin female in no acute distress Lungs: Clear to auscultation Heart: regular rhythm Abdomen: Mild epigastric tenderness, no guarding Extremities: No edema Neurological: Well oriented, nonfocal Objective Labs Result Diagrams: 01/03/19 05:32 01/04/19 05:26 Labs: Laboratory Results - last 24 hr 01/03/19 01/04/19 17:25 05:26 Sodium 132 L Potassium 2.9 L Chloride 104 Carbon Dioxide 22 BUN 18 H Creatinine 0.70 Estimated GFR > 60.0 BUN/Creatinine Ratio 25.7 H Glucose 85 Calcium 7.9 L Total Bilirubin 0.7 AST 551 H ALT 1043 H Alkaline Phosphatase 67 Total Protein 5.2 L Albumin 2.7 L Globulin 2.5 Albumin/Globulin Ratio 1.1 Hep Bs Antigen Negative Hepatitis C Antibody Negative Assessment & Plan Assessment & Plan narrative: 1. Intractable nausea and vomiting, present on admission, recurrent -patient previously admitted for same complaint on September 30, 2018 considered secondary to cannabis hyperemesis syndrome. -onset of symptoms for 1 day following smoking marijuana, patient's daughter endorses the patient using marijuana prior to previous admission for same condition. -improving hospital course -advance to regular diet as tolerated -continue Zofran and lorazepam if needed -ruled out other potential etiology with further investigation of elevated LFTs and periductal fluid collection as other possible sources -educated patient on association of cannabis with cyclic vomiting and to avoid further use in the future 2. Acute dehydration, present on admission -nausea vomiting with poor oral intake for 1 week. -patient hemoconcentrated with hemoglobin of 17.3 and hematocrit of 52.9, elevated BUN creatinine ratio of 50:1 -resolved, IV hep-locked 3. Acute Gastritis, present on admission -acute gastritis related to intractable nausea vomiting -patient with epigastric tenderness on palpation -ultrasound imaging identifies thickened distal gastric wall with hyperemia. -CT exam does find moderate extrahepatic ductal dilation considered normal for surgically absent gallbladder -Protonix 40 mg IV daily 4. Acute elevation transaminases, present on admission -unclear etiology but improving -elevation of LFTs on prior admission in September with an AST of 55, ALT of 340 and alkaline phosphatase of 83. -labs on admit total bili of 1.2, AST of 1059, ALT 1644, alkaline phosphatase normal at 1 1 as well as an elevated lipase at 367. -negative viral serology -requested surgery consult related to CT findings of ductal dilatation, and elevated liver functions in a patient with surgically absent gallbladder. -Thank you Dr. Parikh for your evaluation with recommendation for rehydration and re-evaluation as described above 5. Chronic long-term anticoagulation on warfarin -patient is taking warfarin 4 mg on and Sundays and 2 mg all other days. -no untoward bleeding or bruising noted -INR is therapeutic at 2.4, will continue current warfarin dosing regimen. -recheck INR in a.m. 6. History of stroke, stable -prior stroke with expressive aphasia and dysarthria not appreciated on exam today 7. Chronic back pain present on admission -patient with lumbosacral back pain left greater than right -history of chronic pain treated with opiates with recent increase and Percocet dosing to 3 times daily -patient has been prescribed gabapentin but not taking the medication due to ?too many pills?, review purpose of medication and expected outcome of use with the patient -resumed oxycodone 10 mg b.i.d. -continue gabapentin 300 mg nightly -morphine 2 mg IV q.4 hours as needed for severe pain. 8. Chronic Atrial fibrillation, present on admission -irregularly irregular rhythm with controlled ventricular rate. -continue amiodarone 200 mg daily and metoprolol succinate 50 mg twice daily -INR monitoring on warfarin as above 9. Hypokalemia -ordered additional 80 mEq IV potassium rider -recheck labs in a.m. Patient with improving hospital course and possibly can discharge tomorrow, Sunday.
[2019-01-04] MEDS: GABAPENTIN 300 MG CAPSULE PO (20:19)
[2019-01-04] MEDS: OXYCODONE IR 10 MG TABLET PO (23:31)
--- NOTE | 2019-01-05 01:23 | PC.NURSE ---
2300- Pt denies any nausea or vomiting at this time, tolerating a regular diet so this has been ordered and advanced. Started pt on home regimen of PO oxycodone; NS running as ordered into R upper arm IV. VSS on RA, moving 1PA. 2330- Pt CO pain at IV site, site is bruised and irritated upon assessment. IV removed for pt's safety & comfort. 2 attempts to insert new IV by this RN; two more attempts by additional RN. No success. Tele Hosp notified that IV fluids would be paused until DI nurse could come in to get new IV access. Sched PO oxycodone not given at 2100, per pt's request this dose given late. BP & RR remain stable
[2019-01-05 04:40] VITALS: BP 138/84; PULSE 79; RESP 16; TEMP 36.9; O2SAT 100
[2019-01-05 05:27] LABS: INR 3.8 (0.9-1.3); Prothrombin Time 45.4 SECONDS (10.1-12.7)
[2019-01-05 05:33] LABS: Alanine Aminotransferase 778 IU/L (9-52); Albumin 2.8 g/dL (3.5-5.0); Alkaline Phosphatase 73 U/L (38-126); Aspartate Aminotransferase 241 IU/L (14-36); BUN Creatinine Ratio 17.1 (6-22); Bilirubin Total 0.6 mg/dL (0.2-1.3); Blood Urea Nitrogen 12 mg/dL (7-17); Calcium 8.2 mg/dL (8.4-10.2); Carbon Dioxide 24 mmol/L (22-32); Chloride 106 mmol/L (98-107); Estimated Glomerular Filt Rate > 60.0 mL/min (>60); Globulin 2.7 g/dL (1.7-4.1); Glucose 89 mg/dL (80-110); HEMOLYSIS 16 (0-50); Potassium 3.3 mmol/L (3.4-5.1); Sodium 134 mmol/L (137-145); Total Protein 5.5 g/dL (6.3-8.2)
[2019-01-05 07:00] VITALS: O2SAT 98
[2019-01-05 07:28] LABS: Magnesium 1.6 mg/dL (1.6-2.3)
[2019-01-05 08:00] VITALS: BP 163/94; PULSE 81; RESP 18; TEMP 36.4; O2SAT 98
[2019-01-05] MEDS: PARoxetine 10 MG TABLET PO (08:29)
[2019-01-05] MEDS: OXYCODONE IR 10 MG TABLET PO (08:29)
[2019-01-05] MEDS: AMIODARONE 200 MG TABLET PO (08:29)
[2019-01-05] MEDS: METOPROLOL ER 50 MG TABLET PO (08:29)
--- NOTE | 2019-01-05 08:55 | PT.IIE ---
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) use of anticoagulants (01/02/19) Surgical History (Last Reviewed 01/02/19 @ 23:08 by [place], Pharm.D) Hx of cholecystectomy (Acute) Medical History (Last Reviewed 01/02/19 @ 23:38 by JACKIE Yu) Smoker (Acute) Atrial fibrillation (Acute) Chronic anticoagulation (Acute) History of stroke (Acute) Expressive aphasia (Acute) Chronic back pain (Acute) Atrial fibrillation with RVR (Acute) CVA (cerebrovascular accident) (Acute) Dysarthria (Acute) Physical Therapy Inpatient Evaluation/Re-Eval M1 PT/OT-IP Prior Functional Status Start: 01/05/19 12:38 Freq: NEEDED Status: Active Protocol: Document 01/05/19 08:55 [facility] (Rec: 01/05/19 12:47 [facility] [id number]) Medical Review Prior Functional Status Medical History Reviewed Yes Mobility and Gait indep. gait without device Activities of Daily Living and IADL's indep ADLs Prior Functional Level (Other details) lives with son-in-law and daughter Social History Household Members family children Living Arrangements House Number of Floors (Floors) One Floor Number of Stairs To Enter/Railing? no steps Home Environment Walk in Shower Home Equipment Front Wheel Walker Shower Seat with Backrest Hand Held Shower Grab Bars Near Toilet Grab Bars In Shower Additional Social History Comment pt with nausea and vomiting x1 wk presented to the ER. M2 PT-IP Current Condition Start: 01/05/19 12:38 Freq: NEEDED Status: Active Protocol: Document 01/05/19 08:55 [facility] (Rec: 01/05/19 12:47 [facility] [id number]) Physical Therapy Current Condition Current Condition Evaluation Date 01/05/19 Treatment Diagnosis nausea and vomiting, impaired activity tolerance M3 PT-IP Subjective Start: 01/05/19 12:38 Freq: NEEDED Status: Active Protocol: Document 01/05/19 08:55 [facility] (Rec: 01/05/19 12:47 [facility] [id number]) Subjective Physical Therapy Visit Type Type Initial Evaluation Visit Start Time 08:55 Visit Stop Time 09:10 Total Visit Minutes 15 Number of STEEL PLATE PRINTER Visits 0 Physical Therapy Visit Comments Patient Comments pt states she is tired Patient Goals to get sleep Therapy Pain Assessment Pain Present Pain Present Denied Pain M4 PT-IP Mobility and Gait Start: 01/05/19 12:38 Freq: NEEDED Status: Active Protocol: Document 01/05/19 08:55 [facility] (Rec: 01/05/19 12:47 [facility] [id number]) PT-Bed Mobility Assessment Supine to Sit Supine to Sit Independent Sit to Supine Sit to Supine Independent Scooting Scooting to Edge of Bed Independent PT-Transfer Assessment Sit to and From Stand Sit to and from Stand Standby Assistance Equipment Transfer Assistive Device Gait Belt Front Wheeled Walker Transfers Transfer Destination Bed Transfer Technique Stand Step Pivot Transfer Ability Level of Assist Standby Assistance Gait Assessment Gait Gait Assistance Required: Standby Assistance Distance (Feet) 75 Assistive Devices Assistive Device Gait Belt Front Wheeled Walker Gait Deviations General Gait Pattern Decreased Feet Clearance Festinating Factors Limiting Gait Function Factors Limiting Gait Function Decreased Activity Tolerance Decreased Strength Comments Gait Comments slow to initiate sit<->stand and initial shuffling gait which decreased as ambulation distance progressed PT-Balance Assessment Sitting Balance and Reactions Static Sitting Balance Ability Good Dynamic Sitting Balance Ability Good Standing Balance and Reactions Static Standing Balance Ability Good Dynamic Standing Balance Ability Fair Device Used FWW M5 PT-IP Objective Assessments Start: 01/05/19 12:38 Freq: NEEDED Status: Active Protocol: Document 01/05/19 08:55 [facility] (Rec: 01/05/19 12:47 [facility] [id number]) Orientation Orientation/Cognition Level of Alertness Alert Gross Range of Motion Lower Extremity ROM Assessment Within Functional Limits Strength Lower Extremity Strength Assessment Bilaterally Impaired Comments Strength Comments LE grossly 4/5 B hip flexion, knee flex/extension Sensation Assessment Sensation Gross Sensation WNL M6 PT-IP Treatment Start: 01/05/19 12:38 Freq: NEEDED Status: Active Protocol: Document 01/05/19 08:55 [facility] (Rec: 01/05/19 12:47 [facility] [id number]) Physical Therapy Treatment Education Education Provided Safety M7 PT-IP Assessment and Plan Start: 01/05/19 12:38 Freq: NEEDED Status: Active Protocol: Document 01/05/19 08:55 [facility] (Rec: 01/05/19 12:47 [facility] [id number]) PT Summary Assessment and Plan Potential Rehabilitation Potential Good Status of Condition at Evaluation Stable Summary Impairments Strength Gait Activity Tolerance Assessment Summary Pt able to ambulate 75 ft with FWW, reports she will use her walker at home upon d/c. Pt does have some difficulty with initiating movements of sit<- >stand, but no loss of balance with the use of a FWW. Once medically stable, pt appears that if she is given initially assistance at home that she would be able to return home when medically stable. Recommend home health services to monitor and progress this pt. Goals Bed Mobility Goal Independent Transfer Goal Independent Gait Goal Standby Assistance Front Wheel Walker Gait Distance 150 Days to Meet Goals 5 Frequency of Treatment Frequency Of Treatment Once a Day Treatment Plan Physical Therapy Treatment Plan Gait Training Therapeutic Exercise Balance Retraining Discharge Planning Neuromuscular Re-ed Other Recommendations and Next Treatment progress gait, sit<->stand Focus transitions Recommendations To Nursing Amount of Assist Needed 1 Person Assist Discharge Recommendations PT Discharge Recommendations Home with Assistance Home Health
--- NOTE | 2019-01-05 12:41 | P.DS_ITS ---
History of Present Illness Date Patient Seen: 01/02/19 Chief complaint: N/V and not eatting x1 week Narrative: Written by Fabricio MEJIA: Felix Kong is a 74-year-old female patient with a prior history atrial fibrillation on long-term anticoagulation with warfarin, CVA, expressive aphasia, dysarthria, chronic back, and depression presents to the ER today for severe nausea and vomiting for one week. The patient is a difficult historian however reports that she has not been able to eat or drink fluids for one week. Her daughter whom the pateint lives with is at bedside and suppliments the patie nt history. She has a prior history of nausea and vomiting and has been prescribed Reglan which she no longer takes and Zofran for 3-4 years. The patient was admitted on 09/30/2018 under similar circumstances. The patient's daughter endorses today that the patient became severely nauseated with vomiting following smoking marijuana and notes that the patient smoked marijuana once again 1 week ago becoming severely nauseated and vomiting the next day. Patient complains of epigastric pain but states she feels better after I had dehydration in the emergency department. She has chronic low back pain for which she has had an increase in her Percocet in attempt to control pain and eliminate use of marijuana for pain management. She reports no complaints of fevers or chills, headaches or dizziness, chest pain or shortness of breath and denies diarrhea or constipation. On arrival in the ER the patient was found to be afebrile a temperature of 97.9? tachycardic at 107 with a blood pressure 148/105 and respirations of 16 and oxygen saturation 100% on room air. Patient underwent CT of the abdomen pelvis which defy the liver as normal with an absent gallbladder and moderate ductal dilation at 15 mm with extrahepatic fluid collection. In comparison abdominal ultrasound was obtained following consultation with General surgery that identifies coarsely heterogeneous liver parenchyma with a 1.3 x 1.2 x 0.9 cm hypoechogenic area in the anterior periphery of the right lobe. The ultrasound finds no ductal dilatation measuring 7-8 mm and 1.2 cm proximally. The exam further identifies hyperemic tissue in the distal stomach proximal small bowel with wall thickening. On laboratory analysis patient had elevated white count at 14.7 hemoglobin 17.3 and hematocrit of 52.9 and platelets of 438. Sodium was slightly low 133 with normal potassium. Her BUN is 50 and creatinine is 1.0. She has a normal bilirubin at 1.2 however AST is 1059 and ALT is 1644 with a lipase of 367. Procalcitonin is negative at 0.08 and her troponin was also negative at 0.024. Her INR is therapeutic at 2.6 with an elevated APTT at 40. Urinalysis is positive for ketones and trace proteins but no indications of infection. Discharge Providers Date of admission: 01/02/19 22:34 Discharge Date: 01/05/19 Primary care physician: Jonathan Wood ND Consults: 01/03/19 00:40 Consult to Dietitian, Adult Routine Comment: Reason For Exam: BMI, .recent wt loss 01/05/19 07:46 Consult to Occupational Therapy Evaluate & Treat Comment: Physician Instructions: Evaluate and treat Consult to Physical Therapy Evaluate & Treat Comment: Physician Instructions: Evaluate and Treat 01/05/19 08:04 Consult to Occupational Therapy Evaluate & Treat Comment: Physician Instructions: Evaluate and treat Consult to Physical Therapy Evaluate & Treat Comment: Physician Instructions: Evaluate and Treat 01/05/19 11:38 Consult to Home Health Routine Comment: Reason For Exam: Nursing, P.T, O.T. Discharge provider: Simin Allred DO Summary Discharge Diagnosis: 1. Cyclical nausea and vomiting, secondary to hyperemesis cannabis, present on admission. Recurrent. 2. Acute gastritis, present on admission. Resolving. 3. Acute dehydration, present on admission. Resolved. 4. Acute on chronic transaminitis, present on admission. Improving. 5. Acute on chronic severe protein calorie malnutrition with severe failure to thrive, present on admission. Active. 6. Acute on chronic leukocytosis, present on admission. Acute portion resolving. 7. History of CVA. 8. Chronic back pain, secondary to scoliosis, with opiate dependence, present on admission. Stable. 9. Chronic atrial fibrillation on warfarin, present on admission 10. Acute hypokalemia, present on admission. Stable. 11. Probable Parkinson?s disease, chronic, present on admission. Stable. Hospital Course: Christie Kong is a 74-year-old female patient with a prior history atrial fibrillation on long-term anticoagulation with warfarin, CVA with residual expressive aphasia and dysarthria, chronic back, depression, and chronic abdominal pain with nausea and vomiting x3 years who presented for cyclical nausea and vomiting. 1. Cyclical nausea and vomiting, secondary to hyperemesis cannabis, present on admission. Recurrent. -Patient previously admitted for same complaint on 09/30/28 and considered secondary to cannabis hyperemesis syndrome at that time. -Patient symptomatic with onset of symptoms 1 day following smoking marijuana. Patient's daughter endorses that the patient was using marijuana prior to first admission for cyclical vomiting. -Continued to tolerate diet advancement, now regular diet. -Continued Zofran and lorazepam as needed. -Previous gastric emptying study which was abnormally fast and CT abdomen and pelvis and U/s demonstrating gastric pyloric thickening and thickened distal gastric wall with hyperemia consistent with likely gastritis. Previous EGD/colonoscopy 3 years ago in [place] which was reportedly normal. Consider repeating outpatient. -Educated patient on association of cannabis with cyclic vomiting and to avoid further use of marijuana in the future. 2. Acute gastritis, present on admission. Resolving. -Secondary intractable nausea and vomiting as above. -Patient with epigastric tenderness on palpation -Continued Protonix 40 mg IV daily 3. Acute dehydration, present on admission. Resolved. -Patient presented with nausea, vomiting, and poor oral intake for 1 week. -Patient hemoconcentrated with hemoglobin of 17.3 and hematocrit of 52.9, el evated BUN creatinine ratio of 50:1 -Continued to hydrate with IV fluids until adequately hydrated. 4. Acute on chronic transaminitis, present on admission. Improving. -Unclear etiology but improving. -Prior admission LFTs were only mildly elevated in September with an AST of 55, ALT of 340 and alkaline phosphatase of 83. -Initial LFTs on admission were total bili of 1.2, AST of 1059, ALT 1644, alkaline phosphatase normal at 1 1 as well as an elevated lipase at 367. -Negative viral serology -Ordered surgery consult due to concern for CT findings of moderate extrahepatic biliary ductal dilatation and gastric antrum and U/S with gastric wall thickening and hyperemia with recommended endoscopy.We appreciate their time and recommendations which to rehydrate. 5. Acute on chronic severe protein calorie malnutrition with severe failure to thrive, present on admission. Active. -Patient presented with weight of 38 kg/BMI 14 placing her in less than 60% of the 50th percentile for weight and age per [facility] Guidelines for severe failure to thrive. -Patient with longstanding history of nausea and vomiting with chronic use of Reglan and Zofran. -Continue Zofran and added Ativan 0.5 mg p.o. 3 times daily as needed. Discontinued Reglan as patient has signs of tardive dyskinesia. -Continued to rehydrate as above. -Ordered high-calorie diet. -Consulted dietitian for evaluation and treatment who also has assessed the patient with severe acute protein calorie malnutrition. -Ordered speech therapy evaluation and treatment. 6. Acute on chronic leukocytosis, present on admission. Acute portion resolving. -No apparent signs infection (Afebrile, UA negative, abdomen soft, p rocalcitonin<0.08, CT negative). Due to chronic nausea and vomiting acute portion likely related to stress response and dehydration. -Review of WBC trend reveals WBC ~14 range chronically. Continue to monitor WBC daily. 7. History of CVA. -History of stroke with expressive aphasia and dysarthria but not a persistent deficit and no longer apparent. 8. Chronic back pain, secondary to scoliosis, with opiate dependence, present on admission. Stable. -Patient has severe scoliosis with chronic lumbosacral back pain L>R and opiate dependence. -Patient has been prescribed gabapentin but not taking the medication due to ?too many pills.? Previously reviewed purpose of medication and expected outcome with the patient. Continued gabapentin 300 mg at bedtime. -Continued home oxycodone 10 mg twice daily as needed for moderate pain and morphine 2 mg IV every 4 hours as needed for breakthrough severe pain. 9. Chronic atrial fibrillation on warfarin, present on admission -Currently rate controlled. -Continue amiodarone 200 mg daily and metoprolol succinate 50 mg twice daily. -patient is taking warfarin 4 mg on and Sundays and 2 mg all other days. No signs of bleeding. H&H stable. -Initial INR supratherapeutic at 3.1. Stable then trended up to 3.8. Recommended holding warfarin for 2 days and following up with INR through and results sent to Coumadin clinic. Patient is likely vitamin K deficient from acute on chronic protein malnutrition. Discussed previously with her PCP, Dr. Briceno, who indicated he would continue warfarin and place her on low-dose vitamin K if her INR continues to trend up as she is high risk of CVA. 10. Acute hypokalemia, present on admission. Stable. -Initial potassium. Last potassium was 3.3 prior to receiving second 60 mEq. -Received several KCl riders, 60 mEq x 2 and 80 mEq x1. - Repeat BMP in 2-3 days for PCP to follow and will likely need to be started on replacement supplementation. 11. Probable Parkinson?s disease, chronic, present on admission. Stable. -Possible tardive dyskinesia from chronic Reglan? Also has pill-rolling tremor, rigidity, cogwheeling and masked facies. -Continued to recommend outpatient neurology consultation. Exam Vital Signs (past 8 hours): - 01/05/19 07:00 01/05/19 08:00 Temperature 97.6 F Pulse Rate 81 Respiratory Rate 18 Blood Pressure 163/94 H Pulse Oximetry 98 98 Oxygen Delivery Method Room Air Oxygen Flow Rate 0 Narrative Exam Narrative: General: Elderly cachectic and emaciated female sitting in bed, appears comfortable, appropriately interactive. HEENT: Normocephalic, atraumatic. External ears without defect. Pupils equal, round, and reactive to light. Anicteric sclerae, moist conjunctivae, and no lid lag. Dentures. Neck: Supple with full range of motion. No lymphadenopathy or thyromegaly. Cardiovascular: Distant but appears to be regular irregulor without murmurs, rubs, or gallops appreciated Pulmonary: Difficult to auscultate heart sounds due to inability to make contact with skin as patient is thin and ribs protrude. Appears clear to auscultation bilaterally without crackles, wheezes, or rhonchi. Normal respiratory effort with no use of accessory muscles. Abdomen: Soft, scaphoid, bowel sounds present, non-tender, nondistended. No hepatosplenomegaly or masses appreciated. Extremities: No clubbing, cyanosis, or edema. Skin: Normal temperature, turgor, and texture; no rash, ulcers, or subcutaneous nodules appreciated. Neurological: Cranial nerves grossly intact. Pill rolling tremor, cogwheel rigidity, masked facies adn tardive dyskinesia/repetitive mouth movement all consistent with parkinsonian like presentation. Psychiatric: Normal mood and affect. Appears to be alert and oriented to person, place, and time. Objective Labs Result Diagrams: 01/03/19 05:32 01/05/19 04:38 Labs: Laboratory Results - last 24 hr 01/05/19 01/05/19 01/05/19 04:38 04:38 04:38 PT 45.4 H D INR 3.8 H Sodium 134 L Potassium 3.3 L Chloride 106 Carbon Dioxide 24 BUN 12 Creatinine 0.70 Estimated GFR > 60.0 BUN/Creatinine Ratio 17.1 Glucose 89 Calcium 8.2 L Magnesium 1.6 Total Bilirubin 0.6 AST 241 H ALT 778 H Alkaline Phosphatase 73 Total Protein 5.5 L Albumin 2.8 L Globulin 2.7 Albumin/Globulin Ratio 1.0 Discharge Plan Discharge Plan Patient Disposition: Home Health Service Transfer to: [facility] Discharge comment: You are being discharged home. Your cyclical nausea and vomiting with profound weight loss is related to marijuana use and called hyperemesis cannabis. Please stop using marijuana indefinitely. Recommend outpatient follow-up with your PCP in the next 1 week to discuss your hospitalization and a referral to a dietitian to implement a diet to help with weight gain. Your INR is supratherapeutic currently at 3.8 and recommend holding your warfarin dose for the next 2 days then restarting at your normal dose scheduled. Please have your blood work performed by [facility] including BMP, magnesium, and INR in 2-3 days. Also recommend a neurology consult outpatient to discern whether you have Parkinson's disease or parkinsonian features and to discuss possible treatments. Discharge Med Rec/Prescriptions Prescriptions: Continued paroxetine HCl 10 mg tablet 1 tab PO DAILY RF: 0 warfarin 4 mg tablet 4 mg PO QPM RF: 0 gabapentin 300 mg capsule 300 mg PO BEDTIME RF: 0 ondansetron 4 mg tablet,disintegrating 1 tab PO Q4-6H PRN (Reason: Nausea) RF: 0 metoprolol succinate 50 mg tablet extended release 24 hr 50 mg PO BID RF: 0 amiodarone 200 mg Tablet 200 mg PO DAILY RF: 0 oxycodone-acetaminophen 10-325 mg tablet 1 tab PO BID Qty: 30 RF: 0 lorazepam 0.5 mg tablet 0.5 mg PO TID PRN (Reason: Anxiety) RF: 0 Other Ambulatory Orders: Basic Metabolic Panel (Routine) Timeframe: 2 Days Location: Laboratory Ordered By: Simin Allred Magnesium (Routine) Timeframe: 2 Days Location: Laboratory Ordered By: Simin Allred Prothrombin Time INR (Routine) Timeframe: 2 Days Location: Laboratory Ordered By: Simin Allred Follow up/Referrals: Jonathan Wood ND [Primary Care Provider] - Provider Discharge Instructions Diet: Diet as Tolerated, Low-fat, Low-sodium and Low-cholesterol Visit Report/Discharge Packet Instructions: DI for Dehydration -- Adult, DI for Cyclic Vomiting Syndrome- Child Discharge Data Primary Care Provider: Jonathan Wood Attending Provider: Fabricio Jenkins Admteresita Date/Time: 01/04/19 19:15 Discharges patient from system. Discharge Date/Time: 01/05/19 15:35
--- NOTE | 2019-01-05 13:04 | CM.DPC ---
DCP Cont: Discussed patient in team rounds. P.T. stated that she is ambulating with her walker, and home health would be an option. Let hospitalist know that this correctional casework specialist would call daughter, for if she is stable, can discharge today. She will need to have labs done in 2 days, including INR, since her warfarin is being held. Left message with Sadaf at [facility], since they have worked with her before. In message, mentioned that she will need nursing, P.T, as well as O.T. Sent over DC summary, orders, and face to face which is complete. Daughter, Charity, is on board with plan. P: Patient is to be discharged home today with [facility] services. Shala Morejon RN/Bag Loader
[2019-01-05] MEDS: MAGNESIUM CHLORIDE 64 MG TABLET PO (13:53)
[2019-01-05] MEDS: POTASSIUM CHLORIDE 20 MEQ TAB 40 MEQ PO (14:52)
[2019-01-08 09:24] LABS: Hepatitis A Ab Total Nonreactive (Nonreactive)
== END 2019-01-05 15:35 | disposition home health service (06) | DRG 917 ==
LOC: ED 13:34 → AC 22:36
PROVIDERS: Family Medicine; Internal Medicine; Admitting Provider Nurse Practitioner Adult Health; Emergency Provider Nurse Practitioner Family; PCP Hospitalist; Visit Provider Nurse Practitioner Adult Health
DX: T40.7X1A Poisoning by cannabis (derivatives), accidental (unintentional), initial encounter (principal); E43 Unspecified severe protein-calorie malnutrition; R11.2 Nausea with vomiting, unspecified; E86.0 Dehydration; I48.2 Chronic atrial fibrillation; G20 Parkinson's disease; K29.70 Gastritis, unspecified, without bleeding; I69.322 Dysarthria following cerebral infarction; I69.320 Aphasia following cerebral infarction; E87.6 Hypokalemia; R74.0 Nonspecific elevation of levels of transaminase and lactic acid dehydrogenase [LDH]; Z79.01 Long term (current) use of anticoagulants; F17.210 Nicotine dependence, cigarettes, uncomplicated; G89.29 Other chronic pain
CPT/HCPCS: 36415; 36591; 74177; 76705; 80053; 81001; 82550; 83690; 83735; 84100; 84145; 84484; 85025; 85610; 85730; 86803; 87340; 96361; 96374; 96375; 97161; 99285; G0378; C9113; J2060; J2270; J2405; J3480; J7050; Q9967